=== PATIENT | female | born 1945 | race Caucasian/White ===

== ENCOUNTER 2020-04-05 07:06 | Outpatient (CLI) | payer MEDICARE, OTHER, SELFPAY ==
--- NOTE | 2020-04-05 07:32 | ECG_ITS ---
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 Interpretive Statements NAME OF STUDY: LEXISCAN SESTAMIBI STRESS TEST INDICATION: Chest Pain PROCEDURE: At the baseline, the blood pressure was 170/93 mmHg, oxygen saturation 94% with a heart rate of 73 bpm. The electrocardiogram showed sinus rhythm with frequent isolated PVCs. Possible old septal infarct. The Lexiscan was infused over a period of 20 seconds. A total of 0.4 milligrams of Lexiscan was infused. The stress phase was continued for a total of 5 minutes. Heart rate at the end of the stress phase was 90 bpm, oxygen saturation 96% with a blood pressure of 200/102 mmHg. The EKG at the peak infusion revealed sinus rhythm at 90 bpm with frequent isolated PVCs. No significant ST-T wave changes. Sestamibi was injected 20 seconds after the Lexiscan infusion. Blood pressure at the end of the recovery phase was 189/99 mmHg, oxygen saturation 94% with a heart rate of 87 beats per minute. CONCLUSION: 1. No significant EKG changes with the LexiScan infusion. 2. No LexiScan induced chest pain or cardiac arrhythmia. 3. Normal blood pressure and heart rate response. 4. Sestamibi/sestamibi perfusion scan pending; see separate report. Electronically Signed On 04-05-2020 14:03:14 CDT by Liliana Young M.D. [id number]
--- NOTE | 2020-04-05 07:33 | NMCV_ITS ---
NM matty perf SPECT r/s* [id number] Amaris Romero Age: 75 Gender: F : 1945 Exam Date: 04/05/2020 08:34 Ordering Phys: Abdoul Robles MD Technologist: CHRISTY Mendieta Exam Location: [facility] Indications: CHEST PAIN STRESS TEST Please [facility] IMAGE PROTOCOL Rest/Stress 1 Lexiscan Day Radiopharmaceutical Dose (mCi) Administration Site Administered by Rest: Tc-99m 10.8 IV June Zimmeramn BAKERY TEAM LEADER Sestamibi Stress:Tc-99m 32.4 IV June Zimmerman, BAKERY TEAM LEADER Sestamibi Rest: 05-Apr-2020 60 Discovery 630 Stress: 05-Apr-2020 30 Discovery 630 0.4mg Lexiscan. Images obtained in supine and prone position. SPECT RESULTS Technical Quality: Good Raw Data Analysis: Normal; UNABLE TO GATE DUE TO PVCs Image Corrections: No attenuation or motion correction applied Summed Stress Score: 0 Summed Rest Score: 0 Summed Difference Score: 0 PERFUSION FINDINGS Very small size perfusion abnormality of mild severity of apical anterior and apical lateral wall on rest images with improved tracer uptake in apical anterior wall on prone stress images. This is likely suggestive of attenuation artifact. FUNCTIONAL RESULTS (calculated via Gated SPECT) TID: 1.15 FUNCTIONAL FINDINGS: The left ventricle is normal in size. Transient Ischemia Dilatation of 1.1. Study could not be gated due to frequent PVCs. IMPRESSIONS 1. Myocardial perfusion imaging is normal. Attenuation artifact noted on apical anterior and apical lateral donovan. 2. The left ventricle is normal in size. Transient Ischemia Dilatation of 1.1. 3. Study could not be gated due to frequent PVCs. 4. No ischemia noted on the study. 5. No prior similar studies to compare. Liliana Young MD (Electronically Signed) Final Date: 05 April 2020 14:10 S
[2020-04-05 07:48] VITALS: BMI 24.3
[2020-04-05] MEDS: regadenoson 0.4 Mg/5 ml Syringe IVP (09:28)
[2020-04-05 09:42] VITALS: BP 189/99; PULSE 86
== END 2020-04-05 07:07 | disposition home or self-care (01) ==
LOC: CDL 07:07
PROVIDERS: PCP Family Medicine; Visit Provider Family Medicine
DX: R07.9 Chest pain, unspecified (principal)
CPT/HCPCS: 78452; 93017; A9500; J2785

== ENCOUNTER 2020-06-01 12:58 | Outpatient (CLI) | payer MEDICARE, OTHER, SELFPAY ==
--- NOTE | 2020-06-01 13:06 | MM_ITS ---
WS: [id number] BILATERAL SCREENING DIGITAL MAMMOGRAM WITH CAD HISTORY: SCREENING COMPARISON: 04/02/2019, 03/05/2018 and 03/04/2017 Bilateral CC and MLO views submitted. Computer aided detection analyzed. Breast composition: There are scattered areas of fibroglandular density. No suspicious masses, microc alcifications or architectural distortion. Stable benign granulomas and parenchymal pattern. MM/[place] [id number] IMPRESSION: BI-RADS: 2-Benign FOLLOW UP: 1 Year Follow-up
== END 2020-06-01 12:59 | disposition home or self-care (01) ==
LOC: RADSHAW 13:02
PROVIDERS: PCP Family Medicine; Visit Provider Family Medicine
DX: Z12.31 Encounter for screening mammogram for malignant neoplasm of breast (principal)
CPT/HCPCS: 77067

== ENCOUNTER 2021-01-26 08:41 | Outpatient (CLI) | payer MEDICARE, OTHER, SELFPAY ==
[2021-01-26 11:28] LABS: Basophils % 0.3 %; Eosinophils % 0.1 %; Hematocrit 42.4 % (37.0-47.0); Hemoglobin 13.3 g/dL (11.5-15.3); Lymphocytes # 1.4 10^3/uL (0.8-4.8); Lymphocytes % 17.3 %; Mean Corpuscular HGB Conc 31.4 g/dL (30.0-36.0); Mean Corpuscular Hemoglobin 27.7 pg (28.0-34.0); Mean Corpuscular Volume 88.1 fL (81-99); Mean Platelet Volume 12.1 fL (7.4-10.4); Monocytes # 0.7 10^3/uL (0.2-0.9); Monocytes % 9.4 %; Neutrophils % 72.4 %; Nucleated Red Blood Cells % 0 %; Red Blood Count 4.81 10^6/uL (4.1-5.3); Red Cell Distribution Width 13.3 % (12.1-15.1); White Blood Count 7.9 10^3/uL (4.0-10.0)
--- NOTE | 2021-01-26 11:36 | ONC CON_ITS ---
Dr. Mckenzie New Patient Note Patient: Amaris Romero Unit #: [id number]: 1945 Dicatated By: Angel Mckenzie M.D.Date of Visit: Jan 26, 2021 Onc MED New Patient/Consult Referring Physician: Dr. DARIUS ROBLES M.D. Chief Complaint: Thrombocytopenia. History of Present Illness: This is a 75 year-old woman with mild thrombocytopenia. She has hypertension and chronic anxiety. She had recently seen Dr. Robles with complaints of feeling very tired and having real bad sweating. She apparently was found to have hypothyroidism, and she felt better after starting on thyroid replacement. In the meantime, her laboratory studies apparently also showed a low platelet count for which she had a repeat CBC on 01/02/2021. That study showed a normal hemoglobin at 13.2 g with hematocrit 41.6%. The red cell indices were normal. The white blood cell count was 7100. The platelet count was mildly decreased at 92,000. She says she feels fine now. Since starting the thyroid replacement her energy has improved and she has normal activity. Her appetite is good. She has been gaining weight. She has not had fever. Her sweating is also better now. She has some sinus drainage off and on and she has a little bit of dry cough. She does not complain of shortness of breath. She previously had an episode of significant pain in the substernal/epigastric area radiating through to the back. She had a negative stress test. She has had no other cardiac symptoms. She has heartburn occasionally. She has no other GI or complaints. She complains that her knees hurt and her right middle finger tends to lock up. She has no other joint or bone pain. She does not complain of headache or dizziness. She has no numbness/paresthesia or other focal neurologic symptoms. She has not been aware of abnormal bruising or other bleeding manifestations. Past Medical History: Her medical history includes anxiety, hypertension, and hypothyroidism. She has a remote history of C. difficile colitis. Past Surgical History: Her surgical/procedural history includes arthroscopic right knee surgery, Caesarean section, cholecystectomy, and hysterectomy, probably with unilateral oophorectomy. Medications: Atenolol (25 mg) Tablet Oral daily, Calcium (150 mg) Tablet Oral daily, clonazePAM (1 mg) Tablet Oral b.i.d. PRN, Levothyroxine Sodium (25 mcg) Tablet Oral daily, Losartan Potassium (100 mg) Tablet Oral daily, Maxalt (10 mg) Tablet Oral daily PRN, Multi Vitamin Daily Tablet Oral daily, Venlafaxine HCl ER (75 mg) Capsule SR 24 HR Oral daily Allergies: No Known Allergies. Social History: Ms. Romero is . She had smoked in the past, approximately 1/2 pack of cigarettes daily. She quit smoking at least 40 years ago. She has had very minimal alcohol use and only during the past year or so. Family History: Father of stomach cancer at age 75. Mother with heart disease at age 68. She has 1 brother and 1 sister, health status unknown to the patient. They lost a child at age 4 months. Review Of Symptoms: Constitutional - She had been feeling really tired, that has improved since she started thyroid replacement. She says she feels fine now. She has good appetite. She has gained weight. She has not had fever. She was having a lot of sweating, that also has improved. ECOG score is 0, Eyes - No change in vision, ENMT - No hearing loss or tinnitus. She has sinus drainage off and on. No mouth sores. No sore throat or difficulty swallowing, Hematologic/Lymphatic - No abnormal bruising or bleeding, Respiratory - No shortness of breath. She has a little bit of dry cough. No pleuritic pain or hemoptysis, Cardiovascular - She had an episode of pain in her epigastric area radiating through to her back. Stress test was negative, Gastrointestinal - No nausea or vomiting. She occasionally has heartburn. No diarrhea or constipation. No blood in the stool or black stools, Genitourinary (F) - No dysuria or hematuria. No urinary frequency. No urgency or incontinence, Musculoskeletal - She complains that her knees hurt. Her right middle finger tends to lock up. She has no other joint or bone pain, Integumentary - No skin rash or other skin changes, Neurologic - No headache or dizziness. No numbness or tingling. No other focal neurologic symptoms, Psychiatric - She has some anxiety and stress. No depression. No insomnia. Vital Signs: Performed on Jan 26, 2021 09:47: 0, 0, 26.24, 1.92 sq.m, 68 in, 99 %, 93 /min, 18 /min, 179/88 mm(hg) (HIGH), 98.0 F (LOW), and 172.6 lbs (HIGH). Physical Examination: Constitutional - She appears to be in good general health, Eyes - Sclerae nonicteric. Conjunctivae clear, ENMT - No lesions noted in the oral cavity, Neck - No mass or thyromegaly, Hematologic/Lymphatic - No cervical, clavicular, or axillary adenopathy, Respiratory - Lungs are clear with good air movement bilaterally, Cardiovascular - Heart rhythm is regular. There is no murmur, gallop, or rub noted, Abdomen - Soft and non-tender. Liver and spleen are not enlarged. There is no abdominal mass or ascites noted and there is no inguinal adenopathy, Back/Spine - No spine or CVA tenderness noted, Extremities - No edema. Dorsalis pedis pulses are palpable bilaterally, Integumentary - No rashes. No suspicious skin lesions noted, Neurologic - No focal neurologic deficits noted. Problem List: 1. Mild thrombocytopenia. 2. Hypertension. 3. Hypothyroidism. 4. She has remote history of C. difficile colitis. 5. Chronic anxiety. Problems Addressed with this Encounter and Plan: Patient with mild thrombocytopenia. The cause/clinical significance is uncertain. The laboratory findings and clinical implications were reviewed with the patient. We discussed the fact that this can be artifactual, sometimes due to lab error or possibly due to platelet clumping. If her platelet count is actually low, it can be due to decreased platelet survival or to decrease platelet production by the bone marrow. However, there is no indication as to what may be causing it by clinical evaluation. She will have additional laboratory studies today to include CBC, comprehensive metabolic profile, LDH level, B12 level, sed rate, and SHERIF screen. I will review the blood smear. She will have further evaluation as indicated. Signed By: Angel Mckenzie M.D. <<Signature on File>>
[2021-01-26 11:38] LABS: Alanine Aminotransferase 16 U/L (0-33); Albumin Level 4.3 g/dL (3.5-5.2); Alkaline Phosphatase 103 IU/L (35-105); Blood Urea Nitrogen 10 mg/dL (8-23); Calcium 9.3 mg/dL (8.5-10.5); Carbon Dioxide 23 mmol/L (22-29); Chloride 103 mmol/L (98-107); Glucose 97 mg/dL (65-115); Osmolality Calculated 285 mOsm/kg (285-295); Sodium 138 mmol/L (136-145); Total Bilirubin 0.8 mg/dL (0.15-1.2); Total Protein 7.3 g/dL (6.6-8.7)
[2021-01-26 11:52] LABS: Vitamin B12 631 pg/mL (232-1245)
[2021-01-26 12:10] LABS: LAB Peripheral Smear Sent for Review; Platelet Count 180 10^3/cmm (130-400)
[2021-01-26 12:40] LABS: Anion Gap 16.2 (5-19); Aspartate Amino Transferase 22 U/L (0-32); Lactate Dehydrogenase 227 U/L (135-214); Potassium 4.2 mmol/L (3.5-5.1)
[2021-01-26 12:45] LABS: Erythrocyte Sedimentation Rate 18 mm/hr (0-15)
[2021-01-29 18:07] LABS: Anti-Nuclear Antibody Screen NEGATIVE (NEGATIVE)
== END 2021-01-26 08:42 | disposition home or self-care (01) ==
PROVIDERS: PCP Family Medicine; Visit Provider Internal Medicine Medical Oncology
DX: D69.6 Thrombocytopenia, unspecified (principal); I10 Essential (primary) hypertension; E03.9 Hypothyroidism, unspecified; F41.9 Anxiety disorder, unspecified; Z86.19 Personal history of other infectious and parasitic diseases; Z79.899 Other long term (current) drug therapy
CPT/HCPCS: 36415; 80053; 82607; 83615; 85025; 85651; 86038; 99204

== ENCOUNTER 2021-01-30 06:26 | Outpatient (CLI) | payer MEDICARE, OTHER, SELFPAY ==
[2021-01-30 10:21] LABS: Basophils % 0.1 %; Eosinophils % 0.1 %; Hematocrit 41.4 % (37.0-47.0); Hemoglobin 12.9 g/dL (11.5-15.3); Lymphocytes # 1.7 10^3/uL (0.8-4.8); Lymphocytes % 18.7 %; Mean Corpuscular HGB Conc 31.2 g/dL (30.0-36.0); Mean Corpuscular Hemoglobin 27.5 pg (28.0-34.0); Mean Corpuscular Volume 88.3 fL (81-99); Mean Platelet Volume 12.5 fL (7.4-10.4); Monocytes % 11.5 %; Neutrophils # 6.14 10^3/uL (1.8-7.7); Neutrophils % 68.9 %; Nucleated Red Blood Cells % 0 %; Platelet Count 161 10^3/cmm (130-400); Red Blood Count 4.69 10^6/uL (4.1-5.3); Red Cell Distribution Width 13.4 % (12.1-15.1); White Blood Count 8.9 10^3/uL (4.0-10.0)
[2021-01-30 10:24] LABS: LAB Peripheral Smear Sent for Review
== END 2021-01-30 06:27 | disposition home or self-care (01) ==
LOC: ONCMED 06:29
PROVIDERS: PCP Family Medicine; Visit Provider Internal Medicine Medical Oncology
DX: D69.6 Thrombocytopenia, unspecified (principal)
CPT/HCPCS: 36415; 85025

== ENCOUNTER 2021-08-02 14:20 | Outpatient (CLI) | payer MEDICARE, OTHER, SELFPAY ==
--- NOTE | 2021-08-02 14:29 | MM_ITS ---
WS: [id number] SCREENING DIGITAL MAMMOGRAM WITH CAD HISTORY: SCREENING COMPARISON: 06/01/2020, 04/02/2019 and 03/05/2018 Bilateral CC and MLO views submitted. Computer aided detection analyzed. Breast composition: There are scattered areas of fibroglandular density. Asymmetry measuring 12 mm in the upper-outer quadrant of the LEFT breast has become more prominent as compared to prior studies. This is probably along the 3:00 axis. There are additional benign calcifications within each breast. MM/[place] [id number] IMPRESSION: BI-RADS: 0-Incomplete: Need additional imaging evaluation FOLLOW UP: Need Additional Imaging LEFT breast: Spot compression views (CC and MLO). True ML. Ultrasound to follow if abnormality persists.
== END 2021-08-02 14:21 | disposition home or self-care (01) ==
LOC: RADSHAW 14:27
PROVIDERS: PCP Family Medicine; Visit Provider Family Medicine
DX: Z12.31 Encounter for screening mammogram for malignant neoplasm of breast (principal)
CPT/HCPCS: 77067

== ENCOUNTER 2021-08-13 10:37 | Outpatient (CLI) | payer MEDICARE, OTHER, SELFPAY ==
--- NOTE | 2021-08-13 10:43 | MM_ITS ---
WS: [id number] ADDITIONAL VIEWS LEFT MAMMOGRAM HISTORY: ABNORMAL MAMMOGRAM COMPARISON: 08/02/2021, 06/01/2020, 04/02/2019 and 02/26/2016 Spot compression views LEFT breast in CC, MLO projections and true ML submitted. The asymmetry in the lateral LEFT breast on the CC projection nearly completely resolves with additio nal views and becomes similar to prior studies. This area corresponds to the long-term stable nodule in the inferior LEFT breast. No additional imaging necessary at this time. MM/[place] [id number] IMPRESSION: BI-RADS: 2-Benign FOLLOW UP: 1 Year Follow-up
== END 2021-08-13 10:38 | disposition home or self-care (01) ==
LOC: RADSHAW 10:41
PROVIDERS: PCP Family Medicine; Visit Provider Family Medicine
DX: R92.8 Other abnormal and inconclusive findings on diagnostic imaging of breast (principal)
CPT/HCPCS: 77065

== ENCOUNTER → 2022-01-04 12:51 | Outpatient (BNVA) | payer MEDICARE, OTHER, SELFPAY | PROVIDERS: PCP Family Medicine; Visit Provider Family Medicine | DX: R79.89 Other specified abnormal findings of blood chemistry (principal); Z00.00 Encounter for general adult medical examination without abnormal findings; E55.9 Vitamin D deficiency, unspecified; Z13.220 Encounter for screening for lipoid disorders; E03.9 Hypothyroidism, unspecified; I10 Essential (primary) hypertension | CPT/HCPCS: 80053; 80061; 82306; 82607; 84439; 84443; 85025 ==

== ENCOUNTER → 2022-02-22 11:17 | Outpatient (BNVA) | payer MEDICARE, OTHER, SELFPAY | PROVIDERS: PCP Family Medicine; Visit Provider Family Medicine | DX: R30.0 Dysuria (principal) | CPT/HCPCS: 81000; 87077; 87086; 87184 ==

== ENCOUNTER → 2022-03-22 11:05 | Outpatient (BNVA) | payer MEDICARE, OTHER, SELFPAY | PROVIDERS: PCP Family Medicine; Visit Provider Emergency Medicine | DX: N39.0 Urinary tract infection, site not specified (principal); R39.9 Unspecified symptoms and signs involving the genitourinary system | CPT/HCPCS: 81000; 87077; 87086; 87184 ==

== ENCOUNTER → 2022-04-27 19:30 | Outpatient (BNVA) | payer MEDICARE, OTHER, SELFPAY | PROVIDERS: PCP Family Medicine; Visit Provider Emergency Medicine | DX: N39.0 Urinary tract infection, site not specified (principal); K92.2 Gastrointestinal hemorrhage, unspecified | CPT/HCPCS: 81000; 87077; 87086; 87184 ==

== ENCOUNTER → 2022-09-06 13:54 | Outpatient (BNVA) | payer MEDICARE, OTHER, SELFPAY | PROVIDERS: PCP Family Medicine; Visit Provider Nurse Practitioner Family | DX: R30.0 Dysuria (principal) | CPT/HCPCS: 81000; 87077; 87086; 87184 ==

== ENCOUNTER → 2022-09-22 17:10 | Outpatient (BNVA) | payer MEDICARE, OTHER, SELFPAY | PROVIDERS: PCP Family Medicine; Visit Provider Nurse Practitioner | DX: R39.9 Unspecified symptoms and signs involving the genitourinary system (principal); N39.0 Urinary tract infection, site not specified | CPT/HCPCS: 81000; 87077; 87086; 87184 ==

== ENCOUNTER 2022-10-21 11:23 | Emergency (ER) | payer MEDICARE, OTHER, SELFPAY ==
[2022-10-21 11:37] VITALS: BP 190/74; PULSE 80; RESP 18; TEMP 36.7; O2SAT 97
--- NOTE | 2022-10-21 13:44 | ECG_ITS ---
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 Measurements Intervals [place] Rate: 75 P: 71 [place]: 195 QRS: -9 QRSD: 110 T: 44 QT: 375 QTc: 419 Interpretive Statements SINUS RHYTHM WITH OCCASIONAL VENTRICULAR PREMATURE COMPLEXES VOLTAGE CRITERIA FOR LVH [MEETS CRITERIA IN ONE OF: R(aVL), S(V1), R(V5), R(V5/V6)+S(V1)] POSSIBLE ANTERIOR MYOCARDIAL INFARCTION , OF INDETERMINATE AGE [30 ms Q WAVE IN V3/V4, OR R < 0.2 mV IN V4] No previous ECG available for comparison Electronically Signed On 10-21-2022 23:42:31 CDT by Lien De La Cruz M.D. [id number]
[2022-10-21 13:55] VITALS: BP 209/97; O2SAT 99
--- NOTE | 2022-10-21 13:58 | CT_ITS ---
WS: [id number] CT HEAD TECHNIQUE: Noncontrast CT of the head obtained from the skullbase to the vertex. CLINICAL INFORMATION: headache, htn COMPARISON: None. DLP: 1092.[address] scans at [facility] use at least one of these dose optimization techniques: automated e xposure control; mA and/or kV adjustment per patient size (includes targeted exams where dose is matc hed to clinical indication); or iterative reconstruction. FINDINGS: No evidence of intracranial hemorrhage or mass effect. Ventricular system and basal cisterns are guevara nt. Moderate small vessel changes with moderate parenchymal volume loss. Mild vascular calcification. No extra-axial fluid collections. No evidence of mass or mass effect. Tiny chronic lacunar infarcts LEFT caudate. Paranasal sinuses and mastoid air cells are well aerated. .Normal visualized soft tissues. CT/CT head wo con* [id number] IMPRESSION: 1. No evidence of intracranial hemorrhage or mass effect. 2. Moderate small vessel changes. Moderate parenchymal volume loss. 3. Mild vascular calcification. 4. No acute intracranial findings.
[2022-10-21 14:12] LABS: Basophils % 0.1 %; Eosinophils % 0.1 %; Hematocrit 43.8 % (37.0-47.0); Hemoglobin 13.9 g/dL (11.5-15.3); Lymphocytes # 1.7 10^3/uL (0.8-4.8); Lymphocytes % 16.7 %; Mean Corpuscular HGB Conc 31.7 g/dL (30.0-36.0); Mean Corpuscular Hemoglobin 27.6 pg (28.0-34.0); Mean Corpuscular Volume 86.9 fl (81-99); Mean Platelet Volume 11.6 fL (7.4-10.4); Monocytes % 9.9 %; Neutrophils % 72.8 %; Nucleated Red Blood Cells % 0 %; Platelet Count 181 10^3/cmm (130-400); Red Blood Count 5.04 10^6/uL (4.1-5.3); Red Cell Distribution Width 13.5 % (12.1-15.1); White Blood Count 9.9 10^3/uL (4.0-10.0)
[2022-10-21 14:32] VITALS: BP 180/73
[2022-10-21] MEDS: CLONazepam 1 mg Tablet PO (14:32)
[2022-10-21] MEDS: cloNIDine 0.1 mg Tablet 0.2 MG PO (14:32)
[2022-10-21 14:39] LABS: Alanine Aminotransferase 17 U/L (0-33); Albumin Level 4.6 g/dL (3.5-5.2); Alkaline Phosphatase 92 U/L (35-105); Anion Gap 17.9 (5-19); Aspartate Amino Transferase 23 U/L (0-32); Blood Urea Nitrogen 10 mg/dL (8-23); Calcium 9.6 mg/dL (8.5-10.5); Carbon Dioxide 25 mmol/L (22-29); Chloride 95 mmol/L (98-107); Globulin 3.4 g/dL (1.3-4.6); Glucose 94 mg/dL (65-115); Osmolality Calculated 277 mOsm/kg (285-295); Potassium 3.9 mmol/L (3.5-5.1); Sodium 134 mmol/L (136-145); Thyroid Stimulating Hormone 2.97 uIU/mL (0.27-4.20)
--- NOTE | 2022-10-21 14:41 | W.ED.GENADLT ---
HPI - General Adult General: Chief complaint: General Medical Stated complaint: High Blood Pressure Time Seen by Provider: 10/21/22 13:44 History of Present Illness: Patient presents to the ER with complaints of high blood pressure. Patient is on blood pressure medicine and does take them consistently. Patient went multiple docs over the last several weeks and her blood pressure has been increasingly higher. Patient went to urgent care today for high blood pressure and a headache they found it to be 209/91 and referred her back to her primary care physician since they said they do not start any new blood pressure medicine and I told her she will go to the ER if she needs something quicker. Patient does have anxiety and has a a lot of stress currently in her life with her multiple doctors visits and her dog who is in very poor health. MD complaint: Hypertension headache Onset (ago): day(s) Location: head Radiation: non-radiation Severity: moderate Quality: dull and constant Relieving factors: none Exacerbating factors: none Associated symptoms: Reports no associated symptoms; Deny chest pain, dyspnea, nausea, rash, palpitations or vomiting Treatments prior to arrival: none Review of Systems General: Reports: 10 or more systems reviewed and unremarkable except in HPI and below Const: Denies: fever(s) or chills Eyes: Denies: change in vision ENMT: Denies: throat pain or odynophagia Card: Denies: chest pain, palpitations, irregular heart rhythm or edema Resp: Denies: dyspnea, productive cough or non-productive cough GI: Denies: abdominal pain, nausea, vomiting or diarrhea : Denies: flank pain or dysuria Musc: Denies: neck pain, back pain or extremity pain Skin/Breast: Denies: rash or pruritus PFSH ED PFSH: Medical History Burning mouth syndrome Hx of basal cell carcinoma Macular degeneration Surgical History H/O knee surgery History of hysterectomy Hx laparoscopic cholecystectomy Family History Father Cancer Stomach Alcoholic Grandmother Cancer Colon Cancer Social History Smoking and tobacco status: former smoker Quit status (tobacco): has quit using tobacco Year quit tobacco: 1989 Former quit date comment: 5 pack years Alcohol intake: never Supplemental [facility] Information: . Physical Exam HENMT: COMMON NORMALS: normocephalic, atraumatic, hearing grossly normal bilaterally, external ears normal, Normal external nose present and moist oral mucous membranes HEAD & SCALP: normocephalic and atraumatic NOSE: Normal external nose present EXTERNAL EAR: Yes external ears normal Eye: COMMON NORMALS: Equal, round and reactive pupils present, EOMs intact bilaterally, conjunctivae normal and no scleral icterus CONJUNCTIVA: Yes conjunctivae normal PUPIL: Yes Equal, round and reactive pupils present Neck/C-Spine: COMMON NORMALS: full ROM, no lymphadenopathy, supple, no meningeal signs, no JVD and Thyroid normal THYROID: Thyroid normal Chest: COMMONS NORMALS: normal inspection of the chest and normal palpation of entire chest wall Resp: COMMON NORMALS: normal respiratory effort, No retractions, No use of accessory muscles and clear to auscultation bilaterally AUSCULTATION: clear to auscultation bilaterally Cardio: COMMON NORMALS: no JVD, regular rate, regular rhythm, S1 normal heart sound present, S2 normal heart sound present, No gallops present (Cardio), No clicks present (Cardio) and No murmurs present (Cardio) RATE: regular rate RHYTHM: regular rhythm HEART SOUNDS: S1 normal heart sound present and S2 normal heart sound present GI: COMMON NORMALS: Normal to inspection, nondistended, normoactive bowel sounds present, Soft to palpation, non-tender, No hepatosplenomegaly present and no masses PALPATION: Yes Soft to palpation and Yes No hepatosplenomegaly present : COMMON NORMALS: Yes no CVA tenderness BLADDER/KIDNEY EXAM: Yes no CVA tenderness Back/Pelvis: COMMON NORMALS: no CVA tenderness and thoracic and lumbar spine normal to inspection Extremity: COMMON NORMALS: normal to inspection and full ROM Neuro: MENINGEAL SIGNS: Yes no meningeal signs Course Vital Signs: Vital signs: Vital Signs Temperature 98.0 F 10/21/22 11:37 Pulse Rate 80 10/21/22 11:37 Respiratory Rate 18 10/21/22 11:37 Blood Pressure 124/79 10/21/22 17:12 Pulse Oximetry 92 10/21/22 15:54 Oxygen Delivery Me thod 10/21/22 15:54 MDM - General Adult Medical Decision Making Patient presents to the ER with complaints of severe high blood pressure, patient's blood pressure upon arrival was 209/91, patient is on blood pressure medicine and has been taking it consistently. Patient is very anxious. Patient was complaining of a headache as well. Lab work was obtained which was essentially benign as well as a head CT. Patient was given clonidine 0.2 mg p.o. and Klonopin 1 mg p.o. and blood pressure was lowered nicely to 126/84 patient's anxiety resolved and patient was feeling much better. Patient will be discharged on clonidine to go home on on an as-needed basis for blood pressures greater than 160. It was discussed that patient may need to talk with her family doctor about increasing her Klonopin. And her Effexor for her chronic anxiety Differential Diagnosis High blood pressure, headache, anxiety Medical Records I reviewed the patient's medical records. Lab Data I reviewed the patient's lab results. 10/21/22 14:04 10/21/22 14:[address] 10/21/22 13:58 IMPRESSION: 1. No evidence of intracranial hemorrhage or mass effect. 2. Moderate small vessel changes. Moderate parenchymal volume loss. 3. Mild vascular calcification. 4. No acute intracranial findings. Laboratory Results WBC 9.9 10^3/uL (4.0-10.0) 10/21/22 14:04 RBC 5.04 10^6/uL (4.1-5.3) 10/21/22 14:04 Hgb 13.9 g/dL (11.5-15.3) 10/21/22 14:04 Hct 43.8 % (37.0-47.0) 10/21/22 14:04 MCV 86.9 fl (81-99) 10/21/22 14:04 MCH 27.6 pg (28.0-34.0) L 10/21/22 14:04 MCHC 31.7 g/dL (30.0-36.0) 10/21/22 14:04 RDW 13.5 % (12.1-15.1) 10/21/22 14:04 Plt Count 181 10^3/cmm (130-400) 10/21/22 14:04 MPV 11.6 fL (7.4-10.4) H 10/21/22 14:04 Neut % (Auto) 72.8 % 10/21/22 14:04 Lymph % (Auto) 16.7 % 10/21/22 14:04 [place] % (Auto) 9.9 % 10/21/22 14:04 Eos % (Auto) 0.1 % 10/21/22 14:04 Baso % (Auto) 0.1 % 10/21/22 14:04 Neut # (Auto) 7.20 10^3/uL (1.8-7.7) 10/21/22 14:04 Lymph # (Auto) 1.7 10^3/uL (0.8-4.8) 10/21/22 14:04 [place] # (Auto) 1.0 10^3/uL (0.2-0.9) H 10/21/22 14:04 Eos # (Auto) 0.0 10^3/uL (0.0-0.8) 10/21/22 14:04 Baso # (Auto) 0.0 10^3/uL (0.0-0.1) 10/21/22 14:04 Nucleated RBC % (auto) 0 % 10/21/22 14:04 Nucleated RBCs # 0.0 /100WBC 10/21/22 14:04 Sodium 134 mmol/L (136-145) L 10/21/22 14:04 Potassium 3.9 mmol/L (3.5-5.1) 10/21/22 14:04 Chloride 95 mmol/L (98-107) L 10/21/22 14:04 Carbon Dioxide 25 mmol/L (22-29) 10/21/22 14:04 Anion Gap 17.9 (5-19) 10/21/22 14:04 BUN 10 mg/dL (8-23) 10/21/22 14:04 Creatinine 0.6 mg/dL (0.5-0.9) 10/21/22 14:04 GFR Calculation Not Reportable 10/21/22 14:04 Glucose 94 mg/dL (65-115) 10/21/22 14:04 Calculated Osmolality 277 mOsm/kg (285-295) L 10/21/22 14:04 Calcium 9.6 mg/dL (8.5-10.5) 10/21/22 14:04 Total Bilirubin 1.0 mg/dL (0.15-1.2) 10/21/22 14:04 AST 23 U/L (0-32) 10/21/22 14:04 ALT 17 U/L (0-33) 10/21/22 14:04 Alkaline Phosphatase 92 U/L (35-105) 10/21/22 14:04 Total Protein 8.0 g/dL (6.6-8.7) 10/21/22 14:04 Albumin 4.6 g/dL (3.5-5.2) 10/21/22 14:04 Globulin 3.4 g/dL (1.3-4.6) 10/21/22 14:04 TSH 2.97 uIU/mL (0.27-4.20) 10/21/22 14:04 EKG Data EKG 1: I personally reviewed and interpreted this EKG as follows: EKG interpretation date: 10/21/22 EKG interpretation time: 14:09 Prior EKG tracings: not available for review Interpretation: KG showed ventricular rate of 75 bpm, ME interval 195, QRS duration 110, QTc 4 3, sinus rhythm with occasional ventricular PVCs, LVH, Computer generated interpretation: Head CT 10/21/22 13:58 IMPRESSION: 1. No evidence of intracranial hemorrhage or mass effect. 2. Moderate small vessel changes. Moderate parenchymal volume loss. 3. Mild vascular calcification. 4. No acute intracranial findings. Discharge Plan Discharge Patient Disposition: Home Clinical Impression: Anxiety, Hypertension Condition: Stable Prescriptions: New clonidine HCl 0.1 mg tablet 0.1 mg PO Q12H PRN (Reason: for blood pressure greater than 160 ) Qty: 14 0RF No Action venlafaxine [Effexor XR] 75 mg capsule,extended release 24hr 75 mg PO DAILY diclofenac sodium 1 % gel See Rx Instructions .ROUTE .COMPLEX Qty: 100 12RF Dose Instruction: APPLY 4 GRAMS TO AFFECTED KNEE EVERY 8 HOURS NEEDED FOR PAIN Rx Instructions: APPLY 4 GRAMS TO AFFECTED KNEE EVERY 8 HOURS NEEDED FOR PAIN clonazepam 1 mg tablet 1 mg PO TID PRN (Reason: Anxiety) atenolol 25 mg tablet 25 mg PO DAILY losartan 100 mg tablet 100 mg PO DAILY Discharge Orders: Discharge ED (Routine); Ordered 10/21/22 Ordered By: Noe Ellis Referrals: Abdoul Robles MD [Primary Care Provider] - 1 week Patient Instructions: Anxiety (ED), Hypertension Coding Level of Care Code ED [employer] Teacher for [place]
[2022-10-21 15:54] VITALS: BP 152/63; O2SAT 92
[2022-10-21 16:14] VITALS: BP 109/72
[2022-10-21 17:12] VITALS: BP 124/79
== END 2022-10-21 18:13 | disposition home or self-care (01) ==
PROVIDERS: Emergency Provider Emergency Medicine; PCP Family Medicine
DX: F41.9 Anxiety disorder, unspecified (principal); I10 Essential (primary) hypertension; H35.30 Unspecified macular degeneration; Z87.891 Personal history of nicotine dependence
CPT/HCPCS: 36415; 70450; 80053; 84443; 85025; 93005; 99285

== ENCOUNTER 2022-11-14 09:03 | Outpatient (CLI) | payer MEDICARE, OTHER, SELFPAY ==
--- NOTE | 2022-11-14 09:16 | CTR_ITS ---
PROCEDURE INFORMATION: Exam: CT Abdomen And Pelvis Without And With Contrast Exam date and time: 11/14/2022 11:07 AM Age: 77 years old Clinical indication: Other: Hematuria; Prior surgery; Surgery type: Gb, csection, hysterectomy TECHNIQUE: Imaging protocol: Computed tomography of the abdomen and pelvis without and with contrast. Radiation optimization: All CT scans at this facility use at least one of these dose optimization techniques: automated exposure control; mA and/or kV adjustment per patient size (includes targeted exams where dose is matched to clinical indication); or iterative reconstruction. Contrast material: OMNI 350; Contrast volume: 100 ml; Contrast route: INTRAVENOUS (IV); REPORTING DATA: Count of CT and Cardiac NM exams in prior 12 months: This patient has received [address] and 0 known cardiac nuclear medicine studies in the 12 months prior to the current study. COMPARISON: No relevant prior studies available. RADIATION DOSE METRICS: Total DLP (mGy-cm): 991.43 FINDINGS: Lungs: The visualized portions of the lung bases are normal. Liver: Normal liver attenuation. No mass. Gallbladder and bile ducts: Status post prior cholecystectomy. Mildly prominent extrahepatic/common bile duct with distal tapering. No calcified stones. Pancreas: Unremarkable CT appearance of the pancreatic parenchyma. No ductal dilatation. Spleen: Normal splenic parenchymal attenuation. No splenomegaly.Some punctate calcified granulomas are seen. Adrenal glands: Normal CT appearance of the adrenals. No mass. Kidneys and ureters: The noncontrast enhanced images show no intrarenal calculi. Normal enhancement of the kidneys without contour deforming masses. Some scattered 0.2-0.4 cm renal cysts are incidentally noted. Bilateral extrarenal pelves. No ureterectasis. No ureteral calculi seen. Stomach and bowel: The contrast opacified stomach appears normal. Tiny hiatal hernia is seen. The contrast opacified small bowel loops appear unremarkable. The predominantly noncontrast opacified loops of colon show moderate constipation. Moderate sigmoid colonic diverticulosis is seen, without CT evidence of diverticulitis. Appendix: No appendix is specifically identified. No CT evidence of fluid collections or inflammatory stranding adjacent to the cecum. Intraperitoneal space: No abdominal ascites. No free air. Vasculature: No abdominal aortic aneurysm. Mild atherosclerotic vascular calcifications. The portal vein and inferior vena cava regions appear normal. Lymph nodes: Unremarkable. No enlarged lymph nodes. Urinary bladder: No bladder debris. No wall thickening. Reproductive: The patient is status post hysterectomy. Bones/joints: Severe degenerative disc disease changes with vacuum phenomenon are noted from the L2-L3 through L5-S1 levels. 0.2 cm anterolisthesis of L5 on S1. Medium to large sized Schmorl's nodes are seen at the L5 level. Small disc osteophyte complex is seen at the L1-L2 level with mild spinal canal narrowing. Degenerative facet disease changes are seen throughout the lumbar spine, severe in the lower lumbar region. Multiple levels of foraminal narrowing. Moderate bilateral hip degenerative changes. Severe symphysis pubis and moderate to severe sacroiliac joint degenerative changes. Soft tissues: Unremarkable. CT/CT abdomen pelvis wo/w [id number] IMPRESSION: 1. No renal, ureteral or bladder calculi. Bilateral extrarenal pelves. No ureterectasis. 2. Unremarkable CT appearance of the bladder. 3. Moderate constipation. Moderate colonic diverticulosis, without CT evidence of diverticulitis. 4. Other chronic findings, as noted above. COMMENTS: Consistent with the [employer]'s Incidental Findings Committee white paper (J Am Katie Radiol 2018): Any incidental renal lesion less than 1 cm or classified as too small to characterize, or any incidental cystic renal lesion characterized as simple-appearing, is likely benign. No follow-up imaging is recommended for these lesions per consensus recommendations based on imaging criteria.
[2022-11-14] MEDS: iohexol 350 mg/mL 500 mL Btl (per mL) PO (09:48)
[2022-11-14] MEDS: iohexol 350 mg/mL 500 mL Btl (per mL) IV (11:13)
== END 2022-11-14 09:04 | disposition home or self-care (01) ==
LOC: RAD 09:07
PROVIDERS: PCP Family Medicine; Visit Provider Nurse Practitioner Family
DX: R31.9 Hematuria, unspecified (principal); K57.30 Diverticulosis of large intestine without perforation or abscess without bleeding
CPT/HCPCS: 74178; Q9967

== ENCOUNTER → 2022-11-15 16:01 | Outpatient (BNVA) | payer MEDICARE, OTHER, SELFPAY | PROVIDERS: PCP Family Medicine; Visit Provider Nurse Practitioner | DX: N39.0 Urinary tract infection, site not specified (principal) | CPT/HCPCS: 81000; 87077; 87086; 87184 ==

== ENCOUNTER → 2022-11-27 15:23 | Outpatient (BNVA) | payer MEDICARE, OTHER, SELFPAY | PROVIDERS: PCP Family Medicine; Visit Provider Specialist | DX: M17.0 Bilateral primary osteoarthritis of knee (principal) | CPT/HCPCS: 20610; 73560; 73565; 99204; J7318 ==

== ENCOUNTER 2022-12-11 13:13 | Outpatient (CLI) | payer MEDICARE, OTHER, SELFPAY ==
--- NOTE | 2022-12-11 13:24 | MM_ITS ---
WS: [id number] BILATERAL 3D TOMOSYNTHESIS DIGITAL SCREENING MAMMOGRAPHY WITH CAD CLINICAL INFORMATION: SCREENING HISTORY: Screening mammogram. No current complaints. COMPARISON: 2021 TECHNIQUE: Bilateral CC and MLO views. FINDINGS: The breasts are composed of heterogeneous fibroglandular density tissue, which can limit the detectio n of small underlying mass lesions. No suspicious mass, asymmetry, calcifications, or architectural d istortion. No evidence of malignancy. Punctate and lucent centered calcifications. MM/[id number] IMPRESSION: BI-RADS: 2-Benign FOLLOW UP: 1 Year Follow-up Recommend return to annual screening mammography.
== END 2022-12-11 13:14 | disposition home or self-care (01) ==
PROVIDERS: PCP Family Medicine; Visit Provider Family Medicine
DX: Z12.31 Encounter for screening mammogram for malignant neoplasm of breast (principal)
CPT/HCPCS: 77063; 77067

== ENCOUNTER → 2023-05-19 12:23 | Outpatient (BNVA) | payer MEDICARE, OTHER, SELFPAY | PROVIDERS: PCP Family Medicine; Visit Provider Family Medicine | DX: Z51.81 Encounter for therapeutic drug level monitoring (principal); E03.9 Hypothyroidism, unspecified; E55.9 Vitamin D deficiency, unspecified; E53.8 Deficiency of other specified B group vitamins; C34.90 Malignant neoplasm of unspecified part of unspecified bronchus or lung; R05.9 Cough, unspecified; R19.7 Diarrhea, unspecified; F41.9 Anxiety disorder, unspecified; F32.A Depression, unspecified | CPT/HCPCS: 80053; 82306; 82607; 84443; 85025; 87045; 87427; 87449; 87493 ==

== ENCOUNTER 2023-05-21 13:28 | Outpatient (CLI) | payer MEDICARE, OTHER, SELFPAY ==
--- NOTE | 2023-05-21 13:38 | XR_ITS ---
WS: [id number] PA and lateral chest, 05/21/2023 Clinical Data: Cough Comparison: None. Findings: No nodules, masses or effusions are seen. There is elevation of the right diaphragm with te nting. There is volume loss in the right lung probably from right lung surgery.. There are surgical s taples overlying the right sixth rib with a fracture of the lateral aspect of the right sixth rib fro m surgery. There are calcified granulomas in the right tracheobronchial region. The trachea is deviat ed from left to right. The left lung is clear. The heart is normal. Impression: 1. Postoperative changes in the right lung. 2. Old granulomatous disease.
== END 2023-05-21 13:29 | disposition home or self-care (01) ==
PROVIDERS: PCP Family Medicine; Visit Provider Family Medicine
DX: R05.9 Cough, unspecified
CPT/HCPCS: 71046

== ENCOUNTER → 2023-07-21 15:05 | Outpatient (BNVA) | payer MEDICARE, OTHER, SELFPAY | PROVIDERS: PCP Family Medicine; Visit Provider Nurse Practitioner Family | DX: R05.9 Cough, unspecified (principal); U07.1 COVID-19 | CPT/HCPCS: 87400; 87426 ==

== ENCOUNTER → 2023-09-10 09:22 | Outpatient (BNVA) | payer MEDICARE, OTHER, SELFPAY | PROVIDERS: PCP Family Medicine; Visit Provider Specialist | DX: M17.0 Bilateral primary osteoarthritis of knee (principal) | CPT/HCPCS: 20610; 73560; 73565; 99214; J1100; J2795; J3301 ==

== ENCOUNTER → 2023-10-21 16:07 | Outpatient (BNVA) | payer MEDICARE, OTHER, SELFPAY | PROVIDERS: PCP Family Medicine; Visit Provider Family Medicine | DX: R30.0 Dysuria (principal); I10 Essential (primary) hypertension | CPT/HCPCS: 81000 ==

== ENCOUNTER 2023-10-24 14:19 | Outpatient (CLI) | payer MEDICARE, OTHER, SELFPAY | END 2023-10-24 14:20 | disposition home or self-care (01) | LOC: LAB 14:21 | PROVIDERS: PCP Family Medicine; Visit Provider Family Medicine | DX: R30.0 Dysuria (principal) | CPT/HCPCS: 87077; 87086; 87186 ==

== ENCOUNTER 2023-10-31 09:51 | Outpatient (CLI) | payer MEDICARE, OTHER, SELFPAY ==
--- NOTE | 2023-10-31 10:00 | US_ITS ---
WS: [id number] RENAL ULTRASOUND URINARY BLADDER ULTRASOUND HISTORY: Possible urinary retention - pre/post void bladder volume COMPARISON: CT 11/14/2022 TECHNIQUE: 2-D and color Doppler imaging of the kidney submitted. Right kidney: 8.7 cm x 4.7 cm x 4.5 cm. Mild atrophy. Very similar to the prior study from 11/14/2022. No hydronephrosis. No mass. Left kidney: 9.7 cm x 5.3 cm x 5.5 cm. Low normal size kidney. No hydronephrosis or mass. Aorta: Normal. Urinary Bladder: Normal distention. No intraluminal filling defect. Post void residual 14 mL. IMPRESSION: 1. No hydronephrosis. 2. Mild atrophy RIGHT kidney and low normal size LEFT kidney. No hydronephrosis. 3. No significant post void volume residual.
== END 2023-10-31 09:52 | disposition home or self-care (01) ==
PROVIDERS: PCP Family Medicine; Visit Provider Family Medicine
DX: N39.0 Urinary tract infection, site not specified (principal); R33.9 Retention of urine, unspecified; N26.1 Atrophy of kidney (terminal)
CPT/HCPCS: 76770; 76857

== ENCOUNTER 2023-12-15 13:17 | Outpatient (CLI) | payer MEDICARE, OTHER, SELFPAY ==
--- NOTE | 2023-12-15 13:21 | MM_ITS ---
WS: [id number] BILATERAL 3D TOMOSYNTHESIS DIGITAL SCREENING MAMMOGRAPHY WITH CAD CLINICAL INFORMATION: SCREENING HISTORY: Screening mammogram. No current complaints. COMPARISON: 2022 TECHNIQUE: Bilateral CC and MLO views. FINDINGS: The breasts are composed of heterogeneous fibroglandular density tissue, which can limit the detectio n of small underlying mass lesions. No suspicious mass, asymmetry, calcifications, or architectural d istortion. No evidence of malignancy. Few incidental punctate and coarse calcifications. Vascular lynne cification. MM/[place] [id number] IMPRESSION: BI-RADS: 2-Benign FOLLOW UP: 1 Year Follow-up Recommend return to annual screening mammography.
== END 2023-12-15 13:18 | disposition home or self-care (01) ==
LOC: RAD 13:18
PROVIDERS: PCP Family Medicine; Visit Provider Family Medicine
DX: Z12.31 Encounter for screening mammogram for malignant neoplasm of breast (principal); R92.323 Mammographic fibroglandular density, bilateral breasts; R92.333 Mammographic heterogeneous density, bilateral breasts; R92.1 Mammographic calcification found on diagnostic imaging of breast
CPT/HCPCS: 77063; 77067

== ENCOUNTER → 2023-12-22 09:55 | Outpatient (BNVA) | payer MEDICARE, OTHER, SELFPAY | PROVIDERS: PCP Family Medicine; Visit Provider Specialist | DX: M17.0 Bilateral primary osteoarthritis of knee | CPT/HCPCS: 20610; J1100; J2795; J3301 ==

== ENCOUNTER → 2023-12-30 15:15 | Outpatient (BNVA) | payer MEDICARE, OTHER, SELFPAY | PROVIDERS: PCP Family Medicine; Visit Provider Orthopaedic Surgery | DX: M54.9 Dorsalgia, unspecified (principal); M48.062 Spinal stenosis, lumbar region with neurogenic claudication | CPT/HCPCS: 72100; 99204 ==

== ENCOUNTER → 2024-04-09 10:30 | Outpatient (BNVA) | payer MEDICARE, OTHER, SELFPAY | PROVIDERS: PCP Family Medicine; Visit Provider Specialist | DX: M17.0 Bilateral primary osteoarthritis of knee (principal) | CPT/HCPCS: 20610; J1100; J2795; J3301 ==

== ENCOUNTER 2024-12-18 23:14 | Emergency (ER) | payer MEDICARE, OTHER, SELFPAY ==
[2024-12-18 23:15] VITALS: BP 205/77; PULSE 93; RESP 16; TEMP 36.6; O2SAT 99; BMI 38.7
--- NOTE | 2024-12-18 23:24 | ECG_ITS ---
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 Measurements Intervals [place] Rate: 90 P: 68 MI: 182 QRS: -21 QRSD: 108 T: 73 QT: 344 QTc: 421 Interpretive Statements SINUS RHYTHM WITH FREQUENT VENTRICULAR PREMATURE COMPLEXES POSSIBLE LEFT ATRIAL ENLARGEMENT [-0.1mV P-WAVE IN V1/V2] INCOMPLETE RIGHT BUNDLE BRANCH BLOCK [90+ ms QRS DURATION, TERMINAL R IN V1/V2, 40+ ms S IN I/aVL/V4/V5/V6] LEFT VENTRICULAR HYPERTROPHY AND ST-T CHANGE [VOLTAGE CRITERIA PLUS ST/T ABNORMALITY] POSSIBLE ANTERIOR MYOCARDIAL INFARCTION , OF INDETERMINATE AGE [30 ms Q WAVE IN V3/V4, OR R < 0.2 mV IN V4] Compared to ECG 10/21/2022 14:09:33 Incomplete right bundle-branch block now present ST (T wave) deviation now present Myocardial infarct finding still present Electronically Signed On 12-20-2024 08:59:53 CDT by Ciaran Casillas M.D. [id number]
--- NOTE | 2024-12-18 23:30 | XRR_ITS ---
PROCEDURE INFORMATION: Exam: XR Chest Exam date and time: 12/19/2024 2:38 AM Age: 79 years old Clinical indication: Prior surgery; Surgery date: 6+ months; C/O hypertension. 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 ; Additional info: HTN TECHNIQUE: Imaging protocol: Radiologic exam of the chest. Views: 1 view. COMPARISON: CR XR chest 2V* [id number] 05/21/2023 1:43 PM FINDINGS: Lungs: Unremarkable. No consolidation. Pleural spaces: Unremarkable. No pleural effusion. No pneumothorax. Heart/Mediastinum: The heart is slightly enlarged. There is calcified plaque involving the aorta. Bones/joints: Unremarkable. XR/XR chest 1V portable [id number] IMPRESSION: 1. Mild cardiomegaly.
[2024-12-19 00:16] LABS: Basophils % 0.2 %; Eosinophils % 0.3 %; Hematocrit 41.4 % (36-47); Lymphocytes # 1.5 10^3/uL (0.8-4.8); Lymphocytes % 12.2 %; Mean Corpuscular HGB Conc 30.9 g/dL (30-55); Mean Corpuscular Hemoglobin 26.3 pg (27-33); Mean Corpuscular Volume 85.2 fl (85-98); Mean Platelet Volume 12.9 fL (7.4-10.4); Monocytes # 1.1 10^3/uL (0.2-0.9); Monocytes % 9.4 %; Neutrophils # 9.38 10^3/uL (1.8-7.7); Neutrophils % 77.6 %; Nucleated Red Blood Cells % 0 %; Platelet Count 161 10^3/cmm (157-399); Red Blood Count 4.86 10^6/uL (3.85-5.65); Red Cell Distribution Width 14.6 % (12.1-15.1); White Blood Count 12.08 10^3/uL (3.29-11.43)
[2024-12-19 00:27] LABS: Troponin(5th) Baseline 8 ng/L (0-10)
[2024-12-19 00:30] LABS: Alanine Aminotransferase 10 U/L (0-33); Albumin Level 4.8 g/dL (3.5-5.2); Alkaline Phosphatase 114 U/L (35-105); Anion Gap 16.9 (5-19); Aspartate Amino Transferase 17 U/L (0-32); Blood Urea Nitrogen 12 mg/dL (8-23); Carbon Dioxide 24 mmol/L (22-29); Chloride 98 mmol/L (98-107); Creatinine Clr Calc Pharmacy 78.6575; Globulin 2.6 g/dL (1.3-4.6); Glucose 102 mg/dL (65-115); Osmolality Calculated 280 mOsm/kg (285-295); Potassium 3.9 mmol/L (3.5-5.1); Sodium 135 mmol/L (136-145); Total Bilirubin 0.4 mg/dL (0.15-1.2); Total Protein 7.4 g/dL (6.6-8.7)
[2024-12-19 02:28] LABS: Troponin 5 2HR 7.93 ng/L (0-10)
--- NOTE | 2024-12-19 02:36 | CTR_ITS ---
PROCEDURE INFORMATION: Exam: CT Head Without Contrast Exam date and time: 12/19/2024 3:08 AM Age: 79 years old Clinical indication: Dizziness with hypertension; Additional info: Lightheadedness, accelerated HTN TECHNIQUE: Imaging protocol: Computed tomography of the head without contrast. Radiation optimization: All CT scans at this facility use at least one of these dose optimization techniques: automated exposure control; mA and/or kV adjustment per patient size (includes targeted exams where dose is matched to clinical indication); or iterative reconstruction. COMPARISON: CT head wo con* [id number] 10/21/2022 2:58 PM RADIATION DOSE METRICS: Total DLP (mGy-cm): 1083.19 FINDINGS: Brain: There is prominence of the subarachnoid spaces compatible with atrophy. There is small-vessel ischemic change within the periventricular white matter. No acute stroke or hemorrhage is appreciated. Cerebral ventricles: No ventriculomegaly. Paranasal sinuses: Visualized sinuses are unremarkable. No fluid levels. Mastoid air cells: Visualized mastoid air cells are well aerated. Bones: Unremarkable. No acute fracture. Soft tissues: Unremarkable. CT/CT head wo con* [id number] IMPRESSION: 1. No acute findings.
[2024-12-19] MEDS: CLONazepam 0.5 mg Tablet 1 MG PO (02:49)
[2024-12-19 03:04] LABS: Troponin 5 2HR Delta 0.07 ABS# (0-10)
[2024-12-19 03:30] VITALS: BP 183/73
[2024-12-19] MEDS: cloNIDine 0.1 mg Tablet 0.2 MG PO (03:30)
[2024-12-19 04:14] VITALS: BP 158/82; PULSE 82; RESP 20; O2SAT 95
--- NOTE | 2024-12-19 04:38 | ED_ITS ---
HPI - General Adult 2 General: Chief complaint: General Medical Stated complaint: BP High Time Seen by Provider: 12/19/24 02:22 History of Present Illness: Patient is an adult with a history of multiple surgeries over the past two years, most recently right knee replacement three months ago, followed by three months of physical therapy. Tonight, after a period of feeling well, patient experienced sudden onset of severe dizziness and nearly fell while getting up to go to bed. Patient reports feeling not right and subsequently noted progressively increasing BP at home. Similar episode occurred approximately two years ago, resulting in an ER visit and subsequent cardiology evaluation. At that time, antihypertensive regimen was adjusted (Losartan dose reduced by administrative library assistant). Since then, BP has been well controlled until tonight. Patient denies chest pain or current lightheadedness but reports some shortness of breath, which is attributed to prior right lung resection and knee pain limiting activity. No history of pulmonary embolism. Patient has had prior episodes of labyrinthitis but is unsure if current symptoms are similar. No recent medication changes except for missing usual nighttime clonazepam for two nights; took one dose tonight. No other acute symptoms reported. Related Data Previous Rx's ?Medication ?Instructions ?Recorded clonidine HCl 0.1 mg tablet 0.1 mg PO Q12H PRN for blo od 10/21/22 pressure greater than 160 #14 tabs diclofenac sodium 1 % topical gel 2 g topical QID #100 grams 10/14/23 conjugated estrogens 0.625 mg/gram 0.3125 mg vaginal . Twice a week 11/18/23 vaginal cream (Premarin) #30 grams dicyclomine 10 mg capsule 10 mg PO TID PRN diarrhea #1 80 caps 11/18/23 triamcinolone acetonide 0.1 % 1 applic topical DAILY # 30 grams 11/18/23 topical cream prednisone 20 mg tablet 20 mg PO DAILY #15 tabs 12/12 03/06 cyclobenzaprine 10 mg tablet 10 mg PO TID PRN muscle s pasm 14 01/02/24 days #42 tabs venlafaxine 75 mg capsule,extended See Rx Instructions .Route 08/03/24 release 24 hr .COMPLEX #90 caps losartan 50 mg tablet 50 mg PO DAILY #90 tabs 0302/04 atenolol 25 mg tablet 25 mg PO DAILY high blood pr essure 04/15/25 #90 tabs clonazepam 1 mg tablet 1 mg PO TID PRN Anxiety #90 tabs 12/17/24 Allergies Allergy/AdvReac Type Severity Reaction Status Date / Time Sulfa (Sulfonamide Allergy hives Verified 04/09/24 10:59 Antibiotics) PFSH ED 2 PFSH: Medical History Anxiety and depression Weight gain Hx of basal cell carcinoma Macular degeneration Burning mouth syndrome Surgical History History of lobectomy of lung Right upper lobe removed - [facility] - 03/2023 H/O knee surgery Hx laparoscopic cholecystectomy History of hysterectomy Family History Father Cancer Stomach Alcoholic Grandmother Cancer Colon Cancer Social History Smoking and tobacco/nicotine status: never used tobacco/nicotine Quit status (tobacco/nicotine): has quit using Year quit tobacco: 1989 Former quit date comment: 5 pack years Alcohol intake: never Physical Exam 2 Const: COMMON NORMALS: patient oriented x3 and alert HENMT: COMMON NORMALS: normocephalic and atraumatic HEAD & SCALP: n ormocephalic and atraumatic Eye: COMMON NORMALS: Equal, round and reactive pupils present, EOMs intact bilaterally and no scleral icterus PUPIL: Yes Equal, round and reactive pupils present Resp: COMMON NORMALS: normal respiratory effort and No retractions Cardio: COMMON NORMALS: regular rate, regular rhythm and No murmurs present (Cardio) RATE: regular rate RHYTHM: regular rhythm GI: COMMON NORMALS: Normal to inspection, nondistended, normoactive bowel sounds present, Soft to palpation and non-tender PALPATION: Yes Soft to palpation Neuro: COMMON NORMALS: patient oriented x3 SENSORIUM/ORIENTATION: Yes alert Psych: OTHER: Anxious Skin: COMMON NORMALS: no rashes or lesions noted GENERAL SKIN EXAM: no rashes or lesions noted Course 2 Vital Signs: Vital signs: Vital Signs Temperature 97.8 F 12/18/24 23:15 Pulse Rate 82 12/19/24 04:14 Respiratory Rate 20 H 12/19/24 04:14 Blood Pressure 158/82 12/19/24 04:14 Pulse Oximetry 95 12/19/24 04:14 Oxygen Delivery Me thod Room Air 12/18/24 23:15 MDM - General Adult Medical Decision Making In summary, patient is a generally well-appearing 79-year-old female seen for accelerated hypertension. When she saw her blood pressure rising, she got anxious and came to the emergency department. CT head, EKG, chest x-ray, labs are reassuring with no evidence of acute endorgan damage due to the blood pressure. She was given her normal home dose of clonidine which dropped her blood pressure sufficiently. I do not suspect ACS, PE, pneumonia, stroke, or any other emergent process warranting further workup at this time. She will be discharged home in stable and improved condition with follow-up to primary care to discuss clonidine dosing Lab Data 12/18/24 00:00 12/18/24 00:00 Radiology Impressions Chest X-Ray 12/18/24 23:30 IMPRESSION: 1. Mild cardiomegaly. Head CT 12/19/24 02:36 IMPRESSION: 1. No acute findings. Laboratory Results WBC 12.08 10^3/uL (3.29-11.43) H 12/18/24 00:00 RBC 4.86 10^6/uL (3.85-5.65) 12/18/24 00:00 Hgb 12.80 g/dL (11.27-16.99) 12/18/24 00:00 Hct 41.4 % (36-47) 12/18/24 00:00 MCV 85.2 fl (85-98) 12/18/24 00:00 MCH 26.3 pg (27-33) L 12/18/24 00:00 MCHC 30.9 g/dL (30-55) 12/18/24 00:00 RDW 14.6 % (12.1-15.1) 12/18/24 00:00 Plt Count 161 10^3/cmm (157-399) 12/18/24 00:00 MPV 12.9 fL (7.4-10.4) H 12/18/24 00:00 Neut % (Auto) 77.6 % 12/18/24 00:00 Lymph % (Auto) 12.2 % 12/18/24 00:00 [place] % (Auto) 9.4 % 12/18/24 00:00 Eos % (Auto) 0.3 % 12/18/24 00:00 Baso % (Auto) 0.2 % 12/18/24 00:00 Neut # (Auto) 9.38 10^3/uL (1.8-7.7) H 12/18/24 00:00 Lymph # (Auto) 1.5 10^3/uL (0.8-4.8) 12/18/24 00:00 [place] # (Auto) 1.1 10^3/uL (0.2-0.9) H 12/18/24 00:00 Eos # (Auto) 0.0 10^3/uL (0.0-0.8) 12/18/24 00:00 Baso # (Auto) 0.0 10^3/uL (0.0-0.1) 12/18/24 00:00 Nucleated RBC % (auto) 0 % 12/18/24 00:00 Nucleated RBCs # 0.0 /100WBC 12/18/24 00:00 Sodium 135 mmol/L (136-145) L 12/18/24 00:00 Potassium 3.9 mmol/L (3.5-5.1) 12/18/24 00:00 Chloride 98 mmol/L (98-107) 12/18/24 00:00 Carbon Dioxide 24 mmol/L (22-29) 12/18/24 00:00 Anion Gap 16.9 (5-19) 12/18/24 00:00 BUN 12 mg/dL (8-23) 12/18/24 00:00 Creatinine 0.6 mg/dL (0.5-0.9) 12/18/24 00:00 GFR Calculation Not Reportable 12/18/24 00:00 Glucose 102 mg/dL (65-115) 12/18/24 00:00 Calculated Osmolality 280 mOsm/kg (285-295) L 12/18/24 00:00 Calcium 10.0 mg/dL (8.5-10.5) 12/18/24 00:00 Total Bilirubin 0.4 mg/dL (0.15-1.2) 12/18/24 00:00 AST 17 U/L (0-32) 12/18/24 00:00 ALT 10 U/L (0-33) 12/18/24 00:00 Alkaline Phosphatase 114 U/L (35-105) H 12/18/24 00:00 Troponin T Baseline 8 ng/L (0-10) 12/18/24 00:00 Troponin T 120 Minute 7.93 ng/L (0-10) 12/19/24 01:59 Delta Troponin T 0.07 ABS# (0-10) 12/19/24 01:59 Total Protein 7.4 g/dL (6.6-8.7) 12/18/24 00:00 Albumin 4.8 g/dL (3.5-5.2) 12/18/24 00:00 Globulin 2.6 g/dL (1.3-4.6) 12/18/24 00:00 All radiology interpretation(s) finalized by discharge EKG Data EKG 1: Interpretation: EKG: Time?2323?sinus rhythm with frequent PVCs, rate of 90, no ST segment elevation or depression, no T wave inversions, intervals within the limits. QTc = 421 Computer generated interpretation: Chest X-Ray 12/18/24 23:30 IMPRESSION: 1. Mild cardiomegaly. Head CT 12/19/24 02:36 IMPRESSION: 1. No acute findings. Discharge Plan Discharge Patient Disposition: Home Clinical Impression: Accelerated hypertension Condition: Stable Prescriptions: No Action prednisone 20 mg tablet 20 mg PO DAILY Qty: 15 0RF Rx Instructions: 60mg for three days, 40mg for two days,20mg for two days. diclofenac sodium 1 % gel 2 g topical QID Qty: 100 3RF Rx Instructions: apply to single elbow, wrist or hand; for hand includes palm/fingers/back of hand Premarin 0.625 mg/gram cream 0.3125 mg vaginal .Twice a week Qty: 30 3RF Rx Instructions: off 5 days; repeat cycle dicyclomine 10 mg capsule 10 mg PO TID PRN (Reason: diarrhea) Qty: 180 3RF triamcinolone acetonide 0.1 % cream 1 applic topical DAILY Qty: 30 6RF cyclobenzaprine 10 mg tablet 10 mg PO TID PRN (Reason: muscle spasm) 14 Days Qty: 42 0RF venlafaxine 75 mg capsule,extended release 24hr See Rx Instructions .ROUTE .COMPLEX Qty: 90 3RF Dose Instruction: TAKE 1 CAPSULE DAILY Rx Instructions: TAKE 1 CAPSULE DAILY losartan 50 mg tablet 50 mg PO DAILY Qty: 90 3RF atenolol 25 mg tablet 25 mg PO DAILY Qty: 90 3RF clonazepam 1 mg tablet 1 mg PO TID PRN (Reason: Anxiety) Qty: 90 3RF clonidine HCl 0.1 mg tablet 0.1 mg PO Q12H PRN (Reason: for blood pressure greater than 160 ) Qty: 14 0RF Discharge Orders: Discharge ED (Routine); Ordered 12/19/24 Ordered By: Jose Rodgers Referrals: Abdoul Robles MD [Primary Care Provider, Family Practice] Discharge Diet: Usual diet Discharge Activity: Increase activity as tolerated Patient Instructions: Hypertension (ED) Activity Restrictions/Additional Instructions: Your blood tests, EKG, and CT scan are all reassuring with no evidence of acute endorgan damage due to your high blood pressure. Taking your prescribed clonidine, blood pressure has dropped to a safe level. 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
[2024-12-19 04:45] VITALS: BP 112/59; PULSE 88; RESP 18; O2SAT 96
== END 2024-12-19 04:46 | disposition home or self-care (01) ==
PROVIDERS: Emergency Provider Student in an Organized Health Care Education/Training Program; PCP Family Medicine
DX: I10 Essential (primary) hypertension (principal); Z87.891 Personal history of nicotine dependence
CPT/HCPCS: 36415; 70450; 71045; 80053; 84484; 85025; 93005; 99285; J9999

== ENCOUNTER 2025-01-12 13:33 | Outpatient (CLI) | payer MEDICARE, OTHER, SELFPAY ==
--- NOTE | 2025-01-12 13:38 | MM_ITS ---
WS: [id number] BILATERAL SCREENING DIGITAL TOMOSYNTHESIS MAMMOGRAM WITH CAD HISTORY: SCREENING COMPARISON: 12/15/2023, 12/11/2022 and 08/02/2021 Bilateral CC and MLO views with tomosynthesis and synthetic mammography submitted. Computer aided detection analyzed. Breast composition: The breasts are heterogeneously dense, which may obscure small masses. No suspicious masses, microcalcifications or architectural distortion. Benign calcifications in each breast. MM/MM scr tomosynthesis [id number] IMPRESSION: BI-RADS: 2 - Benign FOLLOW UP: 1 Year Follow-up
== END 2025-01-12 13:34 | disposition home or self-care (01) ==
LOC: RAD 13:34
PROVIDERS: PCP Family Medicine; Visit Provider Family Medicine
DX: Z12.31 Encounter for screening mammogram for malignant neoplasm of breast (principal); R92.333 Mammographic heterogeneous density, bilateral breasts; R92.1 Mammographic calcification found on diagnostic imaging of breast
CPT/HCPCS: 77063; 77067

== ENCOUNTER 2025-04-01 08:09 | Emergency (ER) | payer MEDICARE, OTHER, SELFPAY ==
--- OUTSIDE RECORDS SUMMARY | 2025-04-01 08:16 | XMS_ITS | Clinical Summary ---
Author Organization [facility] Address [address] [address] Care Team Providers Care Supervisor Type Photography Name Role Phone Unavailable Primary Care Provider Unavailabl e Allergies Active Allergy Reactions Criticality Noted Date Comments Sulfa (Sulfonamide Antibiotics) Rash Low 02/11 Medications losartan (COZAAR) 50 mg tablet Take 50 mg by mouth daily. Active clonazePAM (KlonoPIN) 1 mg tablet Take 1 mg by mouth 2 times daily. Active atenoloL (TENORMIN) 25 mg tablet Take 25 mg by mouth daily. Active venlafaxine 75 mg Extended Release 24 hour tablet Take 75 mg by mouth daily with breakfast. Active dicyclomine (BENTYL) 10 mg capsule Take 10 mg by mouth 3 times daily. Active diphenhydrAMINE (BENADRYL) 25 mg tablet Take 25 mg by mouth every 8 hours as needed for Allergies. Active cetirizine (ZyrTEC) 10 mg tablet Take 10 mg by mouth daily. Active conjugated estrogens (Premarin) 0.625 mg/gram vaginal cream Insert 0.5 Grams vaginally. 2 times weekly Active prednisoLONE acetate (PRED FORTE) 1 % suspension Administer 1 Drop in both eyes 2 times daily. Active peg 400-propylene glycol (SYSTANE) 0.4-0.3 % solution 1 Drop every 2 hours. Active olopatadine (Pataday Twice Daily Relief) 0.1 % solution 1 Drop 2 times daily. Active cloNIDine HCL (CATAPRES) 0.1 mg tablet Take 0.1 mg by mouth Continuous as needed. Active acetaminophen (TYLENOL) 325 mg tablet Take 2 Tablets (650 mg) by mouth every 6 hours. 240 Tablet 2024 Active bisacodyL (DULCOLAX) 5 mg Delayed Release tablet Take 1 Tablet (5 mg) by mouth 1 time daily as needed for Constipation. 28 Tablet 2024 Active aspirin (Ecotrin Low Strength) 81 mg Tablet, Delayed Release (E.C.) Take 1 Tablet (81 mg) by mouth 2 times daily. 60 Tablet 5 2:32 PM CDT 2024 Active polyethylene glycol 3350 (Miralax) 17 gram/dose Powder Take 1 Scoop (17 Grams) by mouth daily. Dissolve in 8 ounces of fluid and drink entire liquid 510 Gram Active famotidine (Pepcid) 20 mg tablet Take 1 Tablet (20 mg) by mouth 2 times daily. 60 Tablet 2024 Active tranexamic acid (LYSTEDA) 650 mg Tablet tablet Take 3 Tablets (1,950 mg) by mouth daily after supper. 9 Tablet 5 2:32 PM CDT Active oxyCODONE (ROXICODONE) 5 mg tabletIndications :Primary osteoarthritis of left knee Take 1 Tablet (5 mg) by mouth every 4 hours as needed for Pain, Moderate. Max Daily Amount: 30 mg 42 Tablet Active traMADol (Ultram) 50 mg tabletIndications :Primary osteoarthritis of left knee Take 1 Tablet (50 mg) by mouth every 6 hours as needed for Pain. 28 Tablet Active multivitamin (DAILY-SANDOVAL) tablet Take 1 Tablet by mouth daily. 2024 Discontinued ibuprofen (MOTRIN) 200 mg tablet Take 200 mg by mouth every 6 hours as needed for Pain, Mild. 2024 Discontinued acetaminophen (TYLENOL) 500 mg tablet Take 500 mg by mouth every 6 hours as needed. 2024 Discontinued oxyCODONE (ROXICODONE) 5 mg tabletIndications :Primary osteoarthritis of left knee Take 1 Tablet (5 mg) by mouth every 4 hours as needed for Pain, Moderate. Max Daily Amount: 30 mg 42 Tablet 2:32 PM CDT 025 2024 Discontinued(R eorder) traMADol (Ultram) 50 mg tabletIndications :Primary osteoarthritis of left knee Take 1 Tablet (50 mg) by mouth every 6 hours as needed for Pain. 28 Tablet 025 2024 Discontinued(R eorder) celecoxib (CeleBREX) 200 mg capsule Take 1 Capsule (200 mg) by mouth 2 times daily for 14 days. 28 Capsule 2:32 PM CDT 025 2024 Active Problems Problem Noted Date Diagnosed Date Status post total left knee replacement 03/15/20 Primary osteoarthritis of left knee 02/22/2025 Irritable bowel syndrome 02/22/2025 Anemia 02/22/2025 Status post total right knee replacement 025 Primary osteoarthritis of right knee 07/15/2024 Preoperative general physical examination 2024 Anxiety 07/15/2024 Primary hypertension 07/15/2024 Dyslipidemia 07/15/2024 History of tobacco use 07/15/2024 History of lobectomy of lung 07/15/2024 Encounters Date Type Department Care Team Description 03/24/2025 Refill [facility] [address] [place] [address] Tacho Rodgers MD Primary osteoarthritis of left knee 03/21/2025 [facility] [address] [place] [address] Tacho Rodgers MD Information 03/21/2025 Telephone [facility] Case Management [address] [place] [id number] Tacho Rodgers MD Hospital Follow Up 03/19/2025 [facility] Case Management [address] [place] [address] Tacho Rodgers MD Hospital Follow Up (Day 3) 03/15/2025 11:54 AM CDT - 03/15/2025 1:23 PM CDT Surgery [facility] Operating Room [address] [place] [address] Tacho Rodgers MD KNEE ARTHROPLASTY TOTAL REPLACEMENT 03/15/2025 11:47 AM CDT Anesthesia Event [facility] Operating Room [address] [place] [address] Zack Ding MD Crabtree, Chris-Anne, CRNA 03/15/2025 8:45 AM CDT - 03/16/2025 2:21 PM CDT Hospital Encounter [facility] Inpatient [address] [place] [address] Tacho Rodgers MD Status post total left knee replacement Discharge Disposition: Home or Self Care 03/15/2025 External Device Data STL ABSTRACTION Provider, Abstract 2025 External Device Data Initial Department [address] [place] [address] Dr ROBERTS: [place] [address] Yuniel White Md 03/02/2025 External Device Data STL ABSTRACTION Provider, Abstract 02/22/2025 3:12 PM CDT - 02/22/2025 11:59 PM CDT Hospital Encounter [facility] Imaging [facility] [address] [place] [address] Celso Tate MD Discharge Disposition: Home or Self Care 02/22/2025 1:53 PM CDT - 02/22/2025 11:59 PM CDT Hospital Encounter [facility] Pre Admission [facility] [address] [place] [address] Tacho Rodgers MD Discharge Disposition: Home or Self Care 02/22/2025 Travel 02/16/2025 External Device Data Initial Department [address] [place] [address] Dr ROBERTS: [place] [address] Yuniel White Md 01/26/2025 External Device Data STL ABSTRACTION Provider, Abstract 01/26/2025 External Device Data STL ABSTRACTION Provider, Abstract 01/25/2025 External Device Data STL ABSTRACTION Provider, Abstract 01/25/2025 Orders Only [facility] [address] [place] [address] Tacho Rodgers MD 01/24/2025 1:00 PM CDT Office Visit [facility] [address] [place] [address] Tacho Rodgers MD Arthritis of left knee (Primary Dx) 01/24/2025 12:30 PM CDT Ancillary Procedure [facility] [address] [place] [address] Tacho Rodgers MD Primary osteoarthritis of left knee 01/22/2025 Orders Only [facility] [address] [place] [phone] Tacho Rodgers MD Primary osteoarthritis of left knee (Primary Dx) from Last 3 Months Family History Medical History Relation Name Comments Heart Disease Daughter Ablation Relation Name Status Comments Daughter Social History Tobacco Use Types Packs/Day Years Used Date Smoking Tobacco: Former Cigarettes 0.5 25 1 965 - 1989 Smokeless Tobacco: Never Alcohol Use Standard Drinks/Week Comments Not Currently 0 (1 standard drink = 0.6 oz pur e alcohol) Feeling Safe Answer Date Recorded Are you in a relationship wi th someone who hurts you emotionally and/or physically? No 03/15/2025 Food Insecurity Answer Date Recorded Patient needs follow up regardin 11/04/2024 Transportation Needs Answer Date Record ed Patient needs follow up regardin 11/04/2024 Housing Stability Answer Date Recorded Social/Environmental Concerns No concerns Utility Needs Answer Date Recorded Patient needs follow up regardin 11/04/2024 Comments No Sex and Gender Information Value Date Recorded Sex Assigned at Not on file Legal Sex Female 9:02 AM CDT Gender Identity Not on file Sexual Orientation Not on file Last Filed Vital Signs Vital Sign Reading Time Taken Comments Blood Pressure 133/67 03/16/2025 2:15 PM CDT Pulse 70 03/16/2025 2:15 PM CDT Temperature 36.6 C (97.8 F) 03/16/2025 2:15 PM CDT Respiratory Rate 16 03/16/2025 4:30 AM CDT Oxygen Saturation 96% 03/16/2025 2:15 PM CDT Inhaled Oxygen Concentration - - Weight 70.3 kg (155 lb) 03/15/2025 8:56 AM CDT Height 172.7 cm (5' 8 ) 03/15/2025 8:56 AM CDT Body Mass Index 23.57 03/15/2025 8:56 AM CDT Plan of Treatment Upcoming Encounters Date Type Department Care Team (Late st Contact Info) Description 04/12/2025 10:20 AM CDT Office Visit [facility] [address] [place] [address] Saira Garza PA [address] [place] [phone] 09/06/2025 2:20 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 Office Visit [facility] [address] [place] [address] Saira Garza PA [address] [place] [address] Health Maintenance Due Date Last Done Comments DTAP/TDAP/TD VACCINES (1 - Tdap) 1966 PNEUMOCOCCAL VACCINE 50+ YEA RS (1 of 1 - PCV) 1997 ZOSTER VACCINE (1 of 2) 1997 OSTEOPOROSIS SCREENING 2012 RSV VACCINE (60+ or ) (1 - 1-dose 75+ series) 2022 INFLUENZA VACCINE (#1) 2025 COVID-19 Vaccine (3 - season) 2025, 12/25/2020 Medical Devices Implanted Type Area Polisher And Buffer Device Identifier Shelf Expiration Date Model / Serial / Lot Comp Fem Attune Poro Cr Sz 6n Rt Cmntlss 1504-01-226 - [id number] Implanted:Qty: 1 on 09/07/2024 by Tacho Rodgers MD at [facility] Knee Right: Knee [employer] [id number] 01/10/2034 1504-01-226 / / [id number] Baseplate Tib Attune Fxd Bearing Sz5 1506-21-005 - [id number] Implanted:Qty: 1 on 09/07/2024 by Tacho Rodgers MD at [facility] Knee Right: Knee [employer] [id number] 12/11/2032 1506-21-005 / / [id number] Baseplate Tib Attune Fxd Bearing Sz 6 [id number] - [id number] Implanted:Qty: 1 on 03/15/2025 by Tacho Rodgers MD at [facility] Knee Left: Knee [employer] [id number] 06/12/2032 [id number] / / [id number] Comp Fem Attune Poro Cr Sz 6n Lt Nrw Cmntlss 1504-01-126 - [id number] Implanted:Qty: 1 on 03/15/2025 by Tacho Rodgers MD at [facility] Knee Left: Knee [employer] [id number] 11/10/2034 [id number] / / [id number] Insert Tib Attune Aox Fb Medial Stblzd Sz6 7mm Lt 1518-20-607 - [id number] Implanted:Qty: 1 on 03/15/2025 by Tacho Rodgers MD at [facility] Knee Left: Knee [employer] [id number] 01/10/2033 1518-20-607 / / [id number] Ins Tib Attune 6x6mm Knee Implanted:Qty: 1 on 09/07/2024 by Tacho Rodgers MD at [facility] Right: Knee [id number] 08/13/2030 [id number] / / [id number] Procedures Procedure Name Priority Date/Time Associated Diagnosis Comments TELEMETRY REPORT 03/18/2025 3:29 PM CDT BASIC METABOLIC PANEL Routine 03/16/2025 4:37 AM CDT CBC WITH DIFFERENTIAL Routine 03/16/2025 4:37 AM CDT POC GLUCOSE Routine 03/15/2025 3:15 PM CDT RT ASSESS AND TREAT Routine 03/15/2025 2 :36 PM CDT XR KNEE 1 OR 2 VW LEFT Routine 03/15/2025 1:29 PM CDT POC GLUCOSE Routine 03/15/2025 1:11 PM CDT VA ANESTHESIA BLOCK PB PLACEHOLDER CHARGE Routine 03/15/2025 12:19 PM CDT VA ARTHRP KNE CONDYLE&PLATU MEDIAL&LAT COMPARTMENTS 03/15/2025 11:54 AM CDT Osteoarthritis of left knee, unspecified osteoarthritis type XR CHEST PA OR AP 1 VW Routine 02/22/2025 3:28 PM CDT Preoperative testing COMPREHENSIVE METABOLIC PANEL Routine 02/22/2025 3:20 PM CDT CBC WITH DIFFERENTIAL Routine 02/22/2025 3:20 PM CDT EKG 12-LEAD Routine 02/22/2025 3:16 PM CDT XR KNEE 4+ VW LEFT Routine 01/24/2025 12 :41 PM CDT Primary osteoarthritis of left knee from Last 3 Months Results * TELEMETRY REPORT (03/18/2025 3:29 PM CDT) us Provider Scanning ECG ORDERABLES Final Result * (ABNORMAL) CBC WITH DIFFERENTIAL (03/16/2025 4:37 AM CDT) Only the most recent of2 resultswithin the time period is included. WBC 19.3(H) 4.8 - 10.8 K/uL 03/16/2025 6:22 AM CDT [facility] RBC 3.73(L) 4.20 - 5.40 M/uL 03/16/2025 6:22 AM CDT [facility] HEMOGLOBIN 10.6(L) 12.0 - 16.0 g/dL 03/16/2025 6:22 AM CDT [facility] HEMATOCRIT 33.8(L) 36.0 - 46.0 % 03/16/2025 6:22 AM CDT [facility] MCV 90.6 84.0 - 103.0 fL 03/16/2025 6:22 AM CDT [facility] MCH 28.4(L) 31.0 - 37.0 pg 03/16/2025 6:22 AM CDT [facility] MCHC 31.4 30.0 - 35.0 g/dL 03/16/2025 6:22 AM CDT [facility] PLATELETS 143 140 - 440 K/uL 03/16/2025 6:22 AM CDT [facility] MPV 14.3(H) 8.9 - 12.8 fL 03/16/2025 6:22 AM CDT [facility] RDW 13.9 11.0 - 14.5 % 03/16/2025 6:22 AM CDT [facility] RDW-STDEV 46.4 37.0 - 54.0 fL 03/16/2025 6:22 AM CDT [facility] NEUTROPHILS 87(H) 42 - 75 % 03/16/2025 6:22 AM CDT [facility] LYMPHOCYTES 4(L) 24 - 44 % 03/16/2025 6:22 AM CDT [facility] MONOCYTES 8 2 - 10 % 03/16/2025 6:22 AM CDT [facility] EOSINOPHILS 0 0 - 7 % 03/16/2025 6:22 AM CDT [facility] BASOPHILS 0 0 - 1 % 03/16/2025 6:22 AM CDT [facility] IMMATURE GRANULOCYTES 0 0 - 2 % 03/16/2025 6:22 AM CDT [facility] NEUTROPHIL ABSOLUTE 16.79(H) 2.00 - 8.00 K/uL 03/16/2025 6:22 AM CDT [facility] LYMPHOCYTE ABSOLUTE 0.77(L) 1.20 - 4.00 K/uL 03/16/2025 6:22 AM CDT [facility] MONOCYTE ABSOLUTE 1.63(H) 0.10 - 0.60 K/uL 03/16/2025 6:22 AM CDT [facility] EOSINOPHIL ABSOLUTE 0.01 0.00 - 0.70 K/uL 03/16/2025 6:22 AM CDT [facility] BASOPHILS ABSOLUTE 0.03 0.00 - 0.20 K/uL 03/16/2025 6:22 AM CDT [facility] IMMATURE GRANULOCYTES ABSOLUTE 0.06 0.00 - 0.10 K/uL 03/16/2025 6:22 AM T [facility] SMEAR REVIEWED: NA - Not Applicable 03/16/2025 6:22 AM CDT [facility] Blood Venipuncture / Unknown 03/16/2025 4:37 AM CDT 03/16/2025 5:55 AM CDT us [facility] HEMATOLOGY ORDERABLES Final Re sult [facility] CLIA #[id number] [facility] [place] [address] * (ABNORMAL) BASIC METABOLIC PANEL (03/16/2025 4:37 AM CDT) SODIUM 142 136 - 145 mmol/L 03/16/2025 6:30 AM CDT [facility] POTASSIUM 4.1 3.4 - 4.5 mmol/L 03/16/2025 6:30 AM CDT [facility] CHLORIDE 103 98 - 107 mmol/L 03/16/2025 6:30 AM [facility] CO2 22 22 - 29 mmol/L 03/16/2025 6:30 AM [facility] CALCIUM 8.9 8.6 - 10.0 mg/dL 03/16/2025 6:30 AM [facility] BUN 16 8 - 23 mg/dL 03/16/2025 6:30 AM [facility] CREATININE 0.60 0.51 - 0.95 mg/dL 03/16/2025 6:30 AM [facility] Comment:The GFR result is no t clinically significant on patients <18 or >70 years of age. GLUCOSE 134(H) 74 - 99 mg/dL 03/16/2025 6:30 AM [facility] GFR >60 mL/min/1.7 3 sq meter 03/16/2025 6:30 AM [facility] Comment:eGFR calculated with 2020 CKD-EPI equation. Vegetarian diet, extremely high or low muscle mass, and may affect results. Cystatin C with Glomerular Filtration Rate is a suitable alternative for these patients. ANION GAP 17 9 - 20 mmol/L 03/16/2025 6:30 AM [facility] Blood Venipuncture / Unknown 03/16/2025 4:37 AM CDT 03/16/2025 5:55 AM CDT us [facility] CHEMISTRY ORDERABLES Final Res ult [facility] CLIA #[id number] [address] [place] [address] * (ABNORMAL) POC GLUCOSE (03/15/2025 3:15 PM CDT) Only the most recent of2 resultswithin the time period is included. GLUCOSE POC 140(H) 74 - 99 mg/dL 03/15/2025 3:15 PM T [facility] SPECIMEN SOURCE, GLUCOSE POC Whole Blood 03/15/2025 3:15 PM CDT [facility] Blood, whole 03/15/2025 3:15 PM CDT 03/15/2025 3:24 PM CDT Tacho Rodgers MD POINT OF CARE TESTING F inal Result [facility] CLIA #[id number] [address] [place] [address] * XR KNEE 1 OR 2 VW LEFT (03/15/2025 1:29 PM CDT) Anatomical Region Laterality Modality Lower Extremity Computed Radiogr aphy 03/15/2025 1:29 PM CDT Impressions 03/15/2025 3:34 PM CDT IMPRESSION: Status post knee arthroplasty without apparent complication. Narrative 03/15/2025 3:34 PM CDT Exam: XR KNEE 1 OR 2 VW LEFT Date/Time of Exam: 03/15/2025 1:29 PM Reason For Exam: Other - Please see comments. Diagnosis: Primary osteoarthritis of left knee. Comparison: 01/14/2025. Findings: There are recent postsurgical changes relating to knee arthroplasty. The components appear intact. There is no acute osseous abnormality. Procedure Note Baldo Burks, - 03/15/2025 Exam: XR KNEE 1 OR 2 VW LEFT Date/Time of Exam: 03/15/2025 1:29 PM Reason For Exam: Other - Please see comments. Diagnosis: Primary osteoarthritis of left knee. Comparison: 01/14/2025. Findings: There are recent postsurgical changes relating to knee arthroplasty. The components appear intact. There is no acute osseous abnormality. IMPRESSION: Status post knee arthroplasty without apparent complication. [facility] DIAGNOSTIC IMAGING ORDERABLES Final Result * VA ANESTHESIA BLOCK PB PLACEHOLDER CHARGE (03/15/2025 12:19 PM CDT) Narrative Kalpana Perdomo CRNA - 03/15/2025 12:19 PM CDT Kalpana Perdomo CRNA 03/15/2025 12:19 PM Spinal Block Patient location during procedure: OR Start time: 03/15/2025 11:56 AM End time: 03/15/2025 12:01 PM Reason for block: at surgeon's request and primary anesthetic Staffing Performed: SOLOMON/ELOY Authorized by: Zack Ding MD Performed by: Kalpana Perdomo CRNA Preanesthetic Checklist Completed: patient identified, IV checked, site marked, risks and benefits discussed, surgical consent, monitors and equipment checked, pre-op evaluation and timeout performed Spinal Hand hygiene performed prior to procedure Patient was prepped and draped in usual sterile fashion Time out performed Mask worn Patient position: Sitting Prep: ChloraPrep Local Anesthetic: Lidocaine 1% without epinephrine Patient monitoring: Continuous pulse oximetry, Heart rate, Non-invasive blood pressure and EKG Approach: Midline Location: L3-4 Injection Technique: Single-shot Ali Chuk Identification: palpation technique Number of Attempts: 2 Spinal Needle Needle type: Pencil-tip Needle gauge: 25 G Needle length: 10 cmCSF visualized CSF Action Taken: 1.2ml 0.75% bupiv/dex given IT Assessment No paresthesia Outcome: Complete Zack Ding MD PROCEDURE/MINOR SURGICAL ORDERAB LES Final Result * XR CHEST PA OR AP 1 VW (02/22/2025 3:28 PM CDT) Anatomical Region Laterality Modality Chest Computed Radiogr aphy 02/22/2025 3:28 PM CDT Impressions 02/23/2025 9:05 AM CDT Impression: No evidence of infiltrates. Narrative 02/23/2025 9:05 AM CDT Exam: XR CHEST PA OR AP 1 VW Date/Time of Exam: 02/22/2025 3:28 PM Reason For Exam: See Diagnosis Diagnosis: Preoperative testing The heart size is normal. Mild scarring is present in the right midlung. The left lung is clear. Calcified mediastinal lymph nodes are present. No pneumothorax is seen. Procedure Note Giovani Nava MD - 02/23/2025 Exam: XR CHEST PA OR AP 1 VW Date/Time of Exam: 02/22/2025 3:28 PM Reason For Exam: See Diagnosis Diagnosis: Preoperative testing The heart size is normal. Mild scarring is present in the right midlung. The left lung is clear. Calcified mediastinal lymph nodes are present. No pneumothorax is seen. Impression: No evidence of infiltrates. us Celso Tate MD DIAGNOSTIC IMAGING ORDERABLES F inal Result * (ABNORMAL) COMPREHENSIVE METABOLIC PANEL (02/22/2025 3:20 PM CDT) SODIUM 135(L) 136 - 145 mmol/L 02/22/2025 3:50 PM CDT [facility] POTASSIUM 3.9 3.4 - 4.5 mmol/L 02/22/2025 3:50 PM CDT [facility] CHLORIDE 99 98 - 107 mmol/L 02/22/2025 3:50 PM CDT [facility] CO2 24 22 - 29 mmol/L 02/22/2025 3:50 PM CDT [facility] CALCIUM 9.5 8.6 - 10.0 mg/dL 02/22/2025 3:50 PM CDT [facility] BUN 13 8 - 23 mg/dL 02/22/2025 3:50 PM CDT [facility] CREATININE 0.67 0.51 - 0.95 mg/dL 02/22/2025 3:50 PM CDT [facility] Comment:The GFR result is no t clinically significant on patients <18 or >70 years of age. GLUCOSE 93 74 - 99 mg/dL 02/22/2025 3:50 PM CDT [facility] Comment:Reference range appl ies to fasting patients only. TOTAL PROTEIN 7.2 6.6 - 8.7 g/dL 02/22/2025 3:50 PM CDT [facility] ALBUMIN 4.3 4.0 - 4.9 g/dL 02/22/2025 3:50 PM CDT [facility] BILIRUBIN TOTAL 0.9 0.0 - 1.0 mg/dL 02/22/2025 3:50 PM CDT [facility] ALKALINE PHOSPHATASE 108(H) 35 - 104 U/L 02/22/2025 3:50 PM CDT [facility] AST 17 5 - 32 U/L 02/22/2025 3:50 PM CDT [facility] ALT 10 5 - 33 U/L 02/22/2025 3:50 PM CDT [facility] GFR >60 mL/min/1.7 3 sq meter 02/22/2025 3:50 PM CDT [facility] Comment:eGFR calculated with 2020 CKD-EPI equation. Vegetarian diet, extremely high or low muscle mass, and may affect results. Cystatin C with Glomerular Filtration Rate is a suitable alternative for these patients. ANION GAP 12 9 - 20 mmol/L 02/22/2025 3:50 PM CDT [facility] Blood Venipuncture / Unknown 02/22/2025 3:20 PM CDT 02/22/2025 3:25 PM CDT us Celso Tate MD CHEMISTRY ORDERABLES Final Resu lt [facility] CLIA #[id number] [address] [place] [address] * EKG 12-LEAD (02/22/2025 3:16 PM CDT) 02/22/2025 3:16 PM CDT Narrative INTERFACE SYSTEM - 02/22/2025 8:59 PM CDT [facility] [address] [facility] [place] [address] Test Date: 2025-02-22 Pat Name: AMARIS GERBER Department: 50 Room: Gender: Female Chemical Mixer: nancy : 1945 Requested By: Order Number: [id number] José Miguel MD: Serg Nicolas Measurements Intervals [place] Rate: 71 P: 46 VA: 176 QRS: -36 QRSD: 102 T: 46 QT: 386 QTc: 419 Interpretive Statements Sinus rhythm with frequent premature ventricular complexes Left axis deviation Moderate voltage criteria for LVH, may be normal variant ( R in aVL, [place] product ) Abnormal ECG Electronically Signed On 02-22-2025 20:59:29 CDT by Serg Nicolas Procedure Note Serg Nicolas MD - 02/22/[address] [address] Test Date: 2025-02-22 Pat Name: AMARIS GERBER Department: 50 Room: Gender: Female Chemical Mixer: enzog : 1945 Requested By: Order Number: [id number] Reading MD: Serg Nicolas Measurements Intervals [place] Rate: 71 P: 46 VA: 176 QRS: -36 QRSD: 102 T: 46 QT: 386 QTc: 419 Interpretive Statements Sinus rhythm with frequent premature ventricular complexes Left axis deviation Moderate voltage criteria for LVH, may be normal variant ( R in aVL, [place] product ) Abnormal ECG Electronically Signed On 02-22-2025 20:59:29 CDT by Serg Nicolas us Celso Tate MD ECG ORDERABLES Final Result Performing Organization Address City/State/[facility] Co de Phone Number INTERFACE SYSTEM Refer to clinic/hospital department * XR KNEE 4+ VW LEFT (01/24/2025 12:41 PM CDT) Anatomical Region Laterality Modality Lower Extremity Computed Radiogr aphy Narrative 01/31/2025 8:59 AM CDT Left knee AP, lateral, PA 45 degree flexion, and sunrise views show severe knee arthritis:Medial, Lateral, and Patellofemoral joint space narrowing, subchondral sclerosis, and periarticular osteophyte formation us Tacho Rodgers MD DIAGNOSTIC IMAGING ORDLisa KATE Final Result from Last [address] [place] [address] MEDICARE PART A AND B FOR LIFE [address] [place] [address] RX [facility]
[2025-04-01 08:19] VITALS: BP 119/95; PULSE 94; RESP 17; TEMP 37.1; O2SAT 98; BMI 22.8
--- NOTE | 2025-04-01 08:28 | ECG_ITS ---
[facility] Date: 2025-04-01 Pat Name: Amaris Romero Department: Room: Gender: Female Pedigree Researcher: : 1945 Requested By: Yaima Cotton Order Number: [id number] José Miguel MD: Ciaran Casillas M.D. Measurements Intervals [place] Rate: 84 P: 65 [place]: 170 QRS: -10 QRSD: 110 T: 67 QT: 367 QTc: 436 Interpretive Statements SINUS RHYTHM WITH FREQUENT VENTRICULAR PREMATURE COMPLEXES WITH FREQUENT SUPRAVENTRICULAR PREMATURE COMPLEXES Compared to ECG 12/18/2024 23:24:03 Incomplete right bundle-branch block no longer present Left ventricular hypertrophy no longer present ST (T wave) deviation no longer present Myocardial infarct finding no longer present Electronically Signed On 04-02-2025 13:07:43 CDT by Ciaran Casillas M.D. [email or web address]
--- NOTE | 2025-04-01 08:30 | ED_ITS ---
HPI - General Adult 2 General: Chief complaint: General Medical Stated complaint: Medication withdrawn Time Seen by Provider: 04/01/25 08:12 Source: patient Mode of arrival: ambulatory Limitations: no limitations History of Present Illness: 80-year-old female who states she has be en taking clonazepam for years states she recently started taking hydrocodone 1 week ago and states she did not stop her clonazepam states she started taking it again 2 days ago but is been feeling extremely anxious. Patient is extremely anxious here states she has been having diarrhea dry mouth and just feeling very anxious she denies any chest pain denies any vomiting Associated symptoms: Deny chest pain, dyspnea, nausea, rash or vomiting Related Data Previous Rx's ?Medication ?Instructions ?Recorded diclofenac sodium 1 % topical gel 2 g topical QID #100 grams 10/14/23 conjugated estrogens 0.625 mg/gram 0.3125 mg vaginal . Twice a week 11/18/23 vaginal cream (Premarin) #30 grams dicyclomine 10 mg capsule 10 mg PO TID PRN diarrhea #1 80 caps 11/18/23 triamcinolone acetonide 0.1 % 1 applic topical DAILY # 30 grams 11/18/23 topical cream cyclobenzaprine 10 mg tablet 10 mg PO TID PRN muscle s pasm 14 01/02/24 days #42 tabs venlafaxine 75 mg capsule,extended See Rx Instructions .Route 08/03/24 release 24 hr .COMPLEX #90 caps clonidine HCl 0.1 mg tablet 0.1 mg PO Q6H PRN for bloo d 12/28/24 pressure greater than 160/110 #30 tabs atenolol 25 mg tablet 25 mg PO DAILY high blood pr essure 03/04/25 #90 tabs losartan 50 mg tablet 50 mg PO DAILY #90 tabs 02/12 09/07 clonazepam 1 mg tablet 1 mg PO TID PRN Anxiety #90 tabs 03/28/25 Allergies Allergy/AdvReac Type Severity Reaction Status Date / Time Sulfa (Sulfonamide Allergy hives Verified 12/29/24 10:29 Antibiotics) Review of Systems 2 Const: Denies: fever(s), chills, body aches or change in appetite ENMT: Denies: throat pain or dental pain Card: Denies: chest pain Resp: Denies: dyspnea GI: Reports: diarrhea; Denies: abdominal pain, nausea or vomiting Musc: Denies: neck pain or back pain Skin/Breast: Denies: rash PFSH ED 2 PFSH: Medical History (Updated 04/01/25 @ 09:07 by Yaima Cotton MD) Anxiety and depression Weight gain Hx of basal cell carcinoma Macular degeneration Burning mouth syndrome Surgical History (Updated 03/28/25 @ 17:59 by Abdoul Robles MD) History of left knee replacement 03/2025 - Dr Vishal Shannon Hx of cataract surgery History of lobectomy of lung Right upper lobe removed - [facility] - 03/2023 H/O knee surgery Right knee replacement - 08/2024 Hx laparoscopic cholecystectomy History of hysterectomy Family History Father Cancer Stomach Alcoholic Grandmother Cancer Colon Cancer Social History Smoking and tobacco/nicotine status: never used tobacco/nicotine Quit status (tobacco/nicotine): has quit using Year quit tobacco: 1989 Former quit date comment: 5 pack years Alcohol intake: never Physical Exam 2 Const: COMMON NORMALS: no acute distress, patient oriented x3 and healthy appearing HENMT: COMMON NORMALS: normocephalic and atraumatic HEAD & SCALP: n ormocephalic and atraumatic Eye: COMMON NORMALS: conjunctivae normal CONJUNCTIVA: Yes conjunctivae normal Neck/C-Spine: COMMON NORMALS: full ROM and supple Chest: COMMONS NORMALS: normal inspection of the chest Resp: COMMON NORMALS: normal respiratory effort, No retractions, No use of accessory muscles and clear to auscultation bilaterally AUSCULTATION: clear to auscultation bilaterally Cardio: COMMON NORMALS: regular rate, regular rhythm and No murmurs present (Cardio) RATE: regular rate RHYTHM: regular rhythm GI: COMMON NORMALS: Normal to inspection, nondistended, normoactive bowel sounds present, Soft to palpation, non-tender and no masses PALPATION: Yes Soft to palpation Extremity: COMMON NORMALS: normal to inspection and full ROM Neuro: COMMON NORMALS: patient oriented x3, moves all extremities and no focal motor deficits Psych: COMMON NORMALS: mental status grossly normal, Normal thought process present and cooperative MOOD & AFFECT: Yes anxious THOUGHT PROCESS: Normal thought process present Skin: COMMON NORMALS: no rashes or lesions noted and no wounds GENERAL SKIN EXAM: no rashes or lesions noted Course 2 Vital Signs: Vital signs: Vital Signs Temperature 98.7 F 04/01/25 08:19 Pulse Rate 94 04/01/25 08:19 Respiratory Rate 17 04/01/25 08:19 Blood Pressure 119/95 04/01/25 08:19 Pulse Oximetry 98 04/01/25 08:19 Oxygen Delivery Me thod Room Air 04/01/25 08:19 MDM - General Adult Medical Decision Making Amaris presents here with diarrhea feeling extremely anxious had not been taking her clonazepam. Patient is otherwise well-appearing here she has no signs of any cardiac issues or pulmonary embolism her abdominal exam here is benign. Did review her blood work showed no signs of electrolyte abnormalities or anemia. Her EKG here was normal as well. She feels much improved here after Ativan is likely anxiety she is stable for discharge she is to follow-up with PCP take her meds as prescribed no new meds were prescribed here. Medical Records I reviewed the patient's medical records. Lab Data I reviewed the patient's lab results. 04/01/25 08:28 04/01/25 08:28 Laboratory Results WBC 8.08 10^3/uL (3.29-11.43) 04/01/25 08:28 RBC 4.05 10^6/uL (3.85-5.65) 04/01/25 08:28 Hgb 10.80 g/dL (11.27-16.99) L 04/01/25 08:28 Hct 35.7 % (36-47) L 04/01/25 08:28 MCV 88.1 fl (85-98) 04/01/25 08:28 MCH 26.7 pg (27-33) L 04/01/25 08:28 MCHC 30.3 g/dL (30-55) 04/01/25 08:28 RDW 13.6 % (12.1-15.1) 04/01/25 08:28 Plt Count 250 10^3/cmm (157-399) 04/01/25 08:28 MPV 11.6 fL (7.4-10.4) H 04/01/25 08:28 Neut % (Auto) 74.0 % 04/01/25 08:28 Lymph % (Auto) 14.9 % 04/01/25 08:28 [place] % (Auto) 10.5 % 04/01/25 08:28 Eos % (Auto) 0.1 % 04/01/25 08:28 Baso % (Auto) 0.0 % 04/01/25 08:28 Neut # (Auto) 5.98 10^3/uL (1.8-7.7) 04/01/25 08:28 Lymph # (Auto) 1.2 10^3/uL (0.8-4.8) 04/01/25 08:28 [place] # (Auto) 0.9 10^3/uL (0.2-0.9) 04/01/25 08:28 Eos # (Auto) 0.0 10^3/uL (0.0-0.8) 04/01/25 08: Baso # (Auto) 0.0 10^3/uL (0.0-0.1) 04/01/25 08:28 Nucleated RBC % (auto) 0 % 04/01/25 08: Nucleated RBCs # 0.0 /100WBC 04/01/25 08:28 Sodium 139 mmol/L (136-145) 04/01/25 08:28 Potassium 3.8 mmol/L (3.5-5.1) 04/01/25 08:28 Chloride 102 mmol/L (98-107) 04/01/25 08:28 Carbon Dioxide 23 mmol/L (22-29) 04/01/25 08:28 Anion Gap 17.8 (5-19) 04/01/25 08:28 BUN 7 mg/dL (8-23) L 04/01/25 08:28 Creatinine 0.6 mg/dL (0.5-0.9) 04/01/25 08:28 GFR Calculation Not Reportable 04/01/25 08:28 Glucose 119 mg/dL (65-115) H 04/01/25 08:28 Calculated Osmolality 287 mOsm/kg (285-295) 04/01/25 08:28 Calcium 9.6 mg/dL (8.5-10.5) 04/01/25 08:28 Total Bilirubin 0.8 mg/dL (0.15-1.2) 04/01/25 08:28 AST 16 U/L (0-32) 04/01/25 08:28 ALT 24 U/L (0-33) 04/01/25 08:28 Alkaline Phosphatase 294 U/L (35-105) H 04/01/25 08:28 Total Protein 7.3 g/dL (6.6-8.7) 04/01/25 08:28 Albumin 4.0 g/dL (3.5-5.2) 04/01/25 08:28 Globulin 3.3 g/dL (1.3-4.6) 04/01/25 08:28 All radiology interpretation(s) finalized by discharge EKG Data EKG 1: I personally reviewed and interpreted this EKG as follows: EKG interpretation date: 04/01/25 EKG interpretation time: 08:28 Interpretation: nsr hr [address] elevation qrs 110 qtc 409 Discharge Plan Discharge Patient Disposition: Home Clinical Impression: Anxiety Condition: Stable Prescriptions: No Action clonidine HCl 0.1 mg tablet 0.1 mg PO Q6H PRN (Reason: for blood pressure greater than 160/110) Qty: 30 0RF diclofenac sodium 1 % gel 2 g topical QID Qty: 100 3RF Rx Instructions: apply to single elbow, wrist or hand; for hand includes palm/fingers/back of hand Premarin 0.625 mg/gram cream 0.3125 mg vaginal .Twice a week Qty: 30 3RF Rx Instructions: off 5 days; repeat cycle dicyclomine 10 mg capsule 10 mg PO TID PRN (Reason: diarrhea) Qty: 180 3RF triamcinolone acetonide 0.1 % cream 1 applic topical DAILY Qty: 30 6RF cyclobenzaprine 10 mg tablet 10 mg PO TID PRN (Reason: muscle spasm) 14 Days Qty: 42 0RF venlafaxine 75 mg capsule,extended release 24hr See Rx Instructions .ROUTE .COMPLEX Qty: 90 3RF Dose Instruction: TAKE 1 CAPSULE DAILY Rx Instructions: TAKE 1 CAPSULE DAILY losartan 50 mg tablet 50 mg PO DAILY Qty: 90 3RF atenolol 25 mg tablet 25 mg PO DAILY Qty: 90 3RF clonazepam 1 mg tablet 1 mg PO TID PRN (Reason: Anxiety) Qty: 90 3RF Discharge Orders: Discharge ED (Routine); Ordered 04/01/25 Ordered By: Yaima Cotton Referrals: Abdoul Robles MD [Primary Care Provider, Family Practice] - 4-7 days Discharge Diet: Advance as tolerated Discharge Activity: Resume usual activity Patient Instructions: Anxiety (ED) Print Language: [place] Coding Level of Care Code ED Production Supv for [place]
[2025-04-01 08:32] LABS: Hematocrit 35.7 % (36-47); Hemoglobin 10.80 g/dL (11.27-16.99); Mean Corpuscular HGB Conc 30.3 g/dL (30-55); Mean Corpuscular Hemoglobin 26.7 pg (27-33); Mean Corpuscular Volume 88.1 fl (85-98); Nucleated Red Blood Cells % 0 %; Platelet Count 250 10^3/cmm (157-399); Red Blood Count 4.05 10^6/uL (3.85-5.65); White Blood Count 8.08 10^3/uL (3.29-11.43)
[2025-04-01] MEDS: LORazepam 1 MG/0.5 ML injection IVP (08:38)
[2025-04-01 08:50] LABS: Alanine Aminotransferase 24 U/L (0-33); Albumin Level 4.0 g/dL (3.5-5.2); Alkaline Phosphatase 294 U/L (35-105); Anion Gap 17.8 (5-19); Aspartate Amino Transferase 16 U/L (0-32); Blood Urea Nitrogen 7 mg/dL (8-23); Calcium 9.6 mg/dL (8.5-10.5); Carbon Dioxide 23 mmol/L (22-29); Chloride 102 mmol/L (98-107); Creatinine Clr Calc Pharmacy 59.9788; Globulin 3.3 g/dL (1.3-4.6); Glucose 119 mg/dL (65-115); Osmolality Calculated 287 mOsm/kg (285-295); Potassium 3.8 mmol/L (3.5-5.1); Sodium 139 mmol/L (136-145); Total Protein 7.3 g/dL (6.6-8.7)
[2025-04-01 09:06] VITALS: BP 119/97; PULSE 84; O2SAT 98
[2025-04-01 09:14] VITALS: BP 119/97; PULSE 86; O2SAT 99
== END 2025-04-01 09:15 | disposition home or self-care (01) ==
PROVIDERS: Emergency Provider Emergency Medicine; PCP Family Medicine
DX: F41.9 Anxiety disorder, unspecified (principal); Z87.891 Personal history of nicotine dependence; Z85.828 Personal history of other malignant neoplasm of skin
CPT/HCPCS: 36415; 80053; 85025; 93005; 96374; 99284; J2060

== ENCOUNTER 2025-04-08 17:49 | Emergency (ER) | payer MEDICARE, OTHER, SELFPAY ==
--- OUTSIDE RECORDS SUMMARY | 2025-04-08 17:53 | XMS_ITS | Clinical Summary ---
Author Organization [facility] Address [address] [place] [address] Care Team Providers Care Television Newscast Director Name Role Phone Unavailable Primary Care Provider [...] Type Department Care Team Description 03/24/2025 Refill [facility] [address] [place] [address] Tacho Rodgers MD Primary osteoarthritis of left knee 03/21/2025 [facility] [address] [place] [address] Tacho Rodgers MD Information 03/21/2025 Telephone [facility] Case Management [address] [place] [phone] Tacho Rodgers MD Hospital Follow Up 03/19/2025 [facility] Case Management [address] [place] [address] Tacho Rodgers MD Hospital Follow Up (Day 3) 03/15/2025 11:54 AM CDT - 03/15/2025 1:23 PM CDT Surgery [facility] Operating Room [address] [place] [address] Tacho Rodgers MD KNEE ARTHROPLASTY TOTAL REPLACEMENT 03/15/2025 11:47 AM CDT Anesthesia Event [facility] Operating Room [address] [place] [address] Zack Ding MD Crabtree, Chris-Anne, CRNA 03/15/2025 8:45 AM CDT - 03/16/2025 2:21 PM CDT Hospital Encounter [facility] Inpatient [address] [place] [address] Tacho Rodgers MD Status post total left knee replacement Discharge Disposition: Home or Self Care 03/15/2025 External Device Data STL ABSTRACTION Provider, Abstract 2025 External Device Data Initial Department [address] [place] [address] Dr ROBERTS: [place] [address] Yuniel White Md 03/02/2025 External Device Data STL ABSTRACTION Provider, Abstract 02/22/2025 3:12 PM CDT - 02/22/2025 11:59 PM CDT Hospital Encounter [facility] Imaging [facility] [address] [place] [address] Celso Tate MD Discharge Disposition: Home or Self Care 02/22/2025 1:53 PM CDT - 02/22/2025 11:59 PM CDT Hospital Encounter [facility] Pre Admission [facility] [address] [place] [address] Tacho Rodgers MD Discharge Disposition: Home or Self Care 02/22/2025 Travel 02/16/2025 External Device Data Initial Department [address] [place] [address] Dr ROBERTS: [place] [address] Yuniel White Md 01/26/2025 External Device Data STL ABSTRACTION Provider, Abstract 01/26/2025 External Device Data STL ABSTRACTION Provider, Abstract 01/25/2025 External Device Data STL ABSTRACTION Provider, Abstract 01/25/2025 Orders Only [facility] [address] [place] [address] Tacho Rodgers MD 01/24/2025 1:00 PM CDT Office Visit [facility] [address] [place] [address] Tacho Rodgers MD Arthritis of left knee (Primary Dx) 01/24/2025 12:30 PM CDT Ancillary Procedure [facility] [address] [place] [address] Tacho Rodgers MD Primary osteoarthritis of left knee 01/22/2025 Orders Only [facility] [address] [place] [address] Tacho Rodgers MD Primary osteoarthritis of left [...] Care Team (Late st Contact Info) Description 04/13/2025 2:00 PM CDT Office Visit [facility] [address] [place] [address] Saira Garza PA [address] [place] [phone] 09/06/2025 2:20 PM JAILOR Office Visit [facility] [address] [place] [phone] Saira Garza PA [address] [place] [address] Health Maintenance Due Date Last Done Comments DTAP/TDAP/TD VACCINES (1 - Tdap) 1966 PNEUMOCOCCAL VACCINE 50+ YEA RS (1 of 1 - PCV) 1997 ZOSTER VACCINE (1 of 2) 1997 OSTEOPOROSIS SCREENING 2012 RSV VACCINE (60+ or ) (1 - 1-dose 75+ series) 2022 INFLUENZA VACCINE (#1) 2025 COVID-19 Vaccine (3 - season) 2025, 12/25/2020 Medical Devices Implanted Type Area Bunch Maker Device Identifier Shelf Expiration Date Model / Serial / Lot Comp Fem Attune Poro Cr Sz 6n Rt Cmntlss 1504-01-226 - [id number] Implanted:Qty: 1 on 09/07/2024 by Tacho Rodgers MD at [facility] Knee Right: Knee [employer] [id number] 01/10/2034 1504-01-226 / / [id number] Baseplate Tib Attune Fxd Bearing Sz5 1506-21-005 - [id number] Implanted:Qty: 1 on 09/07/2024 by Tacho Rodgers MD at [facility] Knee Right: Knee [employer] [id number] 12/11/2032 1506-21-005 / / [id number] Baseplate Tib Attune Fxd Bearing Sz 6 [id number] - [id number] Implanted:Qty: 1 on 03/15/2025 by Tacho Rodgers MD at [facility] Knee Left: Knee [employer] [id number] 06/12/2032 [id number] / / [id number] Comp Fem Attune Poro Cr Sz 6n Lt Nrw Cmntlss 1504-01-126 - [id number] Implanted:Qty: 1 on 03/15/2025 by Tacho Rodgers MD at [facility] Knee Left: Knee [employer] [id number] 11/10/2034 [id number] / / [id number] Insert Tib Attune Aox Fb Medial Stblzd Sz6 7mm Lt 1518-20-607 - [id number] Implanted:Qty: 1 on 03/15/2025 by Tacho Rodgers MD at [facility] Knee Left: Knee [employer] [id number] 01/10/2033 1518-20-607 / / [id number] Ins Tib Attune 6x6mm Knee Implanted:Qty: 1 on 09/07/2024 by Tacho Rodgers MD at [facility] Right: Knee [id number] 08/13/2030 [id number] / / [id number] Procedures Procedure Name Priority [...] POC GLUCOSE Routine 03/15/2025 1:11 PM CDT [place] ANESTHESIA BLOCK PB PLACEHOLDER CHARGE Routine 03/15/2025 12:19 PM CDT [place] ARTHRP KNE CONDYLE&PLATU MEDIAL&LAT COMPARTMENTS 03/15/2025 11:54 [...] - 10.8 K/uL 03/16/2025 6:22 AM CDT [facility] RBC 3.73(L) 4.20 - 5.40 M/uL 03/16/2025 6:22 AM CDT [facility] HEMOGLOBIN 10.6(L) 12.0 - 16.0 g/dL 03/16/2025 6:22 AM CDT [facility] HEMATOCRIT 33.8(L) 36.0 - 46.0 % 03/16/2025 6:22 AM CDT [facility] MCV 90.6 84.0 - 103.0 fL 03/16/2025 6:22 AM CDT [facility] MCH 28.4(L) 31.0 - 37.0 pg 03/16/2025 6:22 AM CDT [facility] MCHC 31.4 30.0 - 35.0 g/dL 03/16/2025 6:22 AM CDT [facility] PLATELETS 143 140 - 440 K/uL 03/16/2025 6:22 AM CDT [facility] MPV 14.3(H) 8.9 - 12.8 fL 03/16/2025 6:22 AM CDT [facility] RDW 13.9 11.0 - 14.5 % 03/16/2025 6:22 AM CDT [facility] RDW-STDEV 46.4 37.0 - 54.0 fL 03/16/2025 6:22 AM CDT [facility] NEUTROPHILS 87(H) 42 - 75 % 03/16/2025 6:22 AM CDT [facility] LYMPHOCYTES 4(L) 24 - 44 % 03/16/2025 6:22 AM CDT [facility] MONOCYTES 8 2 - 10 % 03/16/2025 6:22 AM CDT [facility] EOSINOPHILS 0 0 - 7 % 03/16/2025 6:22 AM CDT [facility] BASOPHILS 0 0 - 1 % 03/16/2025 6:22 AM CDT [facility] IMMATURE GRANULOCYTES 0 0 - 2 % 03/16/2025 6:22 AM CDT [facility] NEUTROPHIL ABSOLUTE 16.79(H) 2.00 - 8.00 K/uL 03/16/2025 6:22 AM CDT [facility] LYMPHOCYTE ABSOLUTE 0.77(L) 1.20 - 4.00 K/uL 03/16/2025 6:22 AM CDT [facility] MONOCYTE ABSOLUTE 1.63(H) 0.10 - 0.60 K/uL 03/16/2025 6:22 AM CDT [facility] LAB[facility] EOSINOPHIL ABSOLUTE 0.01 0.00 - 0.70 K/uL 03/16/2025 6:22 AM CDT [facility] BASOPHILS ABSOLUTE 0.03 0.00 - 0.20 K/uL 03/16/2025 6:22 AM CDT [facility] IMMATURE GRANULOCYTES ABSOLUTE 0.06 0.00 - 0.10 K/uL 03/16/2025 6:22 AM T [facility] SMEAR REVIEWED: NA - Not Applicable 03/16/2025 6:22 AM CDT [facility] Blood Venipuncture / Unknown 03/16/2025 4:37 AM CDT 03/16/2025 5:55 AM CDT us Evans PARSONS HEMATOLOGY ORDERABLES Final Re sult [facility] CLIA #[id number] [facility] [place] [address] * (ABNORMAL) BASIC METABOLIC PANEL (03/16/2025 4:37 AM CDT) SODIUM 142 136 - 145 mmol/L 03/16/2025 6:[address] [facility] POTASSIUM 4.1 3.4 - 4.5 mmol/L 03/16/2025 6:[address] [facility] CHLORIDE 103 98 - 107 mmol/L 03/16/2025 6:30 AM [facility] CO2 22 22 - 29 mmol/L 03/16/2025 6:30 AM [facility] CALCIUM 8.9 8.6 - 10.0 mg/dL 03/16/2025 6:30 AM [facility] BUN 16 8 - 23 mg/dL 03/16/2025 6:30 AM [facility] CREATININE 0.60 0.51 - 0.95 mg/dL 03/16/2025 6:30 AM [facility] Comment:The GFR result is no t clinically significant on patients <18 or >70 years of age. GLUCOSE 134(H) 74 - 99 mg/dL 03/16/2025 6:30 AM [facility] GFR >60 mL/min/1.7 3 sq meter 03/16/2025 6:30 AM [facility] Comment:eGFR calculated with 2020 CKD-EPI equation. Vegetarian diet, extremely high or low muscle mass, and may affect results. Cystatin C with Glomerular Filtration Rate is a suitable alternative for these patients. ANION GAP 17 9 - 20 mmol/L 03/16/2025 6:30 AM [facility] Blood Venipuncture / Unknown 03/16/2025 4:37 AM CDT 03/16/2025 5:55 AM CDT us Evans PARSONS CHEMISTRY ORDERABLES Final Res ult [facility] CLIA #[id number] [address] [place] [address] * (ABNORMAL) POC GLUCOSE (03/15/2025 3:15 PM CDT) Only the most recent of2 resultswithin the time period is included. GLUCOSE POC 140(H) 74 - 99 mg/dL 03/15/2025 3:[address] [facility] SPECIMEN SOURCE, GLUCOSE POC Whole Blood 03/15/2025 3:[address] [facility] Blood, whole 03/15/2025 3:15 PM CDT 03/15/2025 3:24 PM CDT Tacho Rodgers MD POINT OF CARE TESTING F inal Result [facility] CLIA #[id number] [address] [place] [place] [address] * XR KNEE 1 OR 2 VW [...] [facility] DIAGNOSTIC IMAGING ORDERABLES Final Result * [place] ANESTHESIA BLOCK PB PLACEHOLDER CHARGE (03/15/2025 12:19 [...] Approach: Midline Location: L3-4 Injection Technique: Single-shot [place] Identification: palpation technique Number of Attempts: 2 [...] - 145 mmol/L 02/22/2025 3:50 PM CDT [facility] POTASSIUM 3.9 3.4 - 4.5 mmol/L 02/22/2025 3:50 PM CDT [facility] CHLORIDE 99 98 - 107 mmol/L 02/22/2025 3:50 PM CDT [facility] CO2 24 22 - 29 mmol/L 02/22/2025 3:50 PM CDT [facility] CALCIUM 9.5 8.6 - 10.0 mg/dL 02/22/2025 3:50 PM CDT [facility] BUN 13 8 - 23 mg/dL 02/22/2025 3:50 PM CDT [facility] CREATININE 0.67 0.51 - 0.95 mg/dL 02/22/2025 3:50 PM CDT [facility] Comment:The GFR result is no t clinically significant on patients <18 or >70 years of age. GLUCOSE 93 74 - 99 mg/dL 02/22/2025 3:50 PM CDT [facility] Comment:Reference range appl ies to fasting patients only. TOTAL PROTEIN 7.2 6.6 - 8.7 g/dL 02/22/2025 3:50 PM CDT [facility] ALBUMIN 4.3 4.0 - 4.9 g/dL 02/22/2025 3:50 PM CDT [facility] BILIRUBIN TOTAL 0.9 0.0 - 1.0 mg/dL 02/22/2025 3:50 PM CDT [facility] ALKALINE PHOSPHATASE 108(H) 35 - 104 U/L 02/22/2025 3:[address] [facility] AST 17 5 - 32 U/L 02/22/2025 3:[address] [facility] ALT 10 5 - 33 U/L 02/22/2025 3:[address] [facility] GFR >60 mL/min/1.7 3 sq meter 02/22/2025 3:[address] [facility] Comment:eGFR calculated with 2020 CKD-EPI equation. Vegetarian diet, extremely high or low muscle mass, and may affect results. Cystatin C with Glomerular Filtration Rate is a suitable alternative for these patients. ANION GAP 12 9 - 20 mmol/L 02/22/2025 3:[address] 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1945 Requested By: Order Number: [id number] José Miguel MD: Serg Nicolas Measurements Intervals [place] Rate: 71 P: 46 NH: 176 QRS: -36 QRSD: 102 T: 46 QT: 386 QTc: 419 Interpretive Statements Sinus rhythm with frequent premature ventricular complexes Left axis deviation Moderate voltage criteria for LVH, may be normal variant ( R in aVL, Leonardo product ) Abnormal ECG Electronically Signed On 02-22-2025 20:59:29 CDT by Serg Nicolas Procedure Note Serg Nicolas MD - 02/22/[address] [address] Test Date: 2025-02-22 Pat Name: AMARIS GERBER Department: 50 Room: Gender: Female 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: enzog : 1945 Requested By: Order Number: [id number] Reading MD: Serg Nicolas Measurements Intervals [place] Rate: 71 P: 46 NH: 176 QRS: -36 QRSD: 102 T: 46 QT: 386 QTc: 419 Interpretive Statements Sinus rhythm with frequent premature ventricular complexes Left axis deviation Moderate voltage criteria for LVH, may be normal variant ( R in aVL, Leonardo product ) Abnormal ECG Electronically Signed On 02-22-2025 20:59:29 CDT by Serg Nicolas us Celso Tate MD ECG ORDERABLES Final Result Performing Organization Address City/State/[facility] Co de Phone Number INTERFACE SYSTEM Refer [...] Result from Last [address] [place] [address] MEDICARE PART A AND B FOR LIFE [id number] [place] [address] [employer]
[2025-04-08 17:55] VITALS: BP 158/103; PULSE 77; RESP 18; TEMP 36.6; O2SAT 99
[2025-04-08 18:23] VITALS: BP 174/90; PULSE 74; O2SAT 98
[2025-04-08 18:32] LABS: Hematocrit 36.6 % (36-47); Hemoglobin 11.30 g/dL (11.27-16.99); Mean Corpuscular HGB Conc 30.9 g/dL (30-55); Mean Corpuscular Hemoglobin 26.2 pg (27-33); Mean Corpuscular Volume 84.9 fl (85-98); Nucleated Red Blood Cells % 0 %; Platelet Count 202 10^3/cmm (157-399); Red Blood Count 4.31 10^6/uL (3.85-5.65); White Blood Count 9.49 10^3/uL (3.29-11.43)
--- NOTE | 2025-04-08 18:35 | CTR_ITS ---
PROCEDURE INFORMATION: Exam: CT Abdomen And Pelvis With Contrast Exam date and time: 04/08/2025 7:39 PM Age: 80 years old Clinical indication: Abdominal pain; Localized; Left lower quadrant (llq); Prior surgery; Surgery date: 6+ months; Surgery type: Gb. Hysterectomy; Llq pain with constipation TECHNIQUE: Imaging protocol: Computed tomography of the abdomen and pelvis with contrast. Radiation optimization: All CT scans at this facility use at least one of these dose optimization techniques: automated exposure control; mA and/or kV adjustment per patient size (includes targeted exams where dose is matched to clinical indication); or iterative reconstruction. Contrast material: OMNI 350; Contrast volume: 100 ml; Contrast route: INTRAVENOUS (IV); COMPARISON: CR XR lumbar spine 2-3V* [id number] 12/30/2023 3:27 PM RADIATION DOSE METRICS: Total DLP (mGy-cm): 430.34 FINDINGS: Lungs: Mild bibasilar atelectasis. Liver: See Gallbladder and biliary ducts finding. Gallbladder and biliary ducts: Status post cholecystectomy. Mild prominence of the extrahepatic and central intrahepatic bile ducts may be due to reservoir effect. Pancreas: The pancreas is mildly atrophic. No ductal dilatation. Spleen: Calcified splenic granulomas. Adrenal glands: Normal. No mass. Kidneys and ureters: Normal. No hydronephrosis. Stomach and bowel: Redundant sigmoid colon. Large colonic stool burden throughout the majority of the colon. Scattered colonic diverticula most pronounced along the sigmoid colon. Mild focal colonic wall thickening and pericolonic fat stranding in the mid sigmoid colon. Fluid-filled small bowel loops are nonspecific. Appendix: No evidence of appendicitis. Intraperitoneal space: Unremarkable. No free air. No significant fluid collection. Vasculature: Mild atherosclerotic aortoiliac calcifications. No abdominal aortic aneurysm. Lymph nodes: Unremarkable. No enlarged lymph nodes. Urinary bladder: Unremarkable as visualized. Reproductive: Status post hysterectomy. No suspicious adnexal mass. Bones/joints: Advanced multilevel lumbar spondylosis. Moderate bilateral hip osteoarthritis. Soft tissues: Unremarkable. CT/CT abdomen pelvis w con* [id number] IMPRESSION: 1. Findings suggestive of focal infectious/inflammatory colitis and/or acute uncomplicated diverticulitis along the mid sigmoid colon. 2. Large colonic stool burden compatible with constipation. 3. Nonspecific fluid-filled small bowel loops. Enteritis is possible. 4. Additional nonemergent findings as above.
[2025-04-08 18:48] LABS: Alanine Aminotransferase 10 U/L (0-33); Albumin Level 4.1 g/dL (3.5-5.2); Alkaline Phosphatase 213 U/L (35-105); Anion Gap 15.4 (5-19); Aspartate Amino Transferase 15 U/L (0-32); Blood Urea Nitrogen 14 mg/dL (8-23); Calcium 9.3 mg/dL (8.5-10.5); Carbon Dioxide 25 mmol/L (22-29); Chloride 101 mmol/L (98-107); Globulin 3.1 g/dL (1.3-4.6); Glucose 95 mg/dL (65-115); Lipase 30 U/L (13-60); Osmolality Calculated 284 mOsm/kg (285-295); Potassium 4.4 mmol/L (3.5-5.1); Sodium 137 mmol/L (136-145); Total Protein 7.2 g/dL (6.6-8.7)
--- NOTE | 2025-04-08 18:58 | ED_ITS ---
HPI - Abdominal Pain 2 General: Chief Complaint: Abdominal Pain Stated Complaint: Stomach Pain Time Seen by Provider: 04/08/25 18:07 History of Present Illness: Patient is a 80-year-old female who presents today with complaints of abdominal cramping that began this afternoon. She reports a complex recent medical history, having undergone knee replacement surgery on March 15, 2025. Following surgery, she was prescribed pain medications which caused severe diarrhea. The diarrhea persisted for approximately 1.5-3 weeks. She was also taking clonazepam, but was advised by her doctor's nurse that she could not take these medications together, so she discontinued all medications. The patient states she has recovered from the diarrhea but is now experiencing significant abdominal cramping, particularly in the lower abdomen. She describes the pain as 'rolling up in a knot' and feeling like she needs to have a bowel movement but is unable to do so. She denies vomiting today but admits to occasional nausea, for which she has taken anti-nausea medication twice in recent days. The patient reports her last significant bowel movement was shortly after her diarrhea resolved, and since then has only passed small amounts of 'yellow mucus' and some 'little rocks' (likely scybalous stools) about two days ago. Related Data Previous Rx's ?Medication ?Instructions ?Recorded diclofenac sodium 1 % topical gel 2 g topical QID #100 grams 10/14/23 conjugated estrogens 0.625 mg/gram 0.3125 mg vaginal . Twice a week 11/18/23 vaginal cream (Premarin) #30 grams dicyclomine 10 mg capsule 10 mg PO TID PRN diarrhea #1 80 caps 11/18/23 triamcinolone acetonide 0.1 % 1 applic topical DAILY # 30 grams 11/18/23 topical cream cyclobenzaprine 10 mg tablet 10 mg PO TID PRN muscle s pasm 14 01/02/24 days #42 tabs venlafaxine 75 mg capsule,extended See Rx Instructions .Route 08/03/24 release 24 hr .COMPLEX #90 caps clonidine HCl 0.1 mg tablet 0.1 mg PO Q6H PRN for bloo d 12/28/24 pressure greater than 160/110 #30 tabs atenolol 25 mg tablet 25 mg PO DAILY high blood pr essure 03/04/25 #90 tabs losartan 50 mg tablet 50 mg PO DAILY #90 tabs 02/12 09/07 clonazepam 1 mg tablet 1 mg PO TID PRN Anxiety #90 tabs 03/28/25 ondansetron HCl 4 mg tablet 4 mg PO Q6H PRN nausea and 04/01/25 vomiting #30 tabs ciprofloxacin HCl 500 mg tablet 500 mg PO Q12H #14 tab s 04/08/25 ketorolac 10 mg tablet 10 mg PO TID PRN pain #10 ta bs 04/08/25 metronidazole 500 mg tablet 500 mg PO Q8H 7 days #21 t abs 04/08/25 ondansetron 4 mg disintegrating 4 mg PO Q6H PRN nausea and 04/08/25 tablet vomiting #14 tabs Allergies Allergy/AdvReac Type Severity Reaction Status Date / Time Sulfa (Sulfonamide Allergy hives Verified 04/04/25 10:58 Antibiotics) PFSH ED 2 PFSH: Medical History Anxiety and depression Weight gain Hx of basal cell carcinoma Macular degeneration Burning mouth syndrome Surgical History History of left knee replacement 03/2025 - Dr Vishal Shannon Hx of cataract surgery History of lobectomy of lung Right upper lobe removed - [facility] - 03/2023 H/O knee surgery Right knee replacement - 08/2024 Hx laparoscopic cholecystectomy History of hysterectomy Family History Father Cancer Stomach Alcoholic Grandmother Cancer Colon Cancer Social History Smoking and tobacco/nicotine status: never used tobacco/nicotine Quit status (tobacco/nicotine): has quit using Year quit tobacco: 1989 Former quit date comment: 5 pack years Alcohol intake: never Physical Exam 2 Const: GENERAL APPEARANCE: cooperative and anxious; not ill appearing HENMT: COMMON NORMALS: normocephalic, atraumatic and Normal external nose present HEAD & SCALP: normocephalic and atraumatic FACE & SINUS: normal facial exam NOSE: Normal external nose present Eye: COMMON NORMALS: Equal, round and reactive pupils present, EOMs intact bilaterally and conjunctivae normal CONJUNCTIVA: Yes conjunctivae normal P UPIL: Yes Equal, round and reactive pupils present Neck/C-Spine: GENERAL: Yes trachea midline Chest: CHEST: Yes Symmetrical chest wall rise Resp: COMMON NORMALS: normal respiratory effort, No use of accessory muscles and clear to auscultation bilaterally AUSCULTATION: clear to auscultation bilaterally Cardio: COMMON NORMALS: regular rate and regular rhythm RATE: regular rate RHYTHM: regular rhythm GI: COMMON NORMALS: Soft to palpation INSPECTION: No abdominal distension AUSCULTATION: Yes normoactive bowel sounds PALPATION: Yes Soft to palpation and Yes Tenderness to palpation present (GI) Details: LLQ and RLQ Extremity: COMMON NORMALS: no pedal edema Neuro: JACKIE COMA SCALE: document GCS findings [place] coma scale eye opening: Spontaneous Jackie coma scale verbal response: Orientated Jackie coma scale motor response: Obey commands Jackie coma scale total score: 15 Course 2 Vital Signs: Vital signs: Vital Signs Temperature 97.9 F 04/08/25 17:55 Pulse Rate 74 04/08/25 21:41 Respiratory Rate 18 04/08/25 17:55 Blood Pressure 158/75 04/08/25 21:41 Pulse Oximetry 96 04/08/25 21:41 Oxygen Delivery Me thod Room Air 04/08/25 21:02 MDM - Abdominal Pain Medical Decision Making Patient does have tenderness in right and left lower quadrants. There are some guarding present. She is quite anxious on exam. Normal bowel sounds. Lipase is normal. CRP is normal at 3. CBC and BMP are normal. Liver enzymes are normal. CT is pending. CT shows mild focal infectious full amatory colitis or uncomplicated diverticulitis in the mid sigmoid colon. She is given ciprofloxacin and metronidazole for this. She tells me she has had C. difficile infection twice. Metronidazole should be more appropriate for this. She is also quite constipated. She is given magnesium citrate to take at home. Toradol and Zofran for symptom control. Plenty of hydration. She knows to return for any worsening symptoms. She stable for discharge currently. Lab Data 04/08/25 18:27 04/08/25 18:27 Labs/Radiology: Radiology Impressions Abdomen/Pelvis CT 04/08/25 18:35 IMPRESSION: 1. Findings suggestive of focal infectious/inflammatory colitis and/or acute uncomplicated diverticulitis along the mid sigmoid colon. 2. Large colonic stool burden compatible with constipation. 3. Nonspecific fluid-filled small bowel loops. Enteritis is possible. 4. Additional nonemergent findings as above. Laboratory Results WBC 9.49 10^3/uL (3.29-11.43) 04/08/25 18: RBC 4.31 10^6/uL (3.85-5.65) 04/08/25 18: Hgb 11.30 g/dL (11.27-16.99) 04/08/25 18: Hct 36.6 % (36-47) 04/08/25 18: MCV 84.9 fl (85-98) L 04/08/25 18: MCH 26.2 pg (27-33) L 04/08/25 18: MCHC 30.9 g/dL (30-55) 04/08/25 18: RDW 13.6 % (12.1-15.1) 04/08/25 18: Plt Count 202 10^3/cmm (157-399) 04/08/25 18: MPV 12.6 fL (7.4-10.4) H 04/08/25 18: Neut % (Auto) 70.0 % 04/08/25 18: Lymph % (Auto) 17.6 % 04/08/25 18: Coal % (Auto) 11.8 % 04/08/25 18: Eos % (Auto) 0.2 % 04/08/25 18: Baso % (Auto) 0.1 % 04/08/25 18: Neut # (Auto) 6.64 10^3/uL (1.8-7.7) 04/08/25 18: Lymph # (Auto) 1.7 10^3/uL (0.8-4.8) 04/08/25 18: Coal # (Auto) 1.1 10^3/uL (0.2-0.9) H 04/08/25 18: Eos # (Auto) 0.0 10^3/uL (0.0-0.8) 04/08/25 18: Baso # (Auto) 0.0 10^3/uL (0.0-0.1) 04/08/25 18: Nucleated RBC % (auto) 0 % 04/08/25 18: Nucleated RBCs # 0.0 /100WBC 04/08/25 18: Sodium 137 mmol/L (136-145) 04/08/25 18: Potassium 4.4 mmol/L (3.5-5.1) 04/08/25 18: Chloride 101 mmol/L (98-107) 04/08/25 18: Carbon Dioxide 25 mmol/L (22-29) 04/08/25 18: Anion Gap 15.4 (5-19) 04/08/25 18: BUN 14 mg/dL (8-23) 04/08/25 18: Creatinine 0.6 mg/dL (0.5-0.9) 04/08/25 18: GFR Calculation Not Reportable 04/08/25 18: Glucose 95 mg/dL (65-115) 04/08/25 18: Calculated Osmolality 284 mOsm/kg (285-295) L 04/08/25 18: Calcium 9.3 mg/dL (8.5-10.5) 04/08/25 18: Total Bilirubin 0.7 mg/dL (0.15-1.2) 04/08/25 18: AST 15 U/L (0-32) 04/08/25 18: ALT 10 U/L (0-33) 04/08/25 18: Alkaline Phosphatase 213 U/L (35-105) H 04/08/25 18: C-Reactive Protein 3.0 mg/L (0.0-4.9) 04/08/25 18: Total Protein 7.2 g/dL (6.6-8.7) 04/08/25 18: Albumin 4.1 g/dL (3.5-5.2) 04/08/25 18: Globulin 3.1 g/dL (1.3-4.6) 04/08/25 18: Lipase 30 U/L (13-60) 04/08/25 18: Urine Color Yellow (Yellow) 04/08/25 18:41 Urine Appearance Clear (CLEAR) 04/08/25 18:41 Urine pH 6.5 (5-7) 04/08/25 18:41 Ur Specific [place] 1.018 (1.005-1.030) 04/08/25 18:41 Urine Protein Negative (Negative) 04/08/25 18:41 Urine Glucose (UA) Negative (Normal) 04/08/25 18:41 Urine Ketones Negative (Negative) 04/08/25 18:41 Urine Blood Negative (Negative) 04/08/25 18:41 Urine Nitrate Negative (Negative) 04/08/25 18:41 Urine Bilirubin Negative (Negative) 04/08/25 18:41 Urine Urobilinogen 1.0 mg/dL (Negative) 04/08/25 18:41 Ur Leukocyte Esterase Trace (Negative) A 04/08/25 18:41 Urine RBC 3-5 /hpf (0-2) 04/08/25 18:41 Urine WBC 6-10 /hpf (0-5) 04/08/25 18:41 Ur Squamous Epith Cells 0-5 /hpf (0-5) 04/08/25 18:41 Amorphous Sediment Not Reportable 04/08/25 18:41 Urine Bacteria 4+ /hpf (NONE) H 04/08/25 18:41 Hyaline Casts 5.77 /lpf 04/08/25 18:41 All radiology interpretation(s) finalized by discharge Discharge Plan Discharge Patient Disposition: Home Clinical Impression: Diverticulitis, Constipation Condition: Stable Prescriptions: New ciprofloxacin HCl 500 mg tablet 500 mg PO Q12H Qty: 14 0RF ketorolac 10 mg tablet 10 mg PO TID PRN (Reason: pain) Qty: 10 0RF ondansetron 4 mg tablet,disintegrating 4 mg PO Q6H PRN (Reason: nausea and vomiting) Qty: 14 0RF metronidazole 500 mg tablet 500 mg PO Q8H 7 Days Qty: 21 0RF No Action clonidine HCl 0.1 mg tablet 0.1 mg PO Q6H PRN (Reason: for blood pressure greater than 160/110) Qty: 30 0RF ondansetron HCl 4 mg tablet 4 mg PO Q6H PRN (Reason: nausea and vomiting) Qty: 30 0RF diclofenac sodium 1 % gel 2 g topical QID Qty: 100 3RF Rx Instructions: apply to single elbow, wrist or hand; for hand includes palm/fingers/back of hand Premarin 0.625 mg/gram cream 0.3125 mg vaginal .Twice a week Qty: 30 3RF Rx Instructions: off 5 days; repeat cycle dicyclomine 10 mg capsule 10 mg PO TID PRN (Reason: diarrhea) Qty: 180 3RF triamcinolone acetonide 0.1 % cream 1 applic topical DAILY Qty: 30 6RF cyclobenzaprine 10 mg tablet 10 mg PO TID PRN (Reason: muscle spasm) 14 Days Qty: 42 0RF venlafaxine 75 mg capsule,extended release 24hr See Rx Instructions .ROUTE .COMPLEX Qty: 90 3RF Dose Instruction: TAKE 1 CAPSULE DAILY Rx Instructions: TAKE 1 CAPSULE DAILY losartan 50 mg tablet 50 mg PO DAILY Qty: 90 3RF atenolol 25 mg tablet 25 mg PO DAILY Qty: 90 3RF clonazepam 1 mg tablet 1 mg PO TID PRN (Reason: Anxiety) Qty: 90 3RF Discharge Orders: Discharge ED (Routine); Ordered 04/08/25 Ordered By: Candido Dominique Referrals: Abdoul Robles MD [Primary Care Provider, [facility]] - 1-3 days Patient Instructions: Diverticulitis (ED), Constipation (ED), Opioid Safety, Pain Management, Patient Portal & Shoaib Instructions Activity Restrictions/Additional Instructions: Take the magnesium citrate when you get home to relieve constipation. Stay close to the bathroom for the next 12 hours after taking. Antibiotics as directed for mild diverticulitis. You may take pain and nausea medication as needed for discomfort and nausea. Return for any problems, including worsening pain, blood in the stool, vomiting, fever despite antibiotics, other concerning symptoms. Follow-up with your doctor next week. Call Friday for an appointment. 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
[2025-04-08 19:01] LABS: Glucose Urine UA Negative (Normal); Nitrate Urine Negative (Negative); Specific Gravity, Urine 1.018 (1.005-1.030)
[2025-04-08] MEDS: ondansetron 2 mg/ML SDV 2 mL 4 MG IVP (19:04)
[2025-04-08 19:06] LABS: Add Urine Microscopic? YES
[2025-04-08 19:09] VITALS: BP 177/91; PULSE 70; O2SAT 98
[2025-04-08] MEDS: iohexol 350 mg/mL 500 mL Btl (per mL) IV (19:40)
[2025-04-08 21:02] VITALS: BP 160/84; PULSE 72; O2SAT 96
[2025-04-08] MEDS: magnesium citrate Btl 296 mL PO (21:35)
[2025-04-08 21:41] VITALS: BP 158/75; PULSE 74; O2SAT 96
== END 2025-04-08 21:42 | disposition home or self-care (01) ==
PROVIDERS: Emergency Provider Emergency Medicine; PCP Family Medicine
DX: K57.32 Diverticulitis of large intestine without perforation or abscess without bleeding (principal); K59.00 Constipation, unspecified; Z87.891 Personal history of nicotine dependence; Z85.828 Personal history of other malignant neoplasm of skin
CPT/HCPCS: 36415; 74177; 80053; 81001; 83690; 85025; 86140; 96374; 96375; 99285; J1885; J2405; J9999

== ENCOUNTER 2025-05-05 11:52 | Observation (INO) | payer MEDICARE, OTHER, SELFPAY ==
[2025-05-05] VITALS (11 sets, daily range): BP systolic 154–198; BP diastolic 63–100; PULSE 64–89; RESP 18–19; TEMP 36.4–36.6; O2SAT 95–100; BMI 23.3
--- NOTE | 2025-05-05 12:10 | XR_ITS ---
WS: [id number] KUB, AP view, 05/05/2025 Clinical Data: abd pain Comparison: None. Findings: No abnormal intraabdominal masses or calcifications are seen. There is no dilatated small bowel or evidence of obstruction. There is air in the small bowel and the colon. 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 XR/XR abdomen 1V* [id number] Impression: Moderate generalized ileus.
--- OUTSIDE RECORDS SUMMARY | 2025-05-05 12:20 | XMS_ITS | Encounter Summary ---
Author [facility] Address [address] [place] [address] Care Team Providers Care Accountant Cost Name Role Phone Unavailable Primary Care Provider Unavailabl e Encounter Details Date Type Department Care Team (Late st Contact Info) Description 05/03/2025 External Device Data [place] ABSTRACTION Provider, Abstract NO ADDRESS ON FILE Social History Tobacco Use Types Packs/Day Years [...] on file Sexual Orientation Not on file documented as of this encounter Plan of Treatment Upcoming Encounters Date Type Department Care Team (Late st Contact Info) Description 03/16/2026 1:40 PM CDT Office Visit [facility] Orth[facility] - Orthopedic [facility] [address] [place] [phone] Saira Garza PA [address] [place] [phone] documented as of this encounter Visit Diagnoses Not on filedocumented in this encounter
--- OUTSIDE RECORDS SUMMARY | 2025-05-05 12:20 | XMS_ITS | Clinical Summary ---
Author Organization [facility] Address [address] [place] [address] Care Team Providers Care Assistant Chief Engineer Name Role Phone Unavailable Primary Care Provider Unavailabl e Allergies Active Allergy Reactions Criticality Noted Date Comments Sulfa (Sulfonamide Antibiotics) Rash Low 02/11 Medications losartan (COZAAR) 50 mg tablet Take 50 mg by mouth daily. 3 Active clonazePAM (KlonoPIN) 1 mg tablet Take 1 mg by mouth 2 times daily. 3 Active atenoloL (TENORMIN) 25 mg tablet Take 25 mg by mouth daily. 4 Active venlafaxine 75 mg Extended Release 24 hour tablet Take 75 mg by mouth daily with breakfast. 3 Active dicyclomine (BENTYL) 10 mg capsule Take 10 mg by mouth 3 times daily. 4 Active diphenhydrAMINE (BENADRYL) 25 mg tablet Take 25 mg by mouth every 8 hours as needed for Allergies. Active cetirizine (ZyrTEC) 10 mg tablet Take 10 mg by mouth daily. Active conjugated estrogens (Premarin) 0.625 mg/gram vaginal cream Insert 0.5 Grams vaginally. 2 times weekly 4 Active prednisoLONE acetate (PRED FORTE) 1 % suspension Administer 1 Drop in both eyes 2 times daily. 4 Active peg 400-propylene glycol (SYSTANE) 0.4-0.3 % solution 1 Drop every 2 hours. Active olopatadine (Pataday Twice Daily Relief) 0.1 % solution 1 Drop 2 times daily. Active cloNIDine HCL (CATAPRES) 0.1 mg tablet Take 0.1 mg by mouth Continuous as needed. 5 Active Cephalexin 500 mg Tablet Take 500 mg by mouth Continuous as needed. 5 Active acetaminophen (TYLENOL) 325 mg tablet Take 2 Tablets (650 mg) by mouth every 6 hours. 240 Tablet 5 04/14/20 25 bisacodyL (DULCOLAX) 5 mg Delayed Release tablet Take 1 Tablet (5 mg) by mouth 1 time daily as needed for Constipation. 28 Tablet 5 04/12/20 25 aspirin (Ecotrin Low Strength) 81 mg Tablet, Delayed Release (E.C.) Take 1 Tablet (81 mg) by mouth 2 times daily. 60 Tablet 03/16/2025 2:32 PM CDT 5 04/15/20 25 famotidine (Pepcid) 20 mg tablet Take 1 Tablet (20 mg) by mouth 2 times daily. 60 Tablet 5 04/14/20 25 Active Problems Problem Noted Date Diagnosed Date Status post total left knee replacement 03/15/20 25 Primary osteoarthritis of left knee 02/22/2025 Irritable bowel syndrome 02/22/2025 Anemia 02/22/2025 Status post total right knee replacement 025 Primary osteoarthritis of right knee 07/15/2024 Preoperative general physical examination 2024 Anxiety 07/15/2024 Primary hypertension 07/15/2024 Dyslipidemia 07/15/2024 History of tobacco use 07/15/2024 History of lobectomy of lung 07/15/2024 Encounters Date Type Department Care Team Description 05/03/2025 External Device Data STL ABSTRACTION Provider, Abstract 04/25/2025 1:40 PM CDT Office Visit [place] [address] [place] [address] Saira Garza, ISSA S/P revision of total knee, left (Primary Dx) 04/25/2025 12:25 PM CDT Ancillary Procedure [place] [address] [place] [address] Tacho Rodgers MD Status post total left knee replacement 04/21/2025 Orders Only [place] [address] [place] [address] Tacho Rodgers MD Status post total left knee replacement (Primary Dx) 04/12/2025 Orders Only [facility] [address] [place] [address] Tacho Rodgers MD Status post total left knee replacement (Primary Dx) 03/24/2025 Refill [facility] [address] [place] [address] Tacho Rodgers MD Primary osteoarthritis of left knee 03/21/2025 Telephone [place] [address] [place] [phone] Tacho Rodgers MD Information 03/21/2025 Telephone [facility] Case Management [address] [place] [address] Tacho Rodgers MD Hospital Follow Up 03/19/2025 [facility] Case Management [address] [place] [address] Tacho Rodgers MD Hospital Follow Up (Day 3) 03/15/2025 11:54 AM CDT - 03/15/2025 1:23 PM CDT Surgery [facility] Operating Room [address] [place] [address] Tacho Rodgers MD KNEE ARTHROPLASTY TOTAL REPLACEMENT 03/15/2025 11:47 AM CDT Anesthesia Event [facility] Operating Room [address] [place] [address] Zack Ding MD Crabtree, Chris-Anne, CRNA 03/15/2025 8:45 AM CDT - 03/16/2025 2:21 PM CDT Hospital Encounter [facility] Inpatient [address] [place] [address] Tacho Rodgers MD Status post total left knee replacement Discharge Disposition: Home or Self Care 03/15/2025 External Device Data STL ABSTRACTION Provider, Abstract 2025 External Device Data Initial Department [address] ROBERTS: [place] [address] Yuniel Emergency[facility] 03/02/2025 External Device Data STL ABSTRACTION Provider, Abstract 02/22/2025 3:12 PM CDT - 02/22/2025 11:59 PM CDT Hospital Encounter [facility] [address] [place] [address] Celso Tate MD Discharge Disposition: Home or Self Care 02/22/2025 1:53 PM CDT - 02/22/2025 11:59 PM CDT Hospital Encounter [facility] [address] [place] [address] Tacho Rodgers MD Discharge Disposition: Home or Self Care 02/22/2025 Travel 02/16/2025 External Device Data Initial Department [address] KAUFMANN: [place] [address] Yuniel White Md from Last 3 Months Family History Medical [...] Sign Reading Time Taken Comments Blood Pressure 134/80 04/25/2025 1:50 PM CDT Pulse 70 03/16/2025 2:15 PM CDT Temperature 36.6 C (97.8 F) 03/16/2025 2:15 PM CDT Respiratory Rate 16 03/16/2025 4:30 AM CDT Oxygen Saturation 96% 03/16/2025 2:15 PM CDT Inhaled Oxygen Concentration - - Weight 70.3 kg (155 lb) 04/25/2025 1:50 PM CDT Height 172.7 cm (5' 8 ) 04/25/2025 1:50 PM CDT Body Mass Index 23.57 04/25/2025 1:50 PM CDT Plan of Treatment Upcoming Encounters Date Type Department Care Team (Late st Contact Info) Description 03/16/2026 1:40 PM CDT Office Visit [facility] [address] [place] [phone] Saira Garza, ISSA [address] [place] [phone] Health Maintenance Due Date Last Done Comments DTAP/TDAP/TD VACCINES (1 - Tdap) 1966 PNEUMOCOCCAL VACCINE 50+ YEA RS (1 of 1 - PCV) 1997 ZOSTER VACCINE (1 of 2) 1997 OSTEOPOROSIS SCREENING 2012 RSV VACCINE (60+ or ) (1 - 1-dose 75+ series) 2022 INFLUENZA VACCINE (#1) 2025 COVID-19 Vaccine (3 - season) 2025, 12/25/2020 Medical Devices Implanted Type Area Care Partner Device Identifier Shelf Expiration Date Model / Serial / Lot Comp Fem Attune Poro Cr Sz 6n Rt Cmntlss 1504-01-226 - [id number] Implanted:Qty: 1 on 09/07/2024 by Tacho Rodgers MD at [facility] Knee Right: Knee [employer] [id number] 01/10/2034 1504- / / [id number] Baseplate Tib Attune Fxd Bearing Sz5 1506-21-005 - [id number] Implanted:Qty: 1 on 09/07/2024 by Tacho Rodgers MD at [facility] Knee Right: Knee [employer] [id number] 12/11/2032 1506-21-005 / / [id number] Baseplate Tib Attune Fxd Bearing Sz 6 [id number] - [id number] Implanted:Qty: 1 on 03/15/2025 by Tacho Rodgers MD at [facility] Knee Left: Knee [employer] [id number] 06/12/2032 [id number] / / [id number] Comp Fem Attune Poro Cr Sz 6n Lt Nrw Cmntlss 1504-01-126 - [id number] Implanted:Qty: 1 on 03/15/2025 by Tacho Rodgers MD at [facility] Knee Left: Knee [employer] [id number] 11/10/2034 [id number] / / [id number] Insert Tib Attune Aox Fb Medial Stblzd Sz6 7mm Lt 1518-20-607 - [id number] Implanted:Qty: 1 on 03/15/2025 by Tacho Rodgers MD at [facility] Knee Left: Knee [employer] [id number] 01/10/2033 1518-20-607 / / [id number] Ins Tib Attune 6x6mm Knee Implanted:Qty: 1 on 09/07/2024 by Tacho Rodgers MD at [facility] Right: Knee [id number] 08/13/2030 [id number] / / [id number] Procedures Procedure Name Priority Date/Time Associated Diagnosis Comments XR KNEE 3 VW LEFT Routine 04/25/2025 12: 27 PM CDT Status post total left knee replacement TELEMETRY REPORT 03/18/2025 3:29 PM CDT BASIC METABOLIC PANEL Routine 03/16/2025 4:37 AM CDT CBC WITH DIFFERENTIAL Routine 03/16/2025 4:37 AM CDT POC GLUCOSE Routine 03/15/2025 3:15 PM CDT RT ASSESS AND TREAT Routine 03/15/2025 2 :36 PM CDT XR KNEE 1 OR 2 VW LEFT Routine 03/15/2025 1:29 PM CDT POC GLUCOSE Routine 03/15/2025 1:11 PM CDT SC ANESTHESIA BLOCK PB PLACEHOLDER CHARGE Routine 03/15/2025 12:19 PM CDT SC ARTHRP KNE CONDYLE&PLATU MEDIAL&LAT COMPARTMENTS 03/15/2025 11:54 AM CDT Osteoarthritis of left knee, unspecified osteoarthritis type XR CHEST PA OR AP 1 VW Routine 02/22/2025 3:28 PM CDT Preoperative testing COMPREHENSIVE METABOLIC PANEL Routine 02/22/2025 3:20 PM CDT CBC WITH DIFFERENTIAL Routine 02/22/2025 3:20 PM CDT EKG 12-LEAD Routine 02/22/2025 3:16 PM CDT from Last 3 Months Results * XR KNEE 3 VW LEFT (04/25/2025 12:27 PM CDT) Anatomical Region Laterality Modality Lower Extremity Computed Radiogr aphy Narrative 04/26/2025 10:24 AM CDT AP, lateral and sunrise view radiographs of the left knee are obtained today. These xrays demonstrate excellent position of the components without evidence of fracture, subsidence, loosening, or malalignment. No radiographic complications noted. us Tacho Rodgers MD DIAGNOSTIC IMAGING MICHAEL KATE Final Result * TELEMETRY REPORT (03/18/2025 3:29 PM CDT) us Provider Scanning ECG ORDERABLES Final Result * (ABNORMAL) CBC WITH DIFFERENTIAL (03/16/2025 4:37 AM CDT) Only the most recent of2 resultswithin the time period is included. WBC 19.3(H) 4.8 - 10.8 K/uL 03/16/2025 6:[address] [facility] RBC 3.73(L) 4.20 - 5.40 M/uL 03/16/2025 6:[address] [facility] HEMOGLOBIN 10.6(L) 12.0 - 16.0 g/dL 03/16/2025 6:22 AM [facility] HEMATOCRIT 33.8(L) 36.0 - 46.0 % 03/16/2025 6:[address] [facility] MCV 90.6 84.0 - 103.0 fL 03/16/2025 6:[address] [facility] MCH 28.4(L) 31.0 - 37.0 pg 03/16/2025 6:[address] [facility] MCHC 31.4 30.0 - 35.0 g/dL 03/16/2025 6:22 AM [facility] PLATELETS 143 140 - 440 K/uL 03/16/2025 6:[address] [facility] MPV 14.3(H) 8.9 - 12.8 fL 03/16/2025 6:[address] [facility] RDW 13.9 11.0 - 14.5 % 03/16/2025 6:[address] [facility] RDW-STDEV 46.4 37.0 - 54.0 fL 03/16/2025 6:22 AM [facility] NEUTROPHILS 87(H) 42 - 75 % 03/16/2025 6:[address] [facility] LYMPHOCYTES 4(L) 24 - 44 % 03/16/2025 6:[address] [facility] MONOCYTES 8 2 - 10 % 03/16/2025 6:[address] [facility] EOSINOPHILS 0 0 - 7 % 03/16/2025 6:[address] [facility] BASOPHILS 0 0 - 1 % 03/16/2025 6:22 AM CDT [facility] IMMATURE GRANULOCYTES 0 0 - 2 % 03/16/2025 6:22 AM CDT [facility] NEUTROPHIL ABSOLUTE 16.79(H) 2.00 - 8.00 K/uL 03/16/2025 6:[address] [facility] LYMPHOCYTE ABSOLUTE 0.77(L) 1.20 - 4.00 K/uL 03/16/2025 6:[address] [facility] MONOCYTE ABSOLUTE 1.63(H) 0.10 - 0.60 K/uL 03/16/2025 6:22 AM CDT [facility] EOSINOPHIL ABSOLUTE 0.01 0.00 - 0.70 K/uL 03/16/2025 6:[address] [facility] BASOPHILS ABSOLUTE 0.03 0.00 - 0.20 K/uL 03/16/2025 6:[address] [facility] IMMATURE GRANULOCYTES ABSOLUTE 0.06 0.00 - 0.10 K/uL 03/16/2025 6:[address] [facility] SMEAR REVIEWED: NA - Not Applicable 03/16/2025 6:22 AM CDT [facility] Blood Venipuncture / Unknown 03/16/2025 4:37 AM CDT 03/16/2025 5:55 AM CDT us Evans PARSONS HEMATOLOGY ORDERABLES Final Re sult [facility] CLIA #[id number] [address] [place] [address] * (ABNORMAL) BASIC METABOLIC PANEL (03/16/2025 4:37 AM CDT) SODIUM 142 136 - 145 mmol/L 03/16/2025 6:30 AM T [facility] POTASSIUM 4.1 3.4 - 4.5 mmol/L 03/16/2025 6:30 AM T [facility] CHLORIDE 103 98 - 107 mmol/L 03/16/2025 6:30 AM T [facility] CO2 22 22 - 29 mmol/L 03/16/2025 6:30 AM T [facility] CALCIUM 8.9 8.6 - 10.0 mg/dL 03/16/2025 6:30 AM T [facility] BUN 16 8 - 23 mg/dL 03/16/2025 6:30 AM [facility] CREATININE 0.60 0.51 - 0.95 mg/dL 03/16/2025 6:30 AM [facility] Comment:The GFR result is no t clinically significant on patients <18 or >70 years of age. GLUCOSE 134(H) 74 - 99 mg/dL 03/16/2025 6:30 AM [facility] GFR >60 mL/min/1.7 3 sq meter 03/16/2025 6:30 AM [facility] Comment:eGFR calculated with 2020 CKD-EPI equation. Vegetarian diet, extremely high or low muscle mass, and may affect results. Cystatin C with Glomerular Filtration Rate is a suitable alternative for these patients. ANION GAP 17 9 - 20 mmol/L 03/16/2025 6:30 AM T [facility] Blood Venipuncture / Unknown 03/16/2025 4:37 AM CDT 03/16/2025 5:55 AM CDT us Evans PARSONS CHEMISTRY ORDERABLES Final Res ult [facility] CLIA #[id number] [address] [id number] * (ABNORMAL) POC GLUCOSE (03/15/2025 3:15 PM CDT) Only the most recent of2 resultswithin the time period is included. GLUCOSE POC 140(H) 74 - 99 mg/dL 03/15/2025 3:15 PM CDT [facility] SPECIMEN SOURCE, GLUCOSE POC Whole Blood 03/15/2025 3:15 PM CDT [facility] Blood, whole 03/15/2025 3:15 PM CDT 03/15/2025 3:24 PM CDT Tacho Rodgers MD POINT OF CARE TESTING F inal Result [facility] CLIA #[id number] [address] [place] [id number] * XR KNEE 1 OR 2 VW [...] acute osseous abnormality. Procedure Note Baldo Burks, DO - 03/15/2025 Exam: XR KNEE 1 OR [...] [facility] DIAGNOSTIC IMAGING ORDERABLES Final Result * SC ANESTHESIA BLOCK PB PLACEHOLDER CHARGE (03/15/2025 12:19 PM CDT) Narrative Kalpana Perdomo CRNA - 03/15/2025 12:19 PM CDT Kalpana Perdomo CRNA 03/15/2025 12:19 PM Spinal Block Patient location during procedure: OR Start time: 03/15/2025 11:56 AM End time: 03/15/2025 12:01 PM Reason for block: at surgeon's request and primary anesthetic Staffing Performed: SOLOMON/CAA Authorized by: Zack Ding MD Performed by: [...] Approach: Midline Location: L3-4 Injection Technique: Single-shot [employer] Identification: palpation technique Number of Attempts: 2 [...] - 145 mmol/L 02/22/2025 3:[address] [facility] POTASSIUM 3.9 3.4 - 4.5 mmol/L 02/22/2025 3:[address] [facility] CHLORIDE 99 98 - 107 mmol/L 02/22/2025 3:[address] [facility] CO2 24 22 - 29 mmol/L 02/22/2025 3:[address] [facility] CALCIUM 9.5 8.6 - 10.0 mg/dL 02/22/2025 3:[address] [facility] BUN 13 8 - 23 mg/dL 02/22/2025 3:[address] [facility] CREATININE 0.67 0.51 - 0.95 mg/dL 02/22/2025 3:[address] [facility] Comment:The GFR result is no t clinically significant on patients <18 or >70 years of age. GLUCOSE 93 74 - 99 mg/dL 02/22/2025 3:[address] [facility] Comment:Reference range appl ies to fasting patients only. TOTAL PROTEIN 7.2 6.6 - 8.7 g/dL 02/22/2025 3:[address] [facility] ALBUMIN 4.3 4.0 - 4.9 g/dL 02/22/2025 3:[address] [facility] BILIRUBIN TOTAL 0.9 0.0 - 1.0 mg/dL 02/22/2025 3:[address] [facility] ALKALINE PHOSPHATASE 108(H) 35 - 104 U/L 02/22/2025 3:50 PM CDT [facility] AST 17 5 - 32 U/L 02/22/2025 3:[address] [facility] ALT 10 5 - 33 U/L 02/22/2025 3:[address] [facility] GFR >60 mL/min/1.7 3 sq meter 02/22/2025 3:50 PM CDT [facility] Comment:eGFR calculated with 2020 CKD-EPI equation. Vegetarian diet, extremely high or low muscle mass, and may affect results. Cystatin C with Glomerular Filtration Rate is a suitable alternative for these patients. ANION GAP 12 9 - 20 mmol/L 02/22/2025 3:50 PM CDT [facility] Blood Venipuncture / Unknown 02/22/2025 3:20 PM CDT 02/22/2025 3:25 PM CDT us Celso Tate MD CHEMISTRY ORDERABLES Final Resu lt [facility] CLIA #[id number] [address] [id number] * EKG 12-LEAD (02/22/2025 3:16 PM CDT) 02/22/2025 3:16 PM CDT Narrative INTERFACE SYSTEM - 02/22/2025 8:59 PM CDT [facility] [address] [place] [address] Test Date: 2025-02-22 Pat Name: AMARIS GERBER Department: 50 Room: Gender: Female Relationship Specialist: nancy : 1945 Requested By: Order Number: [id number] Reading : Serg Nicolas Measurements Intervals [place] Rate: 71 P: 46 SC: 176 QRS: -36 QRSD: 102 T: 46 QT: 386 QTc: 419 Interpretive Statements Sinus rhythm with frequent premature ventricular complexes Left axis deviation Moderate voltage criteria for LVH, may be normal variant ( R in aVL, Leonardo product ) Abnormal ECG Electronically Signed On 02-22-2025 20:59:29 CDT by Serg Nicolas Procedure Note Serg Nicolas MD - 02/22/2025 [place] [address] [place] [address] Test Date: 2025-02-22 Pat Name: AMARIS GERBER Department: 50 Room: Gender: Female Relationship Specialist: enzo : 1945 Requested By: Order Number: [id number] Reading EDWIN Nicolas Measurements Intervals [place] Rate: 71 P: 46 SC: 176 QRS: -36 QRSD: 102 T: 46 QT: 386 QTc: 419 Interpretive Statements Sinus rhythm with frequent premature ventricular complexes Left axis deviation Moderate voltage criteria for LVH, may be normal variant ( R in aVL, Leonardo product ) Abnormal ECG Electronically Signed On 02-22-2025 20:59:29 CDT by Serg Nicolas Celso Tate MD ECG ORDERABLES Final Result INTERFACE SYSTEM Refer to clinic/hospital department from Last [address] [place] [address] MEDICARE PART A AND B FOR LIFE [address] [place] [address] [employer]
[2025-05-05 12:42] LABS: Hematocrit 40.2 % (36-47); Hemoglobin 12.40 g/dL (11.27-16.99); Mean Corpuscular HGB Conc 30.8 g/dL (30-55); Mean Corpuscular Hemoglobin 25.7 pg (27-33); Mean Corpuscular Volume 83.4 fl (85-98); Nucleated Red Blood Cells % 0 %; Platelet Count 177 10^3/cmm (157-399); Red Blood Count 4.82 10^6/uL (3.85-5.65); White Blood Count 8.11 10^3/uL (3.29-11.43)
--- NOTE | 2025-05-05 12:52 | W.ED.ABDPA2 ---
HPI - Abdominal Pain General: Chief Complaint: Abdominal Pain Stated Complaint: N/V/D constapation Time Seen by Provider: 05/05/25 12:47 History of Present Illness: 80-year-old female with a history of anxiety and depression, insomnia, chronic clonazepam therapy, chronic constipation and hypertension who presents to the emergency room with nausea vomiting and lower abdominal pain. She was seen here recently and treated for constipation. She says she took the medicine but immediately threw it up. She has not been keeping anything down at home. She is very anxious on arrival. Related Data Home Medications ?Medication ?Instructions ?Recorded ?Confirmed atenolol 25 mg tablet 25 mg PO QAM high blood pressure 05/05/25 05/05/25 ciprofloxacin HCl 500 mg tablet 500 mg PO Q12H 05/05/25 05/05/25 clonazepam 1 mg tablet 1 mg PO BID PRN Anxiety 05/05/25 05/05/25 lactobacillus combination no.4 3 3,000 mmu cells PO DAILY 05/05/25 05/05/25 billion cell capsule (Probiotic) losartan 50 mg tablet 50 mg PO QAM 05/05/25 05/05/25 metronidazole 500 mg tablet 500 mg PO Q8H 05/05/25 05/05/25 venlafaxine 75 mg capsule,extended 75 mg PO QAM 05/05/25 05/05/25 release 24 hr Previous Rx's ?Medication ?Instructions ?Recorded clonidine HCl 0.1 mg tablet 0.1 mg PO Q6H PRN for blood 12/28/24 pressure greater than 160/110 #30 tabs ketorolac 10 mg tablet 10 mg PO TID PRN pain #10 tabs 04/08/25 ondansetron 4 mg disintegrating 4 mg PO Q6H PRN nausea and 04/08/25 tablet vomiting #14 tabs Allergies Allergy/AdvReac Type Severity Reaction Status Date / Time Sulfa (Sulfonamide Allergy hives Verified 05/05/25 10:24 Antibiotics) Review of Systems Narrative: Constitutional symptoms: Negative except as documented in HPI. Skin symptoms: Negative except as documented in HPI. Eye symptoms: Negative except as documented in HPI. ENMT symptoms: Negative except as documented in HPI. Respiratory symptoms: Negative except as documented in HPI. Cardiovascular symptoms: Negative except as documented in HPI. Gastrointestinal symptoms: Negative except as documented in HPI. Genitourinary symptoms: Negative except as documented in HPI. Musculoskeletal symptoms: Negative except as documented in HPI. Neurologic symptoms: Negative except as documented in HPI. Psychiatric symptoms: Negative except as documented in HPI. Endocrine symptoms: Negative except as documented in HPI. PFSH ED PFSH: Medical History (Updated 05/05/25 @ 15:26 by Niharika George MD) Anxiety and depression Weight gain Hx of basal cell carcinoma Macular degeneration Burning mouth syndrome Surgical History History of left knee replacement 03/2025 - Dr Vishal Shannon Hx of cataract surgery History of lobectomy of lung Right upper lobe removed - Pimentel - 03/2023 H/O knee surgery Right knee replacement - 08/2024 Hx laparoscopic cholecystectomy History of hysterectomy Family History Father Cancer Stomach Alcoholic Grandmother Cancer Colon Cancer Social History Smoking and tobacco/nicotine status: never used tobacco/nicotine Quit status (tobacco/nicotine): has quit using Year quit tobacco: 1989 Former quit date comment: 5 pack years Alcohol intake: never Physical Exam Narrative: EXAM NARRATIVE: General: Alert, no acute distress. Skin: Warm, dry. Head: Normocephalic, atraumatic. Neck: Supple, trachea midline. Eye: Extraocular movements are intact. Ears, nose, mouth and throat: Tacky oral mucosa Cardiovascular: Regular, Normal peripheral perfusion. Respiratory: Lungs are clear to auscultation, respirations are non-labored, breath sounds are equal, Symmetrical chest wall expansion. Gastrointestinal: Soft, moderate lower abdominal tenderness, Non distended Musculoskeletal: Normal ROM, no deformity. Neurological: Alert and oriented, No focal neurological deficit observed. Psychiatric: Cooperative, appropriate mood & affect. Course Vital Signs: Vital signs: Vital Signs Temperature 97.7 F 05/05/25 12:00 Pulse Rate 79 05/05/25 15:30 Respiratory Rate 18 05/05/25 12:00 Blood Pressure 171/63 05/05/25 15:30 Pulse Oximetry 95 05/05/25 15:30 Oxygen Delivery Me thod Room Air 05/05/25 15:30 MDM - Abdominal Pain Medical Decision Making Medical decision making: Patient's reason for coming to the emergency room: Nausea vomiting and abdominal pain. Social determinants: Patient seems to struggle with severe anxiety. This waited on my decision to admit her. She is retired and . I reviewed the patient's medical record. 80-year-old female with a history of anxiety and depression, insomnia, chronic clonazepam therapy, chronic constipation and hypertension I reviewed the patient's current home meds I reviewed the patient's prescription monitoring program. She receives monthly clonazepam and quite frequent oxycodone. She takes medications for blood pressure at home as well. Alternate historians: None Differential diagnosis for this patient with nausea and vomiting including but not limited to and based on the above HPI, review of systems and physical exam: Urinary tract infection. Appendicitis. Cholecystitis. Colitis. small bowel obstruction. crohn's flare. pancreatitis. gastritis. peptic ulcer. cyclic vomiting. Viral illness. Influenza. COVID. Orders placed to evaluate differential diagnosis based on the above differential, HPI and physical exam Lab Review: Laboratory results were reviewed and interpreted by myself the emergency room physician. No leukocytosis. No anemia. No renal failure. Urinalysis is negative for infection. Urine does appear somewhat concentrated which would indicate some dehydration. Abdomen x-ray: Possible ileus and dehydration. A CT was ordered to further evaluate. No evidence of free air or obstruction. This was reviewed and interpreted by myself the emergency room physician. I also reviewed the radiology report. CT of the abdomen pelvis with contrast: Fairly severe colitis. Possibly diverticulitis. The radiologist called me and reported the results to me. I have also reviewed the films personally. Assessment of risk: - Level of risk moderate - Was hospitalization considered? Yes patient is being admitted. Reexamination: Patient remains quite anxious. She is tearful whenever we discuss being admitted. No oxygen requirements. No altered mental status. No focal motor deficits. Consultation: I spoke with Dr. Ramirez who is on-call for the hospitalist service who agrees to admission. Assessment and plan: Colitis Dehydration Vomiting Constipation Anxiety ?Normal saline bolus, IV Ativan, IV Cipro and Flagyl, IV Zofran -I discussed the patient with the hospitalist on-call who is admitting the patient. - Discussed findings and plan with patient. Answered any questions. - All laboratory values were reviewed and interpreted personally by myself, the ER physician - All imaging was reviewed and interpreted personally by myself, the ER physician. - Evaluation and treatment of this problem were appropriate in the emergency setting Lab Data 05/05/25 12:26 05/05/25 12:26 Labs/Radiology: Radiology Impressions Abdomen X-Ray 05/05/25 12:10 Impression: Moderate generalized ileus. Abdomen/Pelvis CT 05/05/25 13:43 IMPRESSION: 1. Diffuse prominent thickening of the sigmoid colon with some surrounding inflammatory changes and induration worse in the pelvis. Extensive diverticulosis. Findings suspicious for acute diverticulitis or a distal colitis. This is new from previous. 2. No drainable abscess or fluid collection. 3. RIGHT colon constipation slightly improved but similar to previous. 4. Urine distended bladder. 5. Evidence of gastritis and duodenitis. 6. Prior cholecystectomy and hysterectomy 7. No other acute findings. Notified Niharika George MD at 05/05/2025 3:06 PM. Laboratory Results WBC 8.11 10^3/uL (3.29-11.43) 05/05/25 12: RBC 4.82 10^6/uL (3.85-5.65) 05/05/25 12: Hgb 12.40 g/dL (11.27-16.99) 05/05/25 12: Hct 40.2 % (36-47) 05/05/25 12: MCV 83.4 fl (85-98) L 05/05/25 12: MCH 25.7 pg (27-33) L 05/05/25 12: MCHC 30.8 g/dL (30-55) 05/05/25 12: RDW 14.1 % (12.1-15.1) 05/05/25 12: Plt Count 177 10^3/cmm (157-399) 05/05/25 12: MPV 13.1 fL (7.4-10.4) H 05/05/25 12: Neut % (Auto) 69.0 % 05/05/25 12: Lymph % (Auto) 18.9 % 05/05/25 12: [place] % (Auto) 11.7 % 05/05/25 12: Eos % (Auto) 0.1 % 05/05/25 12: Baso % (Auto) 0.1 % 05/05/25 12: Neut # (Auto) 5.59 10^3/uL (1.8-7.7) 05/05/25 12: Lymph # (Auto) 1.5 10^3/uL (0.8-4.8) 05/05/25 12: [place] # (Auto) 1.0 10^3/uL (0.2-0.9) H 05/05/25 12: Eos # (Auto) 0.0 10^3/uL (0.0-0.8) 05/05/25 12: Baso # (Auto) 0.0 10^3/uL (0.0-0.1) 05/05/25 12: Nucleated RBC % (auto) 0 % 05/05/25 12: Nucleated RBCs # 0.0 /100WBC 05/05/25 12: Sodium 135 mmol/L (136-145) L 05/05/25 12: Potassium 4.4 mmol/L (3.5-5.1) 05/05/25 12: Chloride 97 mmol/L (98-107) L 05/05/25 12: Carbon Dioxide 23 mmol/L (22-29) 05/05/25 12: Anion Gap 19.4 (5-19) H 05/05/25 12: BUN 8 mg/dL (8-23) 05/05/25 12: Creatinine 0.6 mg/dL (0.5-0.9) 05/05/25 12: GFR Calculation Not Reportable 05/05/25 12: Glucose 103 mg/dL (65-115) 05/05/25 12: Calculated Osmolality 279 mOsm/kg (285-295) L 05/05/25 12: Lactic Acid 1.4 mmol/L (0.5-2.2) 05/05/25 12: Calcium 10.2 mg/dL (8.5-10.5) 05/05/25 12: Total Bilirubin 0.8 mg/dL (0.15-1.2) 05/05/25 12: AST 17 U/L (0-32) 05/05/25 12: ALT 10 U/L (0-33) 05/05/25 12: Alkaline Phosphatase 118 U/L (35-105) H 05/05/25 12: C-Reactive Protein 3.0 mg/L (0.0-4.9) 05/05/25 12: Total Protein 7.7 g/dL (6.6-8.7) 05/05/25 12: Albumin 4.9 g/dL (3.5-5.2) 05/05/25 12: Globulin 2.8 g/dL (1.3-4.6) 05/05/25 12: Lipase 28 U/L (13-60) 05/05/25 12:26 Urine Color Yellow (Yellow) 05/05/25 15:00 Urine Appearance Clear (CLEAR) 05/05/25 15:00 Urine pH 7.0 (5-7) 05/05/25 15:00 Ur Specific Nec[place] 1.018 (1.005-1.030) 05/05/25 15:00 Urine Protein Negative (Negative) 05/05/25 15:00 Urine Glucose (UA) Negative (Normal) 05/05/25 15:00 Urine Ketones Negative (Negative) 05/05/25 15:00 Urine Blood Negative (Negative) 05/05/25 15:00 Urine Nitrate Negative (Negative) 05/05/25 15:00 Urine Bilirubin Negative (Negative) 05/05/25 15:00 Urine Urobilinogen 0.2 mg/dL (Negative) 05/05/25 15:00 Ur Leukocyte Esterase Negative (Negative) 05/05/25 15:00 Urine RBC 0-2 /hpf (0-2) 05/05/25 15:00 Urine WBC 0-5 /hpf (0-5) 05/05/25 15:00 Ur Squamous Epith Cells 0-5 /hpf (0-5) 05/05/25 15:00 Amorphous Sediment Not Reportable 05/05/25 15:00 Urine Bacteria None seen /hpf (NONE) 05/05/25 15:00 Hyaline Casts 0-4 /lpf H 05/05/25 15:00 All radiology interpretation(s) finalized by discharge Discharge Plan Discharge Patient Disposition: Admitted As Inpatient Clinical Impression: Colitis, Constipation, Dehydration, Vomiting, Anxiety Condition: Stable 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
[2025-05-05 12:55] LABS: Slide Review Slide Review Perform
[2025-05-05 13:10] LABS: Lactic Sepsis W/Reflex 1.4 mmol/L (0.5-2.2)
[2025-05-05 13:11] LABS: Alanine Aminotransferase 10 U/L (0-33); Albumin Level 4.9 g/dL (3.5-5.2); Alkaline Phosphatase 118 U/L (35-105); Anion Gap 19.4 (5-19); Aspartate Amino Transferase 17 U/L (0-32); Blood Urea Nitrogen 8 mg/dL (8-23); Calcium 10.2 mg/dL (8.5-10.5); Carbon Dioxide 23 mmol/L (22-29); Chloride 97 mmol/L (98-107); Creatinine Clr Calc Pharmacy 55.7936; Globulin 2.8 g/dL (1.3-4.6); Glucose 103 mg/dL (65-115); Lipase 28 U/L (13-60); Osmolality Calculated 279 mOsm/kg (285-295); Potassium 4.4 mmol/L (3.5-5.1); Sodium 135 mmol/L (136-145); Total Protein 7.7 g/dL (6.6-8.7)
--- NOTE | 2025-05-05 13:43 | CT_ITS ---
WS: [id number] CT ABDOMEN PELVIS TECHNIQUE: Contrast-enhanced CT of the abdomen and pelvis with coronal and sagittal reformatted images. CLINICAL INFORMATION: Ileus COMPARISON: 04/08/2025 DLP: 381.[address] scans at [facility] use at least one of these dose optimization techniques: automated exposure control; mA and/or kV adjustment per patient size (includes targeted exams where dose is matched to clinical indication); or iterative reconstruction. FINDINGS: Prior cholecystectomy and hysterectomy. Diffuse thickening of the sigmoid colon. Diverticulosis. Diffuse thickening of the sigmoid colon suspicious diverticulitis. Mild surrounding inflammatory changes and induration. No drainable abscess or fluid collection. Fecal retention in the RIGHT colon. Transverse colon is decompressed. Small esophageal hiatal hernia. Evidence of gastritis and duodenitis. Lung bases are well aerated. Fatty liver. Portal vein and splenic vein are patent. Mild intrahepatic biliary ductal dilatation likely physiologic postcholecystectomy. Normal caliber abdominal aorta. Aortic calcification. Celiac and SMA are patent. Urine distended bladder. Advanced spondylitic changes lumbar spine. CT/CT abdomen pelvis w con* [id number] IMPRESSION: 1. Diffuse prominent thickening of the sigmoid colon with some surrounding inf lammatory changes and induration worse in the pelvis. Extensive diverticulosis. Findings suspicious for acute diverticulitis or a distal colitis. This is new from previous. 2. No drainable abscess or fluid collection. 3. RIGHT colon constipation slightly improved but similar to previous. 4. Urine distended bladder. 5. Evidence of gastritis and duodenitis. 6. Prior cholecystectomy and hysterectomy 7. No other acute findings. Notified Niharika George MD at 05/05/2025 3:06 PM.
[2025-05-05] MEDS: iohexol 350 mg/mL 500 mL Btl (per mL) IV (14:06)
[2025-05-05 15:16] LABS: Glucose Urine UA Negative (Normal); Nitrate Urine Negative (Negative); Specific Gravity, Urine 1.018 (1.005-1.030)
[2025-05-05] MEDS: ondansetron 2 mg/ML SDV 2 mL 4 MG IVP (15:46)
[2025-05-05] MEDS: LORazepam 1 MG/0.5 ML injection IVP (15:51)
--- NOTE | 2025-05-05 16:02 | PC.NURSE ---
Pt states she doesnt want to take the magnesium citrate until she is able to talk to her doctor about any alternatives.
[2025-05-05] MEDS: metroNIDAZOLE IV 500 MG/100 ML PREMIX 100 MG IV (16:43)
--- NOTE | 2025-05-05 17:19 | PM.HP ---
Providers/Chief Complaint Admitting Physician: Prosper Ramirez MD Primary Care Provider: Abdoul Robles MD Chief Complaint: N/V/D constapation History of Present Illness Amaris Romero is a 80 year old female also well with history of chronic constipation depression insomnia. She had been on pain meds with her last surgery which is a left knee replacement March[address] Rodgers at [facility]. He had a right knee performed August 2024. Patient states that after stopping the pain medication she had more constipation. She was having bowel movements just once every 4 to 7 days. She felt abdominal cramps nausea vomiting within the last 2 weeks could not eat much. Patient reports past surgical history as follows open cholecystectomy with [facility] at age 37 for cholecystitis and fibroid cyst in the uterus. She is not sure if the other ovary was also removed or not. She denies past bowel obstruction. She is also had both knees replaced. Right upper lobectomy for nodules was benign this was last year in [place]. Patient states she is still following with oncology who is doing a PET scan and 6-month follow-ups despite the patient's lung resection pathology and lymph nodes all being negative for cancer. Patient reports 3 attempted colonoscopies in the past the worst 1 was at [facility] with Dr. Hills who tried to complete it but it was extremely painful and though she was supposed to be asleep she was not asleep. She states she had a successful sigmoidoscopy in [place] and a successful sigmoidoscopy in [place] more recently she also had some sort of CT scan test. Review of Systems Narrative: General 15 pounds weight loss no fevers chills Cardiovascular positive for hypertension no chest pain palpitations or OK Respiratory no shortness of breath cough wheezing GI no blood in stool or vomit she has vomited multiple times in the last couple weeks she has had intermittent abdominal pain and cramping with constipation bowel movements every 4 to 7 days and some alternating diarrhea. no dysuria hematuria she did have multiple urinary tract infections last year [facility] no vaginal bleeding or discharge Neuro no seizures strokes limb weakness Medications/Allergies Home Medications ?Medication ?Instructions ?Recorded ?Confirmed ?Last Taken ?Type clonidine HCl 0.1 mg tablet 0.1 mg PO Q6H PRN for blood 12/28/24 05/05/25 Unknown Rx pressure greater than 160/110 #30 tabs ketorolac 10 mg tablet 10 mg PO TID PRN pain #10 tabs 04/08/25 05/05/25 05/04/25 Rx ondansetron 4 mg disintegrating 4 mg PO Q6H PRN nausea and 04/08/25 05/05/25 Unknown Rx tablet vomiting #14 tabs atenolol 25 mg tablet 25 mg PO QAM high blood pressure 05/05/25 05/05/25 Unknown History ciprofloxacin HCl 500 mg tablet 500 mg PO Q12H 05/05/25 05/05/25 Unknown History clonazepam 1 mg tablet 1 mg PO BID PRN Anxiety 05/05/25 05/05/25 05/04/25 History lactobacillus combination no.4 3 3,000 mmu cells PO DAILY 05/05/25 05/05/25 05/05/25 History billion cell capsule (Probiotic) losartan 50 mg tablet 50 mg PO QAM 05/05/25 05/05/25 05/05/25 History metronidazole 500 mg tablet 500 mg PO Q8H 05/05/25 05/05/25 Unknown History venlafaxine 75 mg capsule,extended 75 mg PO QAM 05/05/25 05/05/25 05/05/25 History release 24 hr Allergies Allergy/AdvReac Type Severity Reaction Status Date / Time Sulfa (Sulfonamide Allergy hives Verified 05/05/25 10:24 Antibiotics) PFSH Acute PFSH: Medical History (Updated 05/05/25 @ 17:30 by Prosper Ramirez MD) Bowel habit changes Anxiety and depression Weight gain Hx of basal cell carcinoma Macular degeneration Burning mouth syndrome Surgical History History of left knee replacement 03/2025 - Dr Vishal Shannon Hx of cataract surgery History of lobectomy of lung Right upper lobe removed - Pimentel - 03/2023 H/O knee surgery Right knee replacement - 08/2024 Hx laparoscopic cholecystectomy History of hysterectomy Family History Father Cancer Stomach Alcoholic Grandmother Cancer Colon Cancer Social History (Updated 05/05/25 @ 17:28 by Prosper Ramirez MD) Smoking and tobacco/nicotine status: former use of tobacco/nicotine Quit status (tobacco/nicotine): has quit using Year quit tobacco: 1989 Former quit date comment: 5 pack years Alcohol intake: never Substance/Drug Use: never Additional social history: 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 CODE STATUS as discussed today with Prosper Ramirez MD on 05/05/2025 Vitals/I&O/Wt Last Vital Signs Temp 97.7 F 05/05/25 12:00 Pulse 89 05/05/25 17:00 Resp 18 05/05/25 12:00 BP 175/94 05/05/25 17:00 Pulse Ox 97 05/05/25 17:00 O2 Del Method Room Air 05/05/25 17:00 05/05/25 05/05/25 05/05/25 06:59 14:59 22:59 Intake Total 1000 / 1000 Balance 1000 / 1000 Weight last 48 hrs Weight 63.503 kg Physical Exam Narrative: General well-developed well-nourished female no acute cardiopulmonary stress CV regular rate and rhythm Lungs clear to auscultation bilaterally Abdomen positive bowel tones soft nontender Oropharynx Mallampati 1 no exudate Calves no tenderness cords or pretibial edema Mood and affect normal pleasant Data 05/05/25 12:26 05/05/25 12:26 Micro: Microbiology 05/05/25 16:14 Blood Culture - Preliminary Blood SPECIMEN COLLECTED 05/05/25 16:14 Blood Culture - Preliminary Blood SPECIMEN COLLECTED A&P Assessment and plan 1. Constipation: Patient was prescribed mag citrate in the emergency department but she refused because she states that she vomited when taking that at home. Will start her on 1500 cc of GoLytely. She was counseled that she needs her bowel cleaned for further further imaging If patient has nausea vomiting we will consider further imaging with contrast, NG tube or surgical consultation. 2. Bowel habit changes: Patient had failed colonoscopies. Consider CT colonography PDMP PDMP Reviewed: Not Reviewed Attestations Medical Necessity Statement*: Patient admitted to observation and will require 1-2 midnights Coding Level of Care Code 07676 Diagnoses Constipation K59.00 Bowel habit changes R19.4 Time Spent (min) 70
[2025-05-05 18:03] LABS: Ferritin 164 ng/mL (15-150); Iron 23 ug/dL (37-145); Total Iron Binding Capacity 379 mcg/dl; Unsaturated Iron Binding 356 ug/dL (112-347)
[2025-05-05] MEDS: peg /e-lyte soln 4,000 mL Btl 1500 ML PO (21:00)
[2025-05-06] VITALS: BP 145/75; PULSE 80; RESP 20; TEMP 36.4; O2SAT 96
[2025-05-06 03:59] VITALS: BP 127/58; PULSE 94; RESP 16; TEMP 36.3; O2SAT 96
[2025-05-06] MEDS: venlafaxine ER (24HR) 75 mg Capsule PO (05:12)
[2025-05-06 05:13] VITALS: BP 127/58
--- OUTSIDE RECORDS SUMMARY | 2025-05-06 07:42 | XMS_ITS | Encounter Summary ---
[facility] Organization [facility] Address [address] [place] [address] Care Team Providers Care Pumper Helper Name Role Phone Unavailable Primary Care Provider [...] Description 03/16/2026 1:40 PM CDT Office Visit [facility] - Orthopedic [facility] [address] [place] [phone] Saira Garza PA [address] [place] [phone] documented as of this encounter Visit Diagnoses Not on filedocumented in this encounter
--- OUTSIDE RECORDS SUMMARY | 2025-05-06 07:43 | XMS_ITS | Clinical Summary ---
Author Organization [facility] Address [address] [place] [address] Care Team Providers Care Senior Civil Engineer Name Role Phone Unavailable Primary Care [...] Abstract 04/25/2025 1:40 PM CDT Office Visit [place] [address] [place] [address] Saira Garza, ISSA S/P revision of total knee, left (Primary Dx) 04/25/2025 12:25 PM CDT Ancillary Procedure [place] [address] [place] [address] Tacho Rodgers MD Status post total left knee replacement 04/21/2025 Orders Only [place] [address] [place] [address] Tacho Rodgers MD Status post total left knee replacement (Primary Dx) 04/12/2025 Orders Only [facility] [address] [place] [address] Tacho Rodgers MD Status post total left knee replacement (Primary Dx) 03/24/2025 Refill [facility] [address] [place] [address] Tacho Rodgers MD Primary osteoarthritis of left knee 03/21/2025 Telephone [place] [address] [place] [phone] Tacho Rodgers MD Information 03/21/2025 Telephone [facility] Case Management [address] [place] [address] Tacho Rodgers MD Hospital Follow Up 03/19/2025 [facility] Case Management [address] [place] [address] Tacho Rodgers MD Hospital Follow Up (Day 3) 03/15/2025 11:54 AM CDT - 03/15/2025 1:23 PM CDT Surgery [facility] Operating Room [address] [place] [address] Tacho Rodgers MD KNEE ARTHROPLASTY TOTAL REPLACEMENT 03/15/2025 11:47 AM CDT Anesthesia Event [facility] Operating Room [address] [place] [address] Zack Ding MD Crabtree, Chris-Anne, CRNA 03/15/2025 8:45 AM CDT - 03/16/2025 2:21 PM CDT Hospital Encounter [facility] Inpatient [address] [place] [address] Tacho Rodgers MD Status post total left knee replacement Discharge Disposition: Home or Self Care 03/15/2025 External Device Data STL ABSTRACTION Provider, Abstract 2025 External Device Data Initial Department [address] [facility] [address] [address] ROBERTS: [place] [address] Yuniel EmergencyMd 03/02/2025 External Device Data STL ABSTRACTION Provider, Abstract 02/22/2025 3:12 PM CDT - 02/22/2025 11:59 PM CDT Hospital Encounter [facility] [address] [place] [address] Celso Tate MD Discharge Disposition: Home or Self Care 02/22/2025 1:53 PM CDT - 02/22/2025 11:59 PM CDT Hospital Encounter [facility] [address] [place] [address] Tacho Rodgers MD Discharge Disposition: Home or Self Care 02/22/2025 Travel 02/16/2025 External Device Data Initial Department [address] KAUFMANN: [place] [address] Yuniel White Md from Last 3 Months [...] 03/16/2026 1:40 PM CDT Office Visit [facility] [address] [place] [phone] Saira Garza, ISSA [address] [place] [phone] Health Maintenance Due Date Last Done Comments DTAP/TDAP/TD VACCINES (1 - Tdap) 1966 PNEUMOCOCCAL VACCINE 50+ YEA RS (1 of 1 - PCV) 1997 ZOSTER VACCINE (1 of 2) 1997 OSTEOPOROSIS SCREENING 2012 RSV VACCINE (60+ or ) (1 - 1-dose 75+ series) 2022 INFLUENZA VACCINE (#1) 2025 COVID-19 Vaccine (3 - season) 2025, 12/25/2020 Medical Devices Implanted Type Area Manager Investment Device Identifier Shelf Expiration Date Model / Serial / Lot Comp Fem Attune Poro Cr Sz 6n Rt Cmntlss 1504-01-226 - [id number] Implanted:Qty: 1 on 09/07/2024 by Tacho Rodgers MD at [facility] Knee Right: Knee [employer] [id number] 01/10/2034 1504- / / [id number] Baseplate Tib Attune Fxd Bearing Sz5 1506-21-005 - [id number] Implanted:Qty: 1 on 09/07/2024 by Tacho Rodgers MD at [facility] Knee Right: Knee [employer] [id number] 12/11/2032 1506-21-005 / / [id number] Baseplate Tib Attune Fxd Bearing Sz 6 [id number] - [id number] Implanted:Qty: 1 on 03/15/2025 by Tacho Rodgers MD at [facility] Knee Left: Knee [employer] [id number] 06/12/2032 [id number] / / [id number] Comp Fem Attune Poro Cr Sz 6n Lt Nrw Cmntlss 1504-01-126 - [id number] Implanted:Qty: 1 on 03/15/2025 by Tacho Rodgers MD at [facility] Knee Left: Knee [employer] [id number] 11/10/2034 [id number] / / [id number] Insert Tib Attune Aox Fb Medial Stblzd Sz6 7mm Lt 1518-20-607 - [id number] Implanted:Qty: 1 on 03/15/2025 by Tacho Rodgers MD at [facility] Knee Left: Knee [employer] [id number] 01/10/2033 1518-20-607 / / [id number] Ins Tib Attune 6x6mm Knee Implanted:Qty: 1 on 09/07/2024 by Tacho Rodgers MD at [facility] Right: Knee [id number] 08/13/2030 [id number] / / [id number] Procedures Procedure Name Priority [...] - 10.8 K/uL 03/16/2025 6:22 AM CDT [facility] RBC 3.73(L) 4.20 - 5.40 M/uL 03/16/2025 6:22 AM CDT [facility] HEMOGLOBIN 10.6(L) 12.0 - 16.0 g/dL 03/16/2025 6:22 AM [facility] HEMATOCRIT 33.8(L) 36.0 - 46.0 % 03/16/2025 6:22 AM CDT [facility] MCV 90.6 84.0 - 103.0 fL 03/16/2025 6:22 AM CDT [facility] MCH 28.4(L) 31.0 - 37.0 pg 03/16/2025 6:22 AM CDT [facility] MCHC 31.4 30.0 - 35.0 g/dL 03/16/2025 6:22 AM [facility] PLATELETS 143 140 - 440 K/uL 03/16/2025 6:22 AM CDT [facility] MPV 14.3(H) 8.9 - 12.8 fL 03/16/2025 6:22 AM CDT [facility] RDW 13.9 11.0 - 14.5 % 03/16/2025 6:22 AM CDT [facility] RDW-STDEV 46.4 37.0 - 54.0 fL 03/16/2025 6:22 AM [facility] NEUTROPHILS 87(H) 42 - 75 % 03/16/2025 6:22 AM CDT [facility] LYMPHOCYTES 4(L) 24 - 44 % 03/16/2025 6:22 AM CDT [facility] MONOCYTES 8 2 - 10 % 03/16/2025 6:22 AM CDT [facility] EOSINOPHILS 0 0 - 7 % 03/16/2025 6:22 AM CDT [facility] BASOPHILS 0 0 - 1 % 03/16/2025 6:22 AM CDT [facility] IMMATURE GRANULOCYTES 0 0 - 2 % 03/16/2025 6:22 AM CDT [facility] NEUTROPHIL ABSOLUTE 16.79(H) 2.00 - 8.00 K/uL 03/16/2025 6:22 AM CDT [facility] LYMPHOCYTE ABSOLUTE 0.77(L) 1.20 - 4.00 K/uL 03/16/2025 6:22 AM CDT [facility] MONOCYTE ABSOLUTE 1.63(H) 0.10 - 0.60 K/uL 03/16/2025 6:22 AM CDT [facility] EOSINOPHIL ABSOLUTE 0.01 0.00 - 0.70 K/uL 03/16/2025 6:22 AM CDT [facility] BASOPHILS ABSOLUTE 0.03 0.00 - 0.20 K/uL 03/16/2025 6:22 AM CDT [facility] IMMATURE GRANULOCYTES ABSOLUTE 0.06 0.00 - 0.10 K/uL 03/16/2025 6:22 AM CDT [facility] SMEAR REVIEWED: NA - Not Applicable 03/16/2025 6:22 AM CDT [facility] Blood Venipuncture / Unknown 03/16/2025 4:37 AM CDT 03/16/2025 5:55 AM CDT us Evans [facility] HEMATOLOGY ORDERABLES Final Re sult [facility] CLIA #[id number] [address] [place] [address] * (ABNORMAL) BASIC METABOLIC PANEL (03/16/2025 4:37 AM CDT) SODIUM 142 136 - 145 mmol/L 03/16/2025 6:30 AM T [facility] POTASSIUM 4.1 3.4 - 4.5 mmol/L 03/16/2025 6:30 AM T [facility] CHLORIDE 103 98 - 107 mmol/L 03/16/2025 6:30 AM T [facility] CO2 22 22 - 29 mmol/L 03/16/2025 6:30 AM T [facility] CALCIUM 8.9 8.6 - 10.0 mg/dL 03/16/2025 6:30 AM T [facility] BUN 16 8 - 23 mg/dL 03/16/2025 6:30 AM [facility] CREATININE 0.60 0.51 - 0.95 mg/dL 03/16/2025 6:30 AM [facility] Comment:The GFR result is no t clinically significant on patients <18 or >70 years of age. GLUCOSE 134(H) 74 - 99 mg/dL 03/16/2025 6:30 AM [facility] GFR >60 mL/min/1.7 3 sq meter 03/16/2025 6:30 AM [facility] Comment:eGFR calculated with 2020 CKD-EPI equation. Vegetarian diet, extremely high or low muscle mass, and may affect results. Cystatin C with Glomerular Filtration Rate is a suitable alternative for these patients. ANION GAP 17 9 - 20 mmol/L 03/16/2025 6:30 AM T [facility] Blood Venipuncture / Unknown 03/16/2025 4:37 AM CDT 03/16/2025 5:55 AM CDT us Evans [facility] CHEMISTRY ORDERABLES Final Res ult [facility] CLIA #[id number] [address] [address] * (ABNORMAL) POC GLUCOSE (03/15/2025 3:15 PM CDT) Only the most recent of2 resultswithin the time period is included. GLUCOSE POC 140(H) 74 - 99 mg/dL 03/15/2025 3:15 PM CDT [facility] SPECIMEN SOURCE, GLUCOSE POC Whole Blood 03/15/2025 3:15 PM CDT [facility] Blood, whole 03/15/2025 3:15 PM CDT 03/15/2025 3:24 PM CDT Tacho Rodgers MD POINT OF CARE TESTING F inal Result [facility] CLIA #[id number] [address] [address] * XR KNEE 1 OR 2 VW [...] Approach: Midline Location: L3-4 Injection Technique: Single-shot [facility] Identification: palpation technique Number of Attempts: 2 [...] - 145 mmol/L 02/22/2025 3:50 PM CDT [facility] POTASSIUM 3.9 3.4 - 4.5 mmol/L 02/22/2025 3:50 PM CDT [facility] CHLORIDE 99 98 - 107 mmol/L 02/22/2025 3:50 PM CDT [facility] CO2 24 22 - 29 mmol/L 02/22/2025 3:50 PM CDT [facility] CALCIUM 9.5 8.6 - 10.0 mg/dL 02/22/2025 3:50 PM CDT [facility] BUN 13 8 - 23 mg/dL 02/22/2025 3:50 PM CDT [facility] CREATININE 0.67 0.51 - 0.95 mg/dL 02/22/2025 3:50 PM CDT [facility] Comment:The GFR result is no t clinically significant on patients <18 or >70 years of age. GLUCOSE 93 74 - 99 mg/dL 02/22/2025 3:50 PM CDT [facility] Comment:Reference range appl ies to fasting patients only. TOTAL PROTEIN 7.2 6.6 - 8.7 g/dL 02/22/2025 3:50 PM CDT [facility] ALBUMIN 4.3 4.0 - 4.9 g/dL 02/22/2025 3:50 PM CDT [facility] BILIRUBIN TOTAL 0.9 0.0 - 1.0 mg/dL 02/22/2025 3:50 PM CDT [facility] ALKALINE PHOSPHATASE 108(H) 35 - 104 U/L 02/22/2025 3:50 PM CDT [facility] AST 17 5 - 32 U/L 02/22/2025 3:50 PM CDT [facility] ALT 10 5 - 33 U/L 02/22/2025 3:50 PM T [facility] GFR >60 mL/min/1.7 3 sq meter 02/22/2025 3:50 PM CDT [facility] Comment:eGFR calculated with 2020 CKD-EPI equation. Vegetarian diet, extremely high or low muscle mass, and may affect results. Cystatin C with Glomerular Filtration Rate is a suitable alternative for these patients. ANION GAP 12 9 - 20 mmol/L 02/22/2025 3:50 PM CDT [facility] Blood Venipuncture / Unknown 02/22/2025 3:20 PM CDT 02/22/2025 3:25 PM CDT us Celso Tate MD CHEMISTRY ORDERABLES Final Resu lt [facility] CLIA #[id number] [address] [id number] * EKG 12-LEAD (02/22/2025 3:16 PM CDT) 02/22/2025 3:16 PM CDT Narrative INTERFACE SYSTEM - 02/22/2025 8:59 PM CDT [facility] [address] [place] [address] Test Date: 2025-02-22 Pat Name: AMARIS GERBER Department: 50 Room: Gender: Female Corn Husk Baler: nancy : 1945 Requested By: Order Number: [id number] Reading : Serg Nicolas Measurements Intervals [place] Rate: 71 P: 46 SC: 176 QRS: -36 QRSD: 102 T: 46 QT: 386 QTc: 419 Interpretive Statements Sinus rhythm with frequent premature ventricular complexes Left axis deviation Moderate voltage criteria for LVH, may be normal variant ( R in aVL, Leonardo product ) Abnormal ECG Electronically Signed On 02-22-2025 20:59:29 CDT by Serg Nicolas Procedure Note Serg Nicolas MD - 02/22/2025 [place] [address] [place] [address] Test Date: 2025-02-22 Pat Name: AMARIS GERBER Department: 50 Room: Gender: Female Corn Husk Baler: enzo : 1945 Requested By: Order Number: [id number] Reading EDWIN Nicolas Measurements Intervals [place] Rate: 71 P: 46 SC: 176 QRS: [...] department from Last [address] [place] [address] MEDICARE PART A AND B FOR LIFE [address] [place] [address] [employer]
[2025-05-06 08:01] VITALS: BP 118/71; PULSE 83; RESP 17; TEMP 36.3; O2SAT 96
--- NOTE | 2025-05-06 08:49 | PC.SOCIAL ---
IMM Updated Updated pt on IMM. No questions voiced. Provided pt a copy. Initialed, dated, & timed a copy & placed in chart.
--- NOTE | 2025-05-06 12:06 | P.DS_ITS ---
Discharge Providers Date of Admission: 05/05/25 18:00 Date of Discharge: May 06, 2025 Attending Provider at Admission: Prosper Ramirez MD Attending Provider at Discharge: Prosper Ramirez MD Primary Care Provider: Abdoul Robles MD Diagnoses at Discharge Discharge Diagnosis 1. Constipation: Details from hospital stay: Resolved acutely but this is a chronic problem with redundant bowel and iron deficiency anemia. This is concerning for possible mass. See below patient is recommended for CT colonography and Cologuard type test due to inability to do colonoscopy 2. Bowel habit changes: Details from hospital stay: Plan CT colonography outpatient however that cannot be done here. Will try to order a Cologuard type test as well 3. Iron deficiency anemia: Details from hospital stay: Start iron replacement 325 mg p.o. twice daily start iron if start iron replac ement 325 mg ferrous sulfate twice daily and follow-up outpatient. Bowel regimen to help prevent further constipation episodes Reason for Visit Reason for Visit: N/V/D constapation Brief History: Amaris Romero is a 80 year old female also well with history of chronic constipation depression insomnia. She had been on pain meds with her last surgery which is a left knee replacement March[address] Rodgers at [facility]. He had a right knee performed August 2024. Patient states that after stopping the pain medication she had more constipation. She was having bowel movements just once every 4 to 7 days. She felt abdominal cramps nausea vomiting within the last 2 weeks could not eat much. Patient reports past surgical history as follows open cholecystectomy with [facility] at age 37 for cholecystitis and fibroid cyst in the uterus. She is not sure if the other ovary was also removed or not. She denies past bowel obstruction. She is also had both knees replaced. Right upper lobectomy for nodules was benign this was last year in [place]. Patient states she is still following with oncology who is doing a PET scan and 6-month follow-ups despite the patient's lung resection pathology and lymph nodes all being negative for cancer. Patient reports 3 attempted colonoscopies in the past the worst 1 was at [facility] with Dr. Hills who tried to complete it but it was extremely painful and though she was supposed to be asleep she was not asleep. She states she had a successful sigmoidoscopy in [place] and a successful sigmoidoscopy in [place] more recently she also had some sort of CT scan test. Hospital Course Hospital Course Patient noted to have iron deficiency anemia iron 23% sat 6 unsaturated iron binding 356 ferritin 164. She has had constipation unable to be evaluated fully due to tortuous bowel. She had 10 stools yesterday and feels better. She will be treated empirically with iron repletetion and daily bowel regimen to limit constipation. I counseled her that iron loss in the GI tract is concerning though and she needs to have further imaging. Because she has such a hard time with colonoscopy which is painful, we need to consider other options. The most recommended would be CT colonography but [facility] does not do those. She will need to speak with her PCP and find out where she can be referred for that. Double contrast barium enema would be another option though less sensitive Patient is accompanied by her and is ready for discharge at this time ( Noe Campbell Well) Physical Exam Narrative: General well-developed well-nourished female in no acute cardiopulmonary stress CV regular rate and rhythm Lungs clear to auscultation bilaterally Abdomen positive bowel tones soft nontender no palpable mass Calves no tenderness cords pretibial edema Mentation alert and orient x 3 Discharge Data Studies Completed and Pending Completed Studies During Hospitalization Category Date Time Status CT abdomen pelvis w con* [id number] Stat Cat Scan 05/05/25 13:43 Completed XR abdomen 1V* [id number] Stat Exams 05/05/25 12:10 Completed Pending at discharge Category Date Time Status Blood Culture Stat Lab 05/05/25 16:14 Results Radiology Impressions Abdomen X-Ray 05/05/25 12:10 Impression: Moderate generalized ileus. Abdomen/Pelvis CT 05/05/25 13:43 IMPRESSION: 1. Diffuse prominent thickening of the sigmoid colon with some surrounding inflammatory changes and induration worse in the pelvis. Extensive diverticulosis. Findings suspicious for acute diverticulitis or a distal colitis. This is new from previous. 2. No drainable abscess or fluid collection. 3. RIGHT colon constipation slightly improved but similar to previous. 4. Urine distended bladder. 5. Evidence of gastritis and duodenitis. 6. Prior cholecystectomy and hysterectomy 7. No other acute findings. Notified Niharika George MD at 05/05/2025 3:06 PM. Laboratory Results WBC 8.11 10^3/uL (3.29-11.43) 05/05/25 12: RBC 4.82 10^6/uL (3.85-5.65) 05/05/25 12: Hgb 12.40 g/dL (11.27-16.99) 05/05/25 12: Hct 40.2 % (36-47) 05/05/25 12: MCV 83.4 fl (85-98) L 05/05/25 12: MCH 25.7 pg (27-33) L 05/05/25 12: MCHC 30.8 g/dL (30-55) 05/05/25 12: RDW 14.1 % (12.1-15.1) 05/05/25 12: Plt Count 177 10^3/cmm (157-399) 05/05/25 12: MPV 13.1 fL (7.4-10.4) H 05/05/25 12: Neut % (Auto) 69.0 % 05/05/25 12: Lymph % (Auto) 18.9 % 05/05/25 12: Dolores % (Auto) 11.7 % 05/05/25 12: Eos % (Auto) 0.1 % 05/05/25 12: Baso % (Auto) 0.1 % 05/05/25 12: Neut # (Auto) 5.59 10^3/uL (1.8-7.7) 05/05/25 12: Lymph # (Auto) 1.5 10^3/uL (0.8-4.8) 05/05/25 12: Dolores # (Auto) 1.0 10^3/uL (0.2-0.9) H 05/05/25 12: Eos # (Auto) 0.0 10^3/uL (0.0-0.8) 05/05/25 12: Baso # (Auto) 0.0 10^3/uL (0.0-0.1) 05/05/25 12: Nucleated RBC % (auto) 0 % 05/05/25 12: Nucleated RBCs # 0.0 /100WBC 05/05/25 12: Sodium 135 mmol/L (136-145) L 05/05/25 12: Potassium 4.4 mmol/L (3.5-5.1) 05/05/25 12: Chloride 97 mmol/L (98-107) L 05/05/25 12: Carbon Dioxide 23 mmol/L (22-29) 05/05/25 12: Anion Gap 19.4 (5-19) H 05/05/25 12: BUN 8 mg/dL (8-23) 05/05/25 12: Creatinine 0.6 mg/dL (0.5-0.9) 05/05/25 12: GFR Calculation Not Reportable 05/05/25 12: Glucose 103 mg/dL (65-115) 05/05/25 12: POC Glucose 92 mg/dL (70-110) 05/06/25 06:41 Calculated Osmolality 279 mOsm/kg (285-295) L 05/05/25 12: Lactic Acid 1.4 mmol/L (0.5-2.2) 05/05/25 12: Calcium 10.2 mg/dL (8.5-10.5) 05/05/25 12: Iron 23 ug/dL (37-145) L 05/05/25 12: TIBC 379 mcg/dl 05/05/25 12: % Saturation 6.0 % (20-50) L 05/05/25 12: Unsat Iron Binding 356 ug/dL (112-347) H 05/05/25 12: Ferritin 164 ng/mL (15-150) H 05/05/25 12: Total Bilirubin 0.8 mg/dL (0.15-1.2) 05/05/25 12: AST 17 U/L (0-32) 05/05/25 12: ALT 10 U/L (0-33) 05/05/25 12: Alkaline Phosphatase 118 U/L (35-105) H 05/05/25 12: C-Reactive Protein 3.0 mg/L (0.0-4.9) 05/05/25 12: Total Protein 7.7 g/dL (6.6-8.7) 05/05/25 12: Albumin 4.9 g/dL (3.5-5.2) 05/05/25 12: Globulin 2.8 g/dL (1.3-4.6) 05/05/25 12:26 Lipase 28 U/L (13-60) 05/05/25 12:26 Urine Color Yellow (Yellow) 05/05/25 15:00 Urine Appearance Clear (CLEAR) 05/05/25 15:00 Urine pH 7.0 (5-7) 05/05/25 15:00 Ur Specific [place] 1.018 (1.005-1.030) 05/05/25 15:00 Urine Protein Negative (Negative) 05/05/25 15:00 Urine Glucose (UA) Negative (Normal) 05/05/25 15:00 Urine Ketones Negative (Negative) 05/05/25 15:00 Urine Blood Negative (Negative) 05/05/25 15:00 Urine Nitrate Negative (Negative) 05/05/25 15:00 Urine Bilirubin Negative (Negative) 05/05/25 15:00 Urine Urobilinogen 0.2 mg/dL (Negative) 05/05/25 15:00 Ur Leukocyte Esterase Negative (Negative) 05/05/25 15:00 Urine RBC 0-2 /hpf (0-2) 05/05/25 15:00 Urine WBC 0-5 /hpf (0-5) 05/05/25 15:00 Ur Squamous Epith Cells 0-5 /hpf (0-5) 05/05/25 15:00 Amorphous Sediment Not Reportable 05/05/25 15:00 Urine Bacteria None seen /hpf (NONE) 05/05/25 15:00 Hyaline Casts 0-4 /lpf H 05/05/25 15:00 Vitals Last Vital Signs Temp 97.4 F L 05/06/25 08:01 Pulse 83 05/06/25 08:01 Resp 17 05/06/25 08:01 BP 118/71 05/06/25 08:01 Pulse Ox 96 05/06/25 08:01 O2 Del Method Room Air 05/06/25 08:01 Discharge Plan Discharge Patient Disposition: Home Condition: Stable Prescriptions: New losartan 50 mg Tablet 50 mg PO BID Qty: 60 0RF magnesium hydroxide [Milk of Magnesia] 400 mg/5 mL Suspension 30 ml PO DAILY Qty: 355 0RF Rx Instructions: hold if you have diarrhea docusate calcium 240 mg capsule 240 mg PO BID Qty: 60 0RF polyethylene glycol 3350 [Miralax] 17 gram/dose powder 4 g PO DAILY Qty: 238 0RF ferrous sulfate 324 mg (65 mg iron) tablet,delayed release (DR/EC) 324 mg PO BID Qty: 180 0RF Continued venlafaxine 75 mg capsule,extended release 24hr 75 mg PO QAM clonazepam 1 mg tablet 1 mg PO BID PRN (Reason: Anxiety) atenolol 25 mg tablet 25 mg PO QAM Probiotic 3 billion cell Capsule 3,000 mmu cells PO DAILY Rx Instructions: administer with a meal ondansetron 4 mg tablet,disintegrating 4 mg PO Q6H PRN (Reason: nausea and vomiting) Qty: 14 0RF clonidine HCl 0.1 mg tablet 0.1 mg PO Q6H PRN (Reason: for blood pressure greater than 160/110) Qty: 30 0RF ciprofloxacin HCl 500 mg tablet 500 mg PO Q12H Qty: 4 0RF metronidazole 500 mg tablet 500 mg PO Q8H Qty: 12 0RF Discontinued losartan 50 mg tablet 50 mg PO QAM ketorolac 10 mg tablet 10 mg PO TID PRN (Reason: pain) Qty: 10 0RF Discharge Order = DC NOW: Discharge Order (Routine); Ordered 05/06/25 Ordered By: Prosper Ramirez Referrals: Abdoul Robles MD [Primary Care Provider, [facility]] - 05/13/25 9:50 am Discharge Diet: Cardiac Patient Instructions: Constipation (GEN), Iron Deficiency Anemia (GEN), Opioid Safety, Patient Portal & Shoaib Instructions Discharge Attestations Time Spent in Discharge Care*: greater than 30 min Time Spent in Smoking Cessation: Patient is not a smoker Quality Metrics Clinical Quality Measures [ No reported AMI, CVA or VTE this stay] Coding Level of Care Code 04253 Diagnoses Constipation K59.00 Bowel habit changes R19.4 Iron deficiency anemia D50.9 Time Spent (min) 35
[2025-05-06 12:22] VITALS: BP 143/68; PULSE 80; RESP 17; TEMP 36.6; O2SAT 98
--- NOTE | 2025-05-07 16:12 | PC.NURSE ---
Ellie and Kobe called into [facility] pharmacy today after patient called and came to the floor asking about receiving her medications since [facility] was closed. Patient discharged yesterday.
== END 2025-05-06 13:31 | disposition home or self-care (01) ==
LOC: ER 15:22 → MEDSURG 22:02
PROVIDERS: Admitting Provider Internal Medicine; Emergency Provider Emergency Medicine; PCP Family Medicine; Visit Provider Internal Medicine
DX: D50.9 Iron deficiency anemia, unspecified (principal); K59.00 Constipation, unspecified; F41.8 Other specified anxiety disorders; Z85.828 Personal history of other malignant neoplasm of skin; Z87.891 Personal history of nicotine dependence
CPT/HCPCS: 36415; 36416; 74018; 74177; 80053; 81001; 82728; 82962; 83540; 83550; 83605; 83690; 85025; 86140; 87040; 96365; 96367; 96375; 99285; G0378; J0744; J2060; J2405; J3490; J7030; J9999